=== PATIENT | female | born 1990 | race Caucasian/White ===

== ENCOUNTER 2021-09-06 17:04 | Emergency (ER) | payer OTHER, SELFPAY ==
[2021-09-06 18:20] VITALS: BP 144/78; PULSE 105; RESP 18; TEMP 36.3; O2SAT 98; BMI 48.6
--- NOTE | 2021-09-06 22:50 | PC.NURSE ---
patient not in waiting room at this time, appears to have eloped
== END 2021-09-06 22:52 | disposition left against medical advice (07) ==
PROVIDERS: Emergency Provider Emergency Medicine
DX: R42 Dizziness and giddiness (principal)
CPT/HCPCS: 99281; 99282

== ENCOUNTER 2021-12-18 20:40 | Emergency (ER) | payer OTHER, SELFPAY ==
--- NOTE | ~2021-12-18 | XR_ITS ---
EXAMINATION: XR CHEST CLINICAL INFORMATION: Cough and shortness of breath COMPARISON: None TECHNIQUE: Frontal view of the chest was obtained. FINDINGS: The lungs are clear. No airspace consolidation, pleural effusion, or pneumothorax. The cardiomediastinal silhouette is within normal limits. No acute osseous injury. XR/XR chest 1V IMPRESSION: No acute pulmonary process.
[2021-12-18 20:45] VITALS: BP 141/81; PULSE 95; RESP 18; TEMP 36.4; O2SAT 95; BMI 34.9
[2021-12-18 21:01] LABS: MANUAL DIFF FLAG NO
[2021-12-18 21:11] LABS: Basophils Absolute Auto 0.1 X10*3/uL (0.0-0.2); Basophils Percent Auto 0.6 % (0-2); Eosinophils Absolute Auto 0.6 X10*3/uL (0.0-0.4); Imm Gran Abs Auto 0.02 X10*3/uL (0.00-0.03); Imm Gran Pct Auto 0.2 % (0.0-0.4); Lymphocytes Absolute Auto 2.7 X10*3/uL (1.2-4.9); Lymphocytes Percent Auto 30.8 % (20-40); Mean Corpuscular HGB Conc 35.1 g/dl (31.0-35.0); Mean Corpuscular Hemoglobin 30.8 pg (27.0-33.0); Mean Corpuscular Volume 87.7 fL (80.0-98.0); Mean Platelet Volume 10.4 fL (9.4-12.3); Monocytes Absolute Auto 0.7 X10*3/uL (0.1-1.2); Monocytes Percent Auto 7.3 % (2-11); Neutrophils Absolute Auto 4.8 x10*3/uL (2.0-8.3); Neutrophils Percent Auto 54.1 % (45-73); Platelet Count 184 X10*3/uL (160-400); Red Blood Count 4.22 X10*6/uL (4.20-5.50); Red Cell Distribution Width 16.1 % (11.0-16.0); White Blood Count 8.9 X10*3/uL (4.8-10.8)
[2021-12-18 21:20] LABS: Alanine Aminotransferase 66 U/L (0-31); Albumin Level 3.8 g/dL (3.5-5.0); Alkaline Phosphatase 79 U/L (39-117); Anion Gap 14 (12-20); Aspartate Amino Transferase 102 U/L (5-31); Bilirubin Total 0.5 mg/dL (0.0-1.0); Blood Urea Nitrogen 5 mg/dL (9-16); Calcium 8.3 mg/dL (8.4-10.2); Carbon Dioxide 20 mmol/L (22-29); Chloride 107 mmol/L (96-108); Creatinine Clr Calc Pharmacy 104.8; Estimated Glomerular Filt Rate > 60; Glucose Random 172 mg/dL (60-115); IDNOW Serial# 16C4AD1C; Influenza A Negative (Negative); Influenza B2 Negative (Negative); Potassium 3.1 mmol/L (3.3-5.1); Sodium 138 mmol/L (135-145); Total Protein 7.5 g/dL (6.5-8.0)
[2021-12-18 21:21] LABS: COVID-19 Test Negative (Negative)
--- NOTE | 2021-12-18 23:07 | ED_ITS ---
HPI - URI/Sore Throat General Chief Complaint: Dyspnea Stated Complaint: bad cough, cant breathe. pneumonia? Time Seen by Provider: 12/18/21 23:06 Source: patient Mode of arrival: ambulatory Limitations: no limitations History of Present Illness MD elicited complaint: cough Pertinent past history: pneumonia and asthma Onset (ago): day(s) (3) Consistency: progressively worsening Severity: similar to previous episodes Description of mucous: yellow Able to tolerate fluids by mouth: Yes Exacerbating factors: other (coughing) Relieving factors: other (does have rescue inhaler) Associated symptoms: nasal congestion and cough Treatments prior to arrival: none Related Data Home Medications Medication Instructions Recorded Confirmed buprenorphine 8 mg-naloxone 2 mg 2 film buccal DAILY 05/04/20 sublingual film (Suboxone) buprenorphine HCl 8 mg sublingual 16 mg sublingual DAILY 01/05/21 tablet Previous Rx's Medication Instructions Recorded furosemide 20 mg tablet 10 mg PO QAM #30 tabs 05/01/20 albuterol sulfate 90 mcg/actuation 2 puff inhalation QID shortness of 07/27/20 aerosol inhaler breath or wheezing #8.5 grams furosemide 20 mg tablet 20 mg PO QAM PRN for swelling #30 11/01/20 tabs montelukast 10 mg tablet 10 mg PO DAILY #30 tabs 05/05/21 bupropion HCl 200 mg tablet,12 hr 200 mg PO BID #180 caps 06/11/21 sustained-release aripiprazole 2 mg tablet 2 mg PO DAILY #30 tabs 10/01/21 amoxicillin 875 mg-potassium 1 tab PO BID #14 tabs 12/18/21 clavulanate 125 mg tablet prednisone 20 mg tablet 40 mg PO DAILY 4 days #8 tabs 12/18/21 Allergies Allergy/AdvReac Type Severity Reaction Status Date / Time No Known Allergies Allergy Verified 01/05/21 09:28 Review of Systems Review of Systems: Constitutional : No Fever, No Chills ENT/Mouth : No Hoarseness, No sore throat, No Rhinorrhea Eyes: No Redness, No Discharge, No Vision Changes Cardiovascular : No Chest Pain, positive SOB, positive Dyspnea on Exertion, No Edema Respiratory : positive Cough, poss Sputum, positive Wheezing, Gastrointestinal : No Nausea, No Vomiting, No Diarrhea, No abdominal Pain Genitourinary : No Dysuria, No Hematuria Musculoskeletal : No joint pain, No Myalgias Skin : No rash Neuro : No Weakness, No Numbness, No Headache Psych : No anxiety, depression Heme/Lymph: No Bruising, No Bleeding Endocrine : No Polyuria, No Polydipsia All other systems reviewed and are negative ON LICENSE OF [facility] Past Medical History Attestation statement: The following information was validated with the patient. Medical History Active asthma Bipolar disorder Hepatitis C Social History Social History (Updated 12/18/21 @ 23:26 by Alona Colbert DO) Patient Tobacco Use Status: Tobacco use Unknown Advance Directives: No Advance Directives Information Provided: No Physical Exam Vital Signs: Vital Signs: Last Vital Signs Temp 98.1 F 12/18/21 23:13 Pulse 101 H 12/18/21 23:13 Resp 20 12/18/21 23:13 BP 131/73 12/18/21 23:13 Pulse Ox 95 12/18/21 23:13 O2 Del Method 12/18/21 23:13 BMI result Body Mass Index 34.9 Appearance: Alert. Oriented X3. No acute distress. Eyes: Pupils equal, round and reactive to light. ENT: Pharynx normal. Neck: Normal inspection. Neck supple. CVS: Normal heart rate and rhythm. Pulses normal. Respiratory: No respiratory distress. Breath sounds rhonchi and faint end exp wheezes noted Abdomen: Soft and nontender. Skin: Skin warm and dry. Normal skin color. Normal skin turgor. Extremities: No lower extremity edema. No calf ttp Neuro: Oriented X 3. No motor deficit. No sensory deficit. Course Course Course Narrative: I think the patient walked out prior to DC instructions and I couldn't listen to her lungs prior to DC MDM - URI/Sore Throat MDM Narrative Medical decision making narrative: 31 yo female with hx of asthma, pneumonia, hep C (suspected cause of her elevated LFTs has no abdominal complaints - pending treatment) here with c/o URI symptoms and cough will give neb treatment, start on steroids and augmentin for bronchitis. Anticipate DC home - not toxic, no resp distress or hypoxia. Lab Data Result diagrams: 12/18/21 20:52 12/18/21 20:52 Labs: Lab Results 12/18/21 12/18/21 12/18/21 Range/Units 20:52 20:52 20:52 WBC 8.9 (4.8-10.8) X10*3/uL RBC 4.22 (4.20-5.50) X10*6/uL Hgb 13.0 (12.0-16.0) g/dl Hct 37.0 (37.0-47.0) % MCV 87.7 (80.0-98.0) fL MCH 30.8 (27.0-33.0) pg MCHC 35.1 H (31.0-35.0) g/dl RDW 16.1 H (11.0-16.0) % Plt Count 184 (160-400) X10*3/uL MPV 10.4 (9.4-12.3) fL Immature Gran % (Auto) 0.2 (0.0-0.4) % Neut % (Auto) 54.1 (45-73) % Lymph % (Auto) 30.8 (20-40) % [place] % (Auto) 7.3 (2-11) % Eos % (Auto) 7.0 H (0-4) % Baso % (Auto) 0.6 (0-2) % Lymph # (Auto) 2.7 (1.2-4.9) X10*3/uL [place] # (Auto) 0.7 (0.1-1.2) X10*3/uL Eos # (Auto) 0.6 H (0.0-0.4) X10*3/uL Baso # (Auto) 0.1 (0.0-0.2) X10*3/uL Abs Immat Gran (auto) 0.02 (0.00-0.03) X10*3/uL Absolute Neuts (auto) 4.8 (2.0-8.3) x10*3/uL Absolute Nucleated RBC 0.000 (0.0-0.012) X10*3/uL Nucleated RBC % (auto) 0.0 (0.0-0.2) /100WBC Sodium 138 (135-145) mmol/L Potassium 3.1 L (3.3-5.1) mmol/L Chloride 107 (96-108) mmol/L Carbon Dioxide 20 L (22-29) mmol/L Anion Gap 14 (12-20) BUN 5 L (9-16) mg/dL Creatinine 0.75 (0.5-1.4) mg/dL Estim Creat Clear Calc 104.8 Estimated GFR > 60 Random Glucose 172 H (60-115) mg/dL Calcium 8.3 L (8.4-10.2) mg/dL Total Bilirubin 0.5 (0.0-1.0) mg/dL AST 102 H (5-31) U/L ALT 66 H (0-31) U/L Alkaline Phosphatase 79 (39-117) U/L Total Protein 7.5 (6.5-8.0) g/dL Albumin 3.8 (3.5-5.0) g/dL COVID-19 (JAMES) (Negative) COVID-19 Clin Com Influenza Type A (VALE) Negative (Negative) Influenza Type B (VALE) Negative (Negative) Influenza A & B Note See Note 12/18/21 Range/Units 20:52 WBC (4.8-10.8) X10*3/uL RBC (4.20-5.50) X10*6/uL Hgb (12.0-16.0) g/dl Hct (37.0-47.0) % MCV (80.0-98.0) fL MCH (27.0-33.0) pg MCHC (31.0-35.0) g/dl RDW (11.0-16.0) % Plt Count (160-400) X10*3/uL MPV (9.4-12.3) fL Immature Gran % (Auto) (0.0-0.4) % Neut % (Auto) (45-73) % Lymph % (Auto) (20-40) % [place] % (Auto) (2-11) % Eos % (Auto) (0-4) % Baso % (Auto) (0-2) % Lymph # (Auto) (1.2-4.9) X10*3/uL [place] # (Auto) (0.1-1.2) X10*3/uL Eos # (Auto) (0.0-0.4) X10*3/uL Baso # (Auto) (0.0-0.2) X10*3/uL Abs Immat Gran (auto) (0.00-0.03) X10*3/uL Absolute Neuts (auto) (2.0-8.3) x10*3/uL Absolute Nucleated RBC (0.0-0.012) X10*3/uL Nucleated RBC % (auto) (0.0-0.2) /100WBC Sodium (135-145) mmol/L Potassium (3.3-5.1) mmol/L Chloride (96-108) mmol/L Carbon Dioxide (22-29) mmol/L Anion Gap (12-20) BUN (9-16) mg/dL Creatinine (0.5-1.4) mg/dL Estim Creat Clear Calc Estimated GFR Random Glucose (60-115) mg/dL Calcium (8.4-10.2) mg/dL Total Bilirubin (0.0-1.0) mg/dL AST (5-31) U/L ALT (0-31) U/L Alkaline Phosphatase (39-117) U/L Total Protein (6.5-8.0) g/dL Albumin (3.5-5.0) g/dL COVID-19 (JAMES) Negative (Negative) COVID-19 Clin Com See Note Influenza Type A (VALE) (Negative) Influenza Type B (VALE) (Negative) Influenza A & B Note Discharge Plan Discharge Clinical Impression: Bronchitis, Acute hypokalemia, Elevated LFTs Patient Disposition: Elopement Instructions: Hypokalemia (ED), Acute Bronchitis (ED) Additional Instructions: return to ED for any worsening symptoms or concerns please follow up with your doctor about your liver you can use inhaler 2 to 4 puffs every 2 to 4 hours for wheezing Prescriptions: New prednisone 20 mg tablet 40 mg PO DAILY 4 Days Qty: 8 0RF amoxicillin-pot clavulanate 875-125 mg tablet 1 tab PO BID Qty: 14 0RF No Action furosemide 20 mg tablet 10 mg PO QAM Qty: 30 0RF Hold Instructions: Dose Change Rx Instructions: 1 tablet every a/m PRN for swelling buprenorphine-naloxone [Suboxone] 8-2 mg film 2 film buccal DAILY Rx Instructions: place 1 film on inside of (each) cheek albuterol sulfate 90 mcg/actuation HFA aerosol inhaler 2 puff inhalation QID Qty: 8.5 2RF furosemide 20 mg tablet 20 mg PO QAM PRN (Reason: for swelling) Qty: 30 4RF montelukast 10 mg tablet 10 mg PO DAILY Qty: 30 0RF bupropion HCl 200 mg tablet sustained-release 12 hr 200 mg PO BID Qty: 180 1RF aripiprazole 2 mg tablet 2 mg PO DAILY Qty: 30 1RF buprenorphine HCl 8 mg tablet, sublingual 16 mg sublingual DAILY Referrals: Physician,Unknown J [Primary Care Provider] - (PCP if not better x 2 days) Stand Alone Forms: Work/School Release
[2021-12-18 23:13] VITALS: BP 131/73; PULSE 101; RESP 20; TEMP 36.7; O2SAT 95
[2021-12-18] MEDS: Potassium Chloride ER 20 MEQ TAB.ER.PRT 40 MEQ PO (23:23)
[2021-12-18] MEDS: Amoxicillin/Potassium Clav 875 MG TABLET PO (23:23)
[2021-12-18] MEDS: predniSONE 20 MG TABLET 40 MG PO (23:23)
[2021-12-18] MEDS: Albuterol Sulfate (0.083%) 2.5 MG/3 ML VIAL.NEB INHALE (23:38)
[2021-12-18] MEDS: Albuterol Sulfate 90 MCG 8 GM INHALER 2 PUFF INHALE (23:38)
== END 2021-12-19 00:31 | disposition left against medical advice (07) ==
PROVIDERS: Emergency Provider Emergency Medicine
DX: J40 Bronchitis, not specified as acute or chronic (principal); E87.6 Hypokalemia; R05.9 Cough, unspecified; R06.02 Shortness of breath; R79.89 Other specified abnormal findings of blood chemistry; Z20.822 Contact with and (suspected) exposure to COVID-19; Z79.899 Other long term (current) drug therapy
CPT/HCPCS: 71045; 80053; 85025; 87502; 87635; 99284

== ENCOUNTER 2022-03-02 16:45 | Emergency (ER) | payer OTHER, SELFPAY ==
[2022-03-02 16:48] VITALS: BP 158/78; PULSE 107; RESP 20; TEMP 36.9; O2SAT 97; BMI 44.7
[2022-03-02 17:33] LABS: MANUAL DIFF FLAG NO
[2022-03-02 17:48] LABS: COVID-19 Test Negative (Negative); IDNOW Serial# 16C4AD1C
[2022-03-02 17:55] LABS: Anion Gap 15 (12-20); Blood Urea Nitrogen 4 mg/dL (9-16); Calcium 8.6 mg/dL (8.4-10.2); Carbon Dioxide 21 mmol/L (22-29); Chloride 107 mmol/L (96-108); Creatinine Clr Calc Pharmacy 137.2; Estimated Glomerular Filt Rate > 60; Glucose Random 137 mg/dL (60-115); Potassium 3.2 mmol/L (3.3-5.1); Sodium 140 mmol/L (135-145)
[2022-03-02 18:04] LABS: Basophils Absolute Auto 0.1 X10*3/uL (0.0-0.2); Basophils Percent Auto 0.5 % (0-2); Eosinophils Absolute Auto 0.3 X10*3/uL (0.0-0.4); Eosinophils Percent Auto 2.8 % (0-4); Hematocrit 35.6 % (37.0-47.0); Hemoglobin 12.4 g/dl (12.0-16.0); Imm Gran Abs Auto 0.05 X10*3/uL (0.00-0.03); Imm Gran Pct Auto 0.5 % (0.0-0.4); Lymphocytes Absolute Auto 2.5 X10*3/uL (1.2-4.9); Mean Corpuscular HGB Conc 34.8 g/dl (31.0-35.0); Mean Corpuscular Hemoglobin 31.5 pg (27.0-33.0); Mean Corpuscular Volume 90.4 fL (80.0-98.0); Mean Platelet Volume 10.5 fL (9.4-12.3); Monocytes Absolute Auto 0.7 X10*3/uL (0.1-1.2); Monocytes Percent Auto 6.2 % (2-11); Neutrophils Absolute Auto 6.9 x10*3/uL (2.0-8.3); Platelet Count 142 X10*3/uL (160-400); Red Blood Count 3.94 X10*6/uL (4.20-5.50); Red Cell Distribution Width 13.3 % (11.0-16.0); White Blood Count 10.4 X10*3/uL (4.8-10.8)
== END 2022-03-02 21:38 | disposition left against medical advice (07) ==
LOC: HO.ED 21:24
PROVIDERS: Emergency Provider Emergency Medicine
DX: J45.909 Unspecified asthma, uncomplicated (principal); R06.02 Shortness of breath; Z20.822 Contact with and (suspected) exposure to COVID-19
CPT/HCPCS: 36415; 80048; 85025; 87635; 99281; 99283

== ENCOUNTER 2022-03-03 01:11 | Emergency (ER) | payer OTHER, SELFPAY ==
[2022-03-03 01:16] VITALS: BP 135/72; PULSE 95; RESP 22; TEMP 37; O2SAT 94; BMI 24.5
--- NOTE | 2022-03-03 02:35 | ED.SOB ---
HPI - SOB/Dyspnea General Chief Complaint: Dyspnea Stated Complaint: Difficulty breathing Time Seen by Provider: 03/03/22 02:34 Source: patient Mode of arrival: ambulatory Limitations: no limitations History of Present Illness HPI Narrative: Patient is 4 months with history of asthma questionable sleep apnea comes here for increased shortness of breath for last 2-3 days with cough with mucopurulent phlegm no fever no chills saturating 94% on arrival had similar episode in the past with walking pneumonia Related Data Home Medications Medication Instructions Recorded Confirmed buprenorphine 8 mg-naloxone 2 mg 2 film buccal DAILY 05/04/20 sublingual film (Suboxone) buprenorphine HCl 8 mg sublingual 16 mg sublingual DAILY 01/05/21 tablet Previous Rx's Medication Instructions Recorded furosemide 20 mg tablet 10 mg PO QAM #30 tabs 05/01/20 albuterol sulfate 90 mcg/actuation 2 puff inhalation QID shortness of 07/27/20 aerosol inhaler breath or wheezing #8.5 grams furosemide 20 mg tablet 20 mg PO QAM PRN for swelling #30 11/01/20 tabs montelukast 10 mg tablet 10 mg PO DAILY #30 tabs 05/05/21 bupropion HCl 200 mg tablet,12 hr 200 mg PO BID #180 caps 06/11/21 sustained-release aripiprazole 2 mg tablet 2 mg PO DAILY #30 tabs 10/01/21 amoxicillin 875 mg-potassium 1 tab PO BID #14 tabs 12/18/21 clavulanate 125 mg tablet prednisone 20 mg tablet 40 mg PO DAILY 4 days #8 tabs 12/18/21 cefuroxime axetil 500 mg tablet 500 mg PO BID #20 tabs 03/03/22 prednisone 20 mg tablet 40 mg PO DAILY #10 tabs 03/03/22 Allergies Allergy/AdvReac Type Severity Reaction Status Date / Time No Known Allergies Allergy Verified 03/03/22 01:19 Review of Systems Review of Systems: Yes all other systems are reviewed and are negative PMFSH Past Medical History Medical History Active asthma Bipolar disorder Hepatitis C Social History Social History Patient Tobacco Use Status: Tobacco use Unknown Advance Directives: No Advance Directives Information Provided: Yes Physical Exam Vital Signs: Vital Signs: Last Vital Signs Temp 98.6 F 03/03/22 01:16 Pulse 88 03/03/22 03:09 Resp 16 03/03/22 03:09 BP 135/72 03/03/22 01:16 Pulse Ox 94 03/03/22 01:16 O2 Del Method 03/03/22 01:16 BMI result Body Mass Index 24.5 Appearance: Alert. Oriented X3. No acute distress. Eyes: No pallor ENT: Pharynx normal. Oral Mucosa moist Neck: Normal inspection. Neck supple. CVS: Normal heart rate and rhythm. Pulses normal. Respiratory: Mild distress Equal air entry bilateral, bilateral wheezing and rhonchi Abdomen: Gravid uterus ,Bowel sounds are present, no mass palpable, no CVA tenderness Skin: Skin warm and dry. Normal skin color. Normal skin turgor. Extremities: No lower extremity edema. No calf tenderness Neuro: Oriented X 3. Discharge Plan Discharge Clinical Impression: Acute asthmatic bronchitis Patient Disposition: Home, Self-Care Instructions: Acute Bronchitis (ED) Additional Instructions: Continue to use your inhaler Take prednisone and Ceftin as prescribed and follow with PCP Prescriptions: New prednisone 20 mg tablet 40 mg PO DAILY Qty: 10 0RF cefuroxime axetil 500 mg tablet 500 mg PO BID Qty: 20 0RF No Action furosemide 20 mg tablet 10 mg PO QAM Qty: 30 0RF Hold Instructions: Dose Change Rx Instructions: 1 tablet every a/m PRN for swelling buprenorphine-naloxone [Suboxone] 8-2 mg film 2 film buccal DAILY Rx Instructions: place 1 film on inside of (each) cheek albuterol sulfate 90 mcg/actuation HFA aerosol inhaler 2 puff inhalation QID Qty: 8.5 2RF furosemide 20 mg tablet 20 mg PO QAM PRN (Reason: for swelling) Qty: 30 4RF montelukast 10 mg tablet 10 mg PO DAILY Qty: 30 0RF bupropion HCl 200 mg tablet sustained-release 12 hr 200 mg PO BID Qty: 180 1RF aripiprazole 2 mg tablet 2 mg PO DAILY Qty: 30 1RF prednisone 20 mg tablet 40 mg PO DAILY 4 Days Qty: 8 0RF amoxicillin-pot clavulanate 875-125 mg tablet 1 tab PO BID Qty: 14 0RF buprenorphine HCl 8 mg tablet, sublingual 16 mg sublingual DAILY
[2022-03-03 03:09] VITALS: PULSE 88; RESP 16; O2SAT 97
[2022-03-03] MEDS: Albuterol/Iprat 2.5/0.5MG 3 ML AMPUL.NEB INHALE (03:09)
[2022-03-03] MEDS: Albuterol Sulfate (0.083%) 2.5 MG/3 ML VIAL.NEB INHALE (03:09)
[2022-03-03] MEDS: predniSONE 20 MG TABLET 40 MG PO (03:24)
--- NOTE | 2022-03-03 03:26 | PC.NURSE ---
Pt a&o, no sign of distress. Medicated pt before discharge. Reviewed discharge instruction before discharge. Pt verbalized understanding.
== END 2022-03-03 03:28 | disposition home or self-care (01) ==
PROVIDERS: Emergency Provider Internal Medicine
DX: J45.909 Unspecified asthma, uncomplicated (principal); R06.02 Shortness of breath; Z79.899 Other long term (current) drug therapy
CPT/HCPCS: 94640; 99283; 99284

== ENCOUNTER 2022-05-12 16:46 | Emergency (ER) | payer OTHER, SELFPAY ==
--- NOTE | ~2022-05-12 | US_ITS ---
EXAMINATION: US VENOUS ULTRASOUND WITH DOPPLER LOWER EXTREMITY, BILATERAL CLINICAL INFORMATION: Bilateral lower leg swelling and pain. 25 weeks . COMPARISON: None TECHNIQUE: Ultrasound of the deep veins is performed from the hip to the calf with compression sonography and color and pulse Doppler assessment. Spectral analysis with color-flow imaging is performed. FINDINGS: RIGHT: There is normal venous compression and respiratory variation and augmented flow. The visualized common femoral vein, superficial femoral vein, profunda femoral vein, popliteal vein, and the trifurcation region shows no evidence of deep venous thrombosis. There is no significant popliteal fossa cyst. The peroneal calf veins are not seen. Small benign-appearing lymph node in the right proximal thigh/groin noted measuring 0.7 cm in short axis. LEFT: There is normal venous compression and respiratory variation and augmented flow. The visualized common femoral vein, superficial femoral vein, profunda femoral vein, popliteal vein, and the trifurcation region shows no evidence of deep venous thrombosis. There is no significant popliteal fossa cyst. The peroneal calf veins are not seen. If the patient's symptoms persist, followup ultrasound in 5 days 7 days might be of value to exclude proximal propagation from a non-visualized calf vein. US/US venous duplex LE BI IMPRESSION: 1. No DVT demonstrated in the bilateral lower extremity.
--- NOTE | ~2022-05-12 | XR_ITS ---
EXAMINATION: XR CHEST CLINICAL INFORMATION: Shortness of breath. . COMPARISON: Chest radiograph 12/18/2021. TECHNIQUE: Frontal view of the chest was obtained. FINDINGS: The patient is slightly rotated limiting assessment of the cardiomediastinal silhouette. Apparent widening of the right lower mediastinum is likely artifactual. No focal airspace opacity, pleural effusion or pneumothorax. No acute osseous abnormalities. The visualized upper abdomen is within normal limits. XR/XR chest 1V IMPRESSION: 1. No acute cardiopulmonary findings. 2. Apparent widening of the right lower mediastinum is likely artifactual and related with patient rotation.
[2022-05-12 16:52] VITALS: BP 150/78; PULSE 119; RESP 22; TEMP 36; O2SAT 97; BMI 47.2
--- NOTE | 2022-05-12 16:53 | ED_ITS ---
HPI - Extremity Injury (Lower) General Chief Complaint: General Medical <GILBERTO Wharton - Last Filed: 05/12/22 17:01> Stated Complaint: bilateral leg swelling <GILBERTO Wharton - Last Filed: 05/12/22 17:01> Time Seen by Provider: 05/12/22 17:11 <GILBERTO Wharton - Last Filed: 05/12/22 17:01> Source: patient <Tanvi Vazquez MD - Last Filed: 05/12/22 19:19> Mode of arrival: ambulatory <Tanvi Vazquez MD - Last Filed: 05/12/22 19:19> Limitations: no limitations <Tanvi Vazquez MD - Last Filed: 05/12/22 19:19> History of Present Illness HPI Narrative: Patient comes to the emergency room complaining of cough, shortness of breath and lower extremity edema for a week. Patient is known to have asthma, used her inhaler without any relief. Patient is a female at 25 weeks of gestational age. The patient states that she has not had any abdominal pain, no vaginal leakage/bleeding. Patient states that for her 1st , she had lower extremity edema, she was given Lasix and then she was doing better. To her knowledge, patient has never been d iagnosed with preeclampsia or HELLP syndrome. Patient states that in all her doctor visits or ER visits, her blood pressure is initially high and then it comes back to normal within a few minutes. This time, patient complaining shortness of breath and lower extremity edema. <Tanvi Vazquez MD - Last Filed: 05/12/22 19:19> Related Data Home Medications: Home Medications Medication Instructions Recorded Confirmed buprenorphine 8 mg-naloxone 2 mg 2 film buccal DAILY 05/04/20 sublingual film (Suboxone) buprenorphine HCl 8 mg sublingual 16 mg sublingual DAILY 01/05/21 tablet Previous Rx's Medication Instructions Recorded furosemide 20 mg tablet 10 mg PO QAM #30 tabs 05/01/20 albuterol sulfate 90 mcg/actuation 2 puff inhalation QID shortness of 07/27/20 aerosol inhaler breath or wheezing #8.5 grams furosemide 20 mg tablet 20 mg PO QAM PRN for swelling #30 11/01/20 tabs montelukast 10 mg tablet 10 mg PO DAILY #30 tabs 05/05/21 bupropion HCl 200 mg tablet,12 hr 200 mg PO BID #180 caps 06/11/21 sustained-release aripiprazole 2 mg tablet 2 mg PO DAILY #30 tabs 10/01/21 amoxicillin 875 mg-potassium 1 tab PO BID #14 tabs 12/18/21 clavulanate 125 mg tablet prednisone 20 mg tablet 40 mg PO DAILY 4 days #8 tabs 12/18/21 cefuroxime axetil 500 mg tablet 500 mg PO BID #20 tabs 03/03/22 prednisone 20 mg tablet 40 mg PO DAILY #10 tabs 03/03/22 <GILBERTO Wharton - Last Filed: 05/12/22 17:01> Allergies/Adverse Reactions: Allergies Allergy/AdvReac Type Severity Reaction Status Date / Time No Known Allergies Allergy Verified 03/03/22 01:19 <GILBERTO Wharton - Last Filed: 05/12/22 17:01> Review of Systems Review of Systems: Constitutional : No Weight loss, No Fever, No Chills, No Night Sweats, No Fatigue, No Malaise ENT/Mouth : No Hearing loss, No Ear Pain, No Nasal Congestion, No Sinus Pain, No Hoarseness, No sore throat, No Rhinorrhea, No Swallowing Difficulty Eyes: No Eye Pain, No Swelling, No Redness, No Foreign Body, No Discharge, No Vision Changes Cardiovascular : No Chest Pain, No SOB, No Dyspnea on Exertion, no orthopnea, complaining of lower extremity edema worsening over a week Respiratory : Complaining of cough, wheezing not responding well to albuterol treatment. Gastrointestinal : No Nausea, No Vomiting, No Diarrhea, No Constipation, No ab dominal Pain, No Hematochezia, No Melena Genitourinary : no irregular bleeding, No Dysuria, No Urinary Frequency, No Hematuria, No Urinary Incontinence, No Urgency, No Flank Pain, No Urinary Flow Changes, No Hesitancy Musculoskeletal : No joint pain, No Myalgias, No Joint Swelling Skin : No Skin Lesions, No rash Neuro : No Weakness, No Numbness, No Paresthesias, No Loss of Consciousness, No Dizziness, No Headache Psych : No Anxiety/Panic, No Depression, No SI/HI/AH/VH, No Social Issues, Heme/Lymph: No Bruising, No Bleeding,No Lymphadenopathy Endocrine : No Polyuria, No Polydipsia, No Temperature Intolerance <Tanvi Vazquez MD - Last Filed: 05/12/22 19:19> [facility] Past Medical History Medical History: Medical History Active asthma Bipolar disorder Hepatitis C <GILBERTO Wharton - Last Filed: 05/12/22 17:01> Social History Social History: Social History Alcohol intake: never Patient Tobacco Use Status: Tobacco use Unknown Smoked in Last 30 Days: Yes Use of substances other than those prescribed or required for medical reasons: No Advance Directives: No Advance Directives Information Provided: Yes <GILBERTO Wharton - Last Filed: 05/12/22 17:01> Physical Exam Vital Signs: Vital Signs: Last Vital Signs Temp 96.8 F 05/12/22 16:52 Pulse 92 05/12/22 18:16 Resp 18 05/12/22 18:16 BP 150/78 H 05/12/22 16:52 Pulse Ox 97 05/12/22 16:52 O2 Del Method 05/12/22 16:52 BMI result Body Mass Index 47.2 <GILBERTO Wharton - Last Filed: 05/12/22 17:01> Vital Signs: Last Vital Signs Temp 96.8 F 05/12/22 16:52 Pulse 92 05/12/22 18:16 Resp 18 05/12/22 18:16 BP 150/78 H 05/12/22 16:52 Pulse Ox 97 05/12/22 16:52 O2 Del Method 05/12/22 16:52 BMI result Body Mass Index 47.2 <Tanvi Vazquez MD - Last Filed: 05/12/22 19:19> Const: Other: Appearance: Alert. Oriented X3. No acute distress. Eyes: Pupils equal, round and reactive to light. ENT: Pharynx normal. Neck: Normal inspection. Neck supple. No lymph nodes noted. No crepitus CVS: Normal heart rate and rhythm. Pulses normal. Normal S1 and S2 Respiratory: No respiratory distress. Breath sounds normal. No Wheezing. No rales Abdomen: Soft and nontender. No rigidity. No distention. Patient has edematous skin around the lower abdomen with pitting edema, bedside ultrasound shows a heart rate of approximately 120-130, good movement, no abdominal pain at all. Skin: Skin warm and dry. Normal skin color. Normal skin turgor. Extremities: No lower extremity edema. No Lacerations. No Rash Neuro: Oriented X 3. No motor deficit. No sensory deficit. Moving all extremities. No slurred speech. CN 2 through 12 grossly intact Psych: calm, cooperative, normal affect <Tanvi Vazquez MD - Last Filed: 05/12/22 19:19> Course Course Course Narrative: RME--32-year-old female with a past medical history of asthma, bipolar, at 25 weeks' gestation presenting complaining of bilateral LE swelling, pain, and SOB worsening over the past week. Admits to similar symptoms during prior requiring IV Lasix. Denies any -related complaints at present including vaginal bleeding/discharge or abdominal pain + very tense, swollen and painful bilateral LE pitting edema, patient very dyspneic and SOB when walked into triage. Expiratory wheeze noted EKG, labs, CXR, DuoNeb ordered Charge nurse aware and patient to be brought back <GILBERTO Wharton - Last Filed: 05/12/22 17:01> RME--32-year-old female with a past medical history of asthma, bipolar, at 25 weeks' gestation presenting complaining of bilateral LE swelling, pain, and SOB worsening over the past week. Admits to similar symptoms during prior requiring IV Lasix. Denies any -related complaints at present including vaginal bleeding/discharge or abdominal pain + very tense, swollen and painful bilateral LE pitting edema, patient very dyspneic and SOB when walked into triage. Expiratory wheeze noted EKG, labs, CXR, DuoNeb ordered Charge nurse aware and patient to be brought back I discussed the patient with Dr. Krishnamurthy, who is concerned that patient needs constant heart rate monitoring. Also, patient is to be ruled out for cardiomyopathy and pulmonary embolism. -ultrasound is negative for DVT. Patient is no longer wheezing after albuterol treatment and Solu-Medrol. When trying to get in touch with [facility] to transfer the patient 19:10, I spoke with packing and final assembly supervisor resident Dr. Monica Cabello, pt will be going to for further monitoring I discussed the plan with the patient, agreeable. Patient will be taken by ambulance Of note, patient's blood pressure has been fluctuating between 150/78 to 114 over 53, back to 150 systolic. <Tanvi Vazquez MD - Last Filed: 05/12/22 19:19> Medications Administered Discontinued Medications Generic Name Dose Route Start Last Admin Trade Name Freq PRN Reason Stop Dose Admin Albuterol/Ipratropium 3 ml 05/12/22 16:53 05/12/22 18:16 Albuterol/Iprat 2.5/0.5mg 3 Ml Ampul.Neb INHALE 05/12/22 16:54 3 ml ONCE ONE Administration Methylprednisolone Sodium Succinate 125 mg 05/12/22 17:42 05/12/22 18:32 Methylprednisolone Sod Succ 125 Mg/2 Ml Vial IVPUSH 05/12/22 17:43 125 mg ONCE ONE Administration <GILBERTO Wharton - Last Filed: 05/12/22 17:01> Medications Administered Discontinued Medications Generic Name Dose Route Start Last Admin Trade Name Freq PRN Reason Stop Dose Admin Albuterol/Ipratropium 3 ml 05/12/22 16:53 05/12/22 18:16 Albuterol/Iprat 2.5/0.5mg 3 Ml Ampul.Neb INHALE 05/12/22 16:54 3 ml ONCE ONE Administration Methylprednisolone Sodium Succinate 125 mg 05/12/22 17:42 05/12/22 18:32 Methylprednisolone Sod Succ 125 Mg/2 Ml Vial IVPUSH 05/12/22 17:43 125 mg ONCE ONE Administration <Tanvi Vazquez MD - Last Filed: 05/12/22 19:19> MDM - Extremity Injury (Lower) Lab Data Result diagrams: : 05/12/22 17:43 05/12/22 17:43 <GILBERTO Wharton - Last Filed: 05/12/22 17:01> Labs: Lab Results 05/12/22 05/12/22 05/12/22 Range/Units 17:43 17:43 17:43 WBC 9.3 (4.8-10.8) X10*3/uL RBC 3.37 L (4.20-5.50) X10*6/uL Hgb 10.5 L (12.0-16.0) g/dl Hct 30.8 L (37.0-47.0) % MCV 91.4 (80.0-98.0) fL MCH 31.2 (27.0-33.0) pg MCHC 34.1 (31.0-35.0) g/dl RDW 12.9 (11.0-16.0) % Plt Count 149 L (160-400) X10*3/uL MPV 10.3 (9.4-12.3) fL Immature Gran % (Auto) 0.5 H (0.0-0.4) % Neut % (Auto) 70.4 (45-73) % Lymph % (Auto) 18.2 L (20-40) % [place] % (Auto) 5.7 (2-11) % Eos % (Auto) 4.7 H (0-4) % Baso % (Auto) 0.5 (0-2) % Lymph # (Auto) 1.7 (1.2-4.9) X10*3/uL [place] # (Auto) 0.5 (0.1-1.2) X10*3/uL Eos # (Auto) 0.4 (0.0-0.4) X10*3/uL Baso # (Auto) 0.1 (0.0-0.2) X10*3/uL Abs Immat Gran (auto) 0.05 H (0.00-0.03) X10*3/uL Absolute Neuts (auto) 6.6 (2.0-8.3) x10*3/uL Absolute Nucleated RBC 0.000 (0.0-0.012) X10*3/uL Nucleated RBC % (auto) 0.0 (0.0-0.2) /100WBC PT 13.1 (10.0-13.1) SEC INR 1.1 (0.9-1.1) Sodium 139 (135-145) mmol/L Potassium 3.4 (3.3-5.1) mmol/L Chloride 106 (96-108) mmol/L Carbon Dioxide 23 (22-29) mmol/L Anion Gap 13 (12-20) BUN 4 L (9-16) mg/dL Creatinine 0.63 (0.5-1.4) mg/dL Estim Creat Clear Calc 147.1 Estimated GFR > 60 Random Glucose 142 H (60-115) mg/dL Calcium 8.2 L (8.4-10.2) mg/dL Magnesium 1.6 (1.6-2.6) mg/dL Total Bilirubin 0.8 (0.0-1.0) mg/dL Direct Bilirubin 0.5 (0.0-0.5) mg/dL AST 100 H (5-31) U/L ALT 43 H (0-31) U/L Alkaline Phosphatase 106 (39-117) U/L Troponin I High Sens (<3.5-17.0) ng/L B-Natriuretic Peptide (<100) pg/mL Total Protein 6.6 (6.5-8.0) g/dL Albumin 3.1 L (3.5-5.0) g/dL Beta HCG, Quant 8262 mIU/mL COVID-19 (JAMES) (Negative) COVID-19 Clin Com 05/12/22 05/12/22 05/12/22 Range/Units 17:43 17:43 17:55 WBC (4.8-10.8) X10*3/uL RBC (4.20-5.50) X10*6/uL Hgb (12.0-16.0) g/dl Hct (37.0-47.0) % MCV (80.0-98.0) fL MCH (27.0-33.0) pg MCHC (31.0-35.0) g/dl RDW (11.0-16.0) % Plt Count (160-400) X10*3/uL MPV (9.4-12.3) fL Immature Gran % (Auto) (0.0-0.4) % Neut % (Auto) (45-73) % Lymph % (Auto) (20-40) % [place] % (Auto) (2-11) % Eos % (Auto) (0-4) % Baso % (Auto) (0-2) % Lymph # (Auto) (1.2-4.9) X10*3/uL [place] # (Auto) (0.1-1.2) X10*3/uL Eos # (Auto) (0.0-0.4) X10*3/uL Baso # (Auto) (0.0-0.2) X10*3/uL Abs Immat Gran (auto) (0.00-0.03) X10*3/uL Absolute Neuts (auto) (2.0-8.3) x10*3/uL Absolute Nucleated RBC (0.0-0.012) X10*3/uL Nucleated RBC % (auto) (0.0-0.2) /100WBC PT (10.0-13.1) SEC INR (0.9-1.1) Sodium (135-145) mmol/L Potassium (3.3-5.1) mmol/L Chloride (96-108) mmol/L Carbon Dioxide (22-29) mmol/L Anion Gap (12-20) BUN (9-16) mg/dL Creatinine (0.5-1.4) mg/dL Estim Creat Clear Calc Estimated GFR Random Glucose (60-115) mg/dL Calcium (8.4-10.2) mg/dL Magnesium (1.6-2.6) mg/dL Total Bilirubin (0.0-1.0) mg/dL Direct Bilirubin (0.0-0.5) mg/dL AST (5-31) U/L ALT (0-31) U/L Alkaline Phosphatase (39-117) U/L Troponin I High Sens < 3.5 (<3.5-17.0) ng/L B-Natriuretic Peptide 22 (<100) pg/mL Total Protein (6.5-8.0) g/dL Albumin (3.5-5.0) g/dL Beta HCG, Quant mIU/mL COVID-19 (JAMES) Negative (Negative) COVID-19 Clin Com See Note <GILBERTO Wharton - Last Filed: 05/12/22 17:01> Lab Results 05/12/22 05/12/22 05/12/22 Range/Units 17:43 17:43 17:43 WBC 9.3 (4.8-10.8) X10*3/uL RBC 3.37 L (4.20-5.50) X10*6/uL Hgb 10.5 L (12.0-16.0) g/dl Hct 30.8 L (37.0-47.0) % MCV 91.4 (80.0-98.0) fL MCH 31.2 (27.0-33.0) pg MCHC 34.1 (31.0-35.0) g/dl RDW 12.9 (11.0-16.0) % Plt Count 149 L (160-400) X10*3/uL MPV 10.3 (9.4-12.3) fL Immature Gran % (Auto) 0.5 H (0.0-0.4) % Neut % (Auto) 70.4 (45-73) % Lymph % (Auto) 18.2 L (20-40) % [place] % (Auto) 5.7 (2-11) % Eos % (Auto) 4.7 H (0-4) % Baso % (Auto) 0.5 (0-2) % Lymph # (Auto) 1.7 (1.2-4.9) X10*3/uL [place] # (Auto) 0.5 (0.1-1.2) X10*3/uL Eos # (Auto) 0.4 (0.0-0.4) X10*3/uL Baso # (Auto) 0.1 (0.0-0.2) X10*3/uL Abs Immat Gran (auto) 0.05 H (0.00-0.03) X10*3/uL Absolute Neuts (auto) 6.6 (2.0-8.3) x10*3/uL Absolute Nucleated RBC 0.000 (0.0-0.012) X10*3/uL Nucleated RBC % (auto) 0.0 (0.0-0.2) /100WBC PT 13.1 (10.0-13.1) SEC INR 1.1 (0.9-1.1) Sodium 139 (135-145) mmol/L Potassium 3.4 (3.3-5.1) mmol/L Chloride 106 (96-108) mmol/L Carbon Dioxide 23 (22-29) mmol/L Anion Gap 13 (12-20) BUN 4 L (9-16) mg/dL Creatinine 0.63 (0.5-1.4) mg/dL Estim Creat Clear Calc 147.1 Estimated GFR > 60 Random Glucose 142 H (60-115) mg/dL Calcium 8.2 L (8.4-10.2) mg/dL Magnesium 1.6 (1.6-2.6) mg/dL Total Bilirubin 0.8 (0.0-1.0) mg/dL Direct Bilirubin 0.5 (0.0-0.5) mg/dL AST 100 H (5-31) U/L ALT 43 H (0-31) U/L Alkaline Phosphatase 106 (39-117) U/L Troponin I High Sens (<3.5-17.0) ng/L B-Natriuretic Peptide (<100) pg/mL Total Protein 6.6 (6.5-8.0) g/dL Albumin 3.1 L (3.5-5.0) g/dL Beta HCG, Quant 8262 mIU/mL COVID-19 (JAMES) (Negative) COVID-19 Clin Com 05/12/22 05/12/22 05/12/22 Range/Units 17:43 17:43 17:55 WBC (4.8-10.8) X10*3/uL RBC (4.20-5.50) X10*6/uL Hgb (12.0-16.0) g/dl Hct (37.0-47.0) % MCV (80.0-98.0) fL MCH (27.0-33.0) pg MCHC (31.0-35.0) g/dl RDW (11.0-16.0) % Plt Count (160-400) X10*3/uL MPV (9.4-12.3) fL Immature Gran % (Auto) (0.0-0.4) % Neut % (Auto) (45-73) % Lymph % (Auto) (20-40) % [place] % (Auto) (2-11) % Eos % (Auto) (0-4) % Baso % (Auto) (0-2) % Lymph # (Auto) (1.2-4.9) X10*3/uL [place] # (Auto) (0.1-1.2) X10*3/uL Eos # (Auto) (0.0-0.4) X10*3/uL Baso # (Auto) (0.0-0.2) X10*3/uL Abs Immat Gran (auto) (0.00-0.03) X10*3/uL Absolute Neuts (auto) (2.0-8.3) x10*3/uL Absolute Nucleated RBC (0.0-0.012) X10*3/uL Nucleated RBC % (auto) (0.0-0.2) /100WBC PT (10.0-13.1) SEC INR (0.9-1.1) Sodium (135-145) mmol/L Potassium (3.3-5.1) mmol/L Chloride (96-108) mmol/L Carbon Dioxide (22-29) mmol/L Anion Gap (12-20) BUN (9-16) mg/dL Creatinine (0.5-1.4) mg/dL Estim Creat Clear Calc Estimated GFR Random Glucose (60-115) mg/dL Calcium (8.4-10.2) mg/dL Magnesium (1.6-2.6) mg/dL Total Bilirubin (0.0-1.0) mg/dL Direct Bilirubin (0.0-0.5) mg/dL AST (5-31) U/L ALT (0-31) U/L Alkaline Phosphatase (39-117) U/L Troponin I High Sens < 3.5 (<3.5-17.0) ng/L B-Natriuretic Peptide 22 (<100) pg/mL Total Protein (6.5-8.0) g/dL Albumin (3.5-5.0) g/dL Beta HCG, Quant mIU/mL COVID-19 (JAMES) Negative (Negative) COVID-19 Clin Com See Note <Tanvi Vazquez MD - Last Filed: 05/12/22 19:19> Imaging Data Chest x-ray: Radiologist's impression: INDINGS: The patient is slightly rotated limiting assessment of the cardiomediastinal silhouette. Apparent widening of the right lower mediastinum is likely artifactual. No focal airspace opacity, pleural effusion or pneumothorax. No acute osseous abnormalities. The visualized upper abdomen is within normal limits. XR/XR chest 1V IMPRESSION: 1.? No acute cardiopulmonary findings. 2.? Apparent widening of the right lower mediastinum is likely artifactual and related with patient rotation. <Tanvi Vazquez MD - Last Filed: 05/12/22 19:19> Bilateral lower extremity ultrasound: Radiologist's impression: IGHT: There is normal venous compression and respiratory variation and augmented flow. The visualized common femoral vein, superficial femoral vein, profunda femoral vein, popliteal vein, and the trifurcation region shows no evidence of deep venous thrombosis. ? There is no significant popliteal fossa cyst. The peroneal calf veins are not seen. Small benign-appearing lymph node in the right proximal thigh/groin noted measuring 0.7 cm in short axis. LEFT: There is normal venous compression and respiratory variation and augmented flow. The visualized common femoral vein, superficial femoral vein, profunda femoral vein, popliteal vein, and the trifurcation region shows no evidence of deep venous thrombosis. ? There is no significant popliteal fossa cyst. The peroneal calf veins are not seen. If the patient's symptoms persist, followup ultrasound in 5 days 7 days might be of value to exclude proximal propagation from a non-visualized calf vein. US/US venous duplex LE BI IMPRESSION: 1.? No DVT demonstrated in the bilateral lower extremity. <Tanvi Vazquez MD - Last Filed: 05/12/22 19:19> Critical Care Time Critical Care Time Critical Care Time: Yes <Tanvi Vazquez MD - Last Filed: 05/12/22 19:19> Total Critical Care Time: 30 <Tanvi Vazquez MD - Last Filed: 05/12/22 19:19> Attestation: I have personally provided critical care time. Time includes review of lab data, radiology results, discussion with consultants, and monitoring for potential decompensation. Intervention performed as documented. <Tanvi Vazquez MD - Last Filed: 05/12/22 19:19> Discharge Plan Discharge Clinical Impression: Bilateral lower extremity edema, Asthma exacerbation, Hypertension <GILBERTO Wharton - Last Filed: 05/12/22 17:01> Patient Disposition: [facility] <GILBERTO Wharton - Last Filed: 05/12/22 17:01> Transfer Details: [facility] W2 <GILBERTO Wharton - Last Filed: 05/12/22 17:01> [facility] <Tanvi Vazquez MD - Last Filed: 05/12/22 19:19> Prescriptions: No Action furosemide 20 mg tablet 10 mg PO QAM Qty: 30 0RF Hold Instructions: Dose Change Rx Instructions: 1 tablet every a/m PRN for swelling buprenorphine-naloxone [Suboxone] 8-2 mg film 2 film buccal DAILY Rx Instructions: place 1 film on inside of (each) cheek albuterol sulfate 90 mcg/actuation HFA aerosol inhaler 2 puff inhalation QID Qty: 8.5 2RF furosemide 20 mg tablet 20 mg PO QAM PRN (Reason: for swelling) Qty: 30 4RF montelukast 10 mg tablet 10 mg PO DAILY Qty: 30 0RF bupropion HCl 200 mg tablet sustained-release 12 hr 200 mg PO BID Qty: 180 1RF aripiprazole 2 mg tablet 2 mg PO DAILY Qty: 30 1RF prednisone 20 mg tablet 40 mg PO DAILY 4 Days Qty: 8 0RF amoxicillin-pot clavulanate 875-125 mg tablet 1 tab PO BID Qty: 14 0RF prednisone 20 mg tablet 40 mg PO DAILY Qty: 10 0RF cefuroxime axetil 500 mg tablet 500 mg PO BID Qty: 20 0RF buprenorphine HCl 8 mg tablet, sublingual 16 mg sublingual DAILY <GILBERTO Wharton - Last Filed: 05/12/22 17:01>
--- NOTE | 2022-05-12 16:56 | ECG_ITS ---
Test Reason : asthma Blood Pressure : / mmHG Vent. Rate : 100 BPM Atrial Rate : 100 BPM P-R Int : 144 ms QRS Dur : 088 ms QT Int : 380 ms P-R-T Axes : 052 020 060 degrees QTc Int : 490 ms Normal sinus rhythm Nonspecific ST and T wave abnormality Prolonged QT Abnormal ECG No previous ECGs available Referred By: Edith Cotton Electronically Signed By:KEITH PARRY MD
--- OUTSIDE RECORDS SUMMARY | 2022-05-12 17:29 | XMS_ITS | Continuity of Care Document ---
:1990 Author Organization [facility] ic Address [address] [place] [phone]- Care Team Providers Name Role Phone Aj Cavazos MD Primary Care Physician Encounter [facility] [place] Date(s): 02/28/20 - 05/01/[address] [id number] Attending Physician: Not on Staff, Attending Referring Physician: Aj Cavazos MD Allergies, Adverse Reactions, Alerts Substance Reaction Severity Status NKA Active Immunizations Given and Recorded Vaccine Date Status Refusal Reason pneumococcal 23-valent vaccine1 12/19/17 Given Not Given Vaccine Date Status Refusal Reason influenza virus vaccine, inactivated2 09/04/19 Not Given Patient Refuses 1Early/Late Reason: Med Not [id number] Comment: i was just sick, I dont want it Medications AirDuo RespiClick 232 mcg-14 mcg/inh inhalation powder 1, inhalation, Inhalation, 2 times a day, rinse mouth and throat after use, # 1 each, Refills 0, Tot. Refills 0, Maintenance, 03/18/20 17:23:00 EDT, Powder, Route to Pharmacy Electronically, [id number], [facility]/pharmacy #[id number], 15... Start Date: 03/18/20 Stop Date: 04/17/20 Status: Orderedalbuterol CFC free 90 mcg/inh inhalation aerosol 2, puffs, Inhalation, 4 times a day, PRN, # 25 Gm, Refills 0, Tot. Refills 0, Maintenance, 03/18/20 17:24:00 EDT, Aerosol, Route to Pharmacy Electronically, [id number], [facility]/pharmacy #[id number], 155, cm, 03/18/20 16:03:00 EDT, Heig... Start Date: 03/18/20 Status: Orderedalbuterol CFC free 90 mcg/inh inhalation aerosol 1, puffs, Inhalation, Every 4 hours, PRN, # 8 Gm, Refills 0, Maintenance, 03/17/20 16:22:00 EDT, Aerosol Start Date: 03/17/20 Status: OrderedbuPROPion 300 mg/24 hours (XL) oral tablet, extended release 1 tablet = 300 mg, By Mouth, Daily, # 30 tablet, 0 Refills, Maintenance, 03/18/20 17:24:00 EDT, XL Tablet, [facility]/pharmacy #[id number], 155, cm, 03/18/20 16:03:00 EDT, Height, 93.3, kg, 03/17/20 6:29:00 EDT, Dry Weight Start Date: 03/18/20 Stop Date: 04/17/20 Status: OrderedbusPIRone 10 mg oral tablet 10 mg, 1, tablet, By Mouth, 2 times a day, # 60 tablet, Refills 0, Tot. Refills 0, Maintenance, 03/18/20 17:24:00 EDT, [id number], cm, 03/18/20 16:03:00 EDT, Height, 93.3, kg, 03/17/20 6:29:00 EDT, Dry We... Start Date: 03/18/20 Status: Orderedcetirizine 10 mg oral tablet 1 tablet = 10 mg, By Mouth, Daily, # 30 tablet, 0 Refills, Maintenance, 03/18/20 17:24:00 EDT, Tablet, [facility]/pharmacy #[id number], 155, cm, 03/18/20 16:03:00 EDT, Height, 93.3, kg, 03/17/20 6:29:00 EDT, Dry Weight Start Date: 03/18/20 Status: OrderedcloNIDine 0.1 mg oral tablet 0.1 mg, By Mouth, 3 times a day, PRN, # 30 tablet, Refills 0, Tot. Refills 0, Maintenance, Anxiety, 03/18/20 17:21:00 EDT, [id number], cm, 03/18/20 16:03:00 EDT, Height, 93.3, kg, 03/17/20 6:29:00 EDT, . Start Date: 03/18/20 Stop Date: 04/17/20 Status: Orderedfolic acid 1 mg oral tablet 1 mg, 1, tablet, By Mouth, Daily, # 30 tablet, Refills 0, Tot. Refills 0, Maintenance, 03/18/20 17:21:00 EDT, [id number], cm, 03/18/20 16:03:00 EDT, Height, 93.3, kg, 03/17/20 6:29:00 EDT, Dry Weight Start Date: 03/18/20 Status: Orderedmultivitamin Multiple Vitamins oral tablet 1 tablet, By Mouth, Daily, # 30 tablet, 0 Refills, Maintenance, 03/18/20 17:20:00 EDT, Tablet, [id number], 1 tablet By Mouth Daily,x30 days, 155, cm, 03/18/20 16:03:00 EDT, Height, 93.3, kg, 03/17/20 6:29:00 EDT, Dry Weight Start Date: 03/18/20 Stop Date: 04/17/20 Status: OrderedrOPINIRole 1 mg oral tablet = 1 mg, By Mouth, 2 times a day, # 60 tablet, 0 Refills, Maintenance, 03/18/20 17:22:00 EDT, Tablet,[facility]/pharmacy #[id number], 155, cm, 03/18/20 16:03:00 EDT, Height, 93.3, kg, 03/17/20 6:29:00 EDT, Dry Weight Start Date: 03/18/20 Stop Date: 04/17/20 Status: OrderedSingulair 10 mg oral tablet 10 mg, 1, tablet, By Mouth, Daily, # 30 tablet, Refills 0, Tot. Refills 0, Maintenance, 03/18/20 17:23:00 EDT, Route to Pharmacy Electronically, [facility]/pharmacy #[id number], 155, cm, 03/18/20 16:03:00 EDT, Height, 93.3, kg, 03/17/20 6:29:00 EDT, Dry Weight Start Date: 03/18/20 Status: OrderedtraZODone 50 mg oral tablet 50 mg, 1, tablet, By Mouth, Daily at bedtime, PRN, # 30 tablet, Refills 0, Tot. Refills 0, Maintenance, Sleep, 03/18/20 17:22:00 EDT, Route to Pharmacy Electronically, [facility]/pharmacy #[id number], 155, cm, 03/18/20 16:03:00 EDT, Height, 93.3, kg, 03/17/20 6:29... Start Date: 03/18/20 Stop Date: 04/17/20 Status: Ordered Problem List Condition Effective Dates Status Health Status Informant Asthma(Confirmed) Active Social History Social History Type Response Smoking Status Never (less than 100 in life time) entered on: 02/27/20 Sex Female
--- OUTSIDE RECORDS SUMMARY | 2022-05-12 17:29 | XMS_ITS | Continuity of Care Document ---
:1990 Author Organization [facility] Address [address] [place] [id number]- Care Team Providers Name Role Phone Dirk GAYLE, Aj Hall Primary Care Physician [place] [facility] [place] 12/[place] - 02/20/21 [facility] [address] [place] [id number] Attending Physician: Alvarez Curran MD Admitting Physician: Alvarez Curran MD Referring Physician: Trinidad Tafoya DO Allergies, Adverse Reactions, Alerts Substance Reaction Severity Status NKA Active Immunizations Given and Recorded Vaccine Date Status Refusal Reason pneumococcal 23-valent vaccine1 12/19/17 Given Not Given Vaccine Date Status Refusal Reason influenza virus vaccine, inactivated2 09/04/19 Not Given Patient Refuses 1Early/Late Reason: Med Not [id number] Comment: i was just sick, I dont want it Medications AirDuo RespiClick 232 mcg-14 mcg/inh inhalation powder 1, inhalation, Inhalation, 2 times a day, rinse mouth and throat after use, # 1 each, Refills 0, Tot. Refills 0, Maintenance, 03/18/20 17:23:00 EDT, Powder, Route to Pharmacy Electronically, [id number], [facility]/pharmacy #[id number], 15... Start Date: 03/18/20 Stop Date: 04/17/20 Status: Orderedalbuterol CFC free 90 mcg/inh inhalation aerosol 2, puffs, Inhalation, 4 times a day, PRN, # 25 Gm, Refills 0, Tot. Refills 0, Maintenance, 03/18/20 17:24:00 EDT, Aerosol, Route to Pharmacy Electronically, [id number], [facility]/pharmacy #[id number], 155, cm, 03/18/20 16:03:00 EDT, Heig... Start Date: 03/18/20 Status: OrderedbuPROPion 300 mg/24 hours (XL) oral tablet, extended release 1 tablet = 300 mg, By Mouth, Daily, # 30 tablet, 0 Refills, Maintenance, 03/18/20 17:24:00 EDT, XL Tablet, [facility]/pharmacy #[id number], 155, cm, 03/18/20 16:03:00 EDT, Height, 93.3, kg, 03/17/20 6:29:00 EDT, Dry Weight Start Date: 03/18/20 Stop Date: 04/17/20 Status: Orderedcetirizine 10 mg oral tablet 1 tablet = 10 mg, By Mouth, Daily, # 30 tablet, 0 Refills, Maintenance, 03/18/20 17:24:00 EDT, Tablet, [facility]/pharmacy #[id number], 155, cm, 03/18/20 16:03:00 EDT, Height, 93.3, kg, 03/17/20 6:29:00 EDT, Dry Weight Start Date: 03/18/20 Status: OrderedColace sodium 100 mg oral capsule 100 mg, 1, capsule, By Mouth, 2 times a day, PRN, # 60 capsule, Refills 0, Tot. Refills 0, Maintenance, for constipation, 01/11/21 8:47:00 EDT, Route to Pharmacy Electronically, [facility]/pharmacy #[id number], Partial fill upon patient request if the prescription... Start Date: 01/11/21 Stop Date: 02/12/21 Status: Orderedfolic acid 1 mg oral tablet 1 mg, 1, tablet, By Mouth, Daily, # 30 tablet, Refills 0, Tot. Refills 0, Maintenance, 03/18/20 17:21:00 EDT, Route to Pharmacy Electronically, [facility]/pharmacy #[id number], 155, cm, 03/18/20 16:03:00 EDT, Height, 93.3, kg, 03/17/20 6:29:00 EDT, Dry Weight Start Date: 03/18/20 Status: Orderedmultivitamin Multiple Vitamins oral tablet 1 tablet, By Mouth, Daily, # 30 tablet, 0 Refills, Maintenance, 03/18/20 17:20:00 EDT, Tablet, [facility]/pharmacy #[id number], 1 tablet By Mouth Daily,x30 days, 155, cm, 03/18/20 16:03:00 EDT, Height, 93.3, kg, 03/17/20 6:29:00 EDT, Dry Weight Start Date: 03/18/20 Stop Date: 04/17/20 Status: OrderedSingulair 10 mg oral tablet 10 mg, 1, tablet, By Mouth, Daily, # 30 tablet, Refills 0, Tot. Refills 0, Maintenance, 03/18/20 17:23:00 EDT, Route to Pharmacy Electronically, [facility]/pharmacy #[id number], 155, cm, 03/18/20 16:03:00 EDT, Height, 93.3, kg, 03/17/20 6:29:00 EDT, Dry Weight Start Date: 03/18/20 Status: OrderedSubutex = 8 mg, Sublingual, 2 times a day, 0 Refills, Maintenance, 12/14/20 16:23:00 EDT, Partial fill upon patient request if the prescription is for a schedule II opioid drug. Start Date: 12/14/20 Status: Ordered Problem List Condition Effective Dates Status Health Status Informant Asthma(Confirmed) Active Anxiety and depression(Confirmed) Active Obesity during (Confirmed) Active Opioid use disorder(Confirmed)1, 2 Active Rh alloimmunization, maternal, Active antepartum (anti-c)(Confirmed) Seizure disorder(Confirmed) Active Hepatitis C(Confirmed) Active 1now on [id number] methadone Social History Social History Type Response Smoking Status Former smoker, quit more bridgette n 30 days ago; Number of years: 0.7; Started at age: 29; Stopped at age: 30; entered on: 09/01/20 Sex
--- OUTSIDE RECORDS SUMMARY | 2022-05-12 17:29 | XMS_ITS | Continuity of Care Document ---
:1990 Author Organization [facility] Address [address] [place] [phone]- Care Team Providers Name Role Phone Dirk GAYLE, Aj Hall Primary Care Physician Encounter [facility] Date(s): 11/18/20 - 12/18/[facility] [address] [place] [id number] Allergies, Adverse Reactions, Alerts Substance Reaction Severity Status NKA Active Immunizations Given and Recorded Vaccine Date Status Refusal Reason pneumococcal 23-valent vaccine1 12/19/17 Given Not Given Vaccine Date Status Refusal Reason influenza virus vaccine, inactivated2 09/04/19 Not Given Patient Refuses 1Early/Late Reason: Med Not [id number] Comment: i was just sick, I dont want it Medications AirDuo RespiClick 232 mcg-14 mcg/inh inhalation powder 1, inhalation, Inhalation, 2 times a day, rinse mouth and throat after use, # 1 each, Refills 0, Tot. Refills 0, Maintenance, 03/18/20 17:23:00 EDT, Powder, Route to Pharmacy Electronically, [id number], [facility]/pharmacy #[id number], 15... Start Date: 03/18/20 Stop Date: 04/17/20 Status: Orderedalbuterol CFC free 90 mcg/inh inhalation aerosol 2, puffs, Inhalation, 4 times a day, PRN, # 25 Gm, Refills 0, Tot. Refills 0, Maintenance, 03/18/20 17:24:00 EDT, Aerosol, Route to Pharmacy Electronically, [id number], [facility]/pharmacy #[id number], 155, cm, 03/18/20 16:03:00 EDT, Heig... Start Date: 03/18/20 Status: OrderedbuPROPion 300 mg/24 hours (XL) oral tablet, extended release 1 tablet = 300 mg, By Mouth, Daily, # 30 tablet, 0 Refills, Maintenance, 03/18/20 17:24:00 EDT, XL Tablet, [facility]/pharmacy #[id number], 155, cm, 03/18/20 16:03:00 EDT, Height, 93.3, kg, 03/17/20 6:29:00 EDT, Dry Weight Start Date: 03/18/20 Stop Date: 04/17/20 Status: Orderedcetirizine 10 mg oral tablet 1 tablet = 10 mg, By Mouth, Daily, # 30 tablet, 0 Refills, Maintenance, 03/18/20 17:24:00 EDT, Tablet, [facility]/pharmacy #[id number], 155, cm, 03/18/20 16:03:00 EDT, Height, 93.3, kg, 03/17/20 6:29:00 EDT, Dry Weight Start Date: 03/18/20 Status: Orderedfolic acid 1 mg oral tablet 1 mg, 1, tablet, By Mouth, Daily, # 30 tablet, Refills 0, Tot. Refills 0, Maintenance, 03/18/20 17:21:00 EDT, Route to Pharmacy Electronically, [facility]/pharmacy #[id number], 155, cm, 03/18/20 16:03:00 EDT, Height, 93.3, kg, 03/17/20 6:29:00 EDT, Dry Weight Start Date: 03/18/20 Status: Orderedmultivitamin Multiple Vitamins oral tablet 1 tablet, By Mouth, Daily, # 30 tablet, 0 Refills, Maintenance, 03/18/20 17:20:00 EDT, Tablet, [facility]/pharmacy #[id number], 1 tablet By Mouth Daily,x30 days, 155, cm, 03/18/20 16:03:00 EDT, Height, 93.3, kg, 03/17/20 6:29:00 EDT, Dry Weight Start Date: 03/18/20 Stop Date: 04/17/20 Status: OrderedSingulair 10 mg oral tablet 10 mg, 1, tablet, By Mouth, Daily, # 30 tablet, Refills 0, Tot. Refills 0, Maintenance, 03/18/20 17:23:00 EDT, Route to Pharmacy Electronically, [facility]/pharmacy #[id number], 155, cm, 03/18/20 16:03:00 EDT, [...] disorder(Confirmed) Active Hepatitis C(Confirmed) Active 1now on [id number] methadone Social History Social History Type Response Smoking Status Former smoker, quit more bridgette n 30 days ago; Number of years: 0.7; Started at age: 29; Stopped at age: 30; entered on: 09/01/20 Sex
--- OUTSIDE RECORDS SUMMARY | 2022-05-12 17:29 | XMS_ITS | Continuity of Care Document ---
:1990 Author Organization [facility] Address [address] [place] [id number]- Care Team Providers Name Role Phone Dirk GAYLE, Aj Hall Primary Care Physician Encounter [facility] [place] Date(s): 03/17/20 - 03/18/[address] [address]- [facility] [phone] Discharge Disposition: A-D/C Home Attending Physician: Ramonita Segura MD Admitting Physician: Tito Ruiz MD Referring Physician: Not on Staff, Referring MD Allergies, Adverse Reactions, Alerts Substance Reaction Severity Status NKA Active Immunizations Given and Recorded Vaccine Date Status Refusal Reason pneumococcal 23-valent vaccine1 12/19/17 Given Not Given Vaccine Date Status Refusal Reason influenza virus vaccine, inactivated2 09/04/19 Not Given Patient Refuses 1Early/Late Reason: Med Not [id number] Comment: i was just sick, I dont want it Medications AirDuo RespiClick 232 mcg-14 mcg/inh inhalation powder 1, inhalation, Inhalation, 2 times a day, rinse mouth and throat after use, # 1 each, Refills 0, Tot. Refills 0, Maintenance, 03/18/20 17:23:00 EDT, Powder, Route to Pharmacy Electronically, [id number], [facility]/pharmacy #[id number], 15... Start Date: 03/18/20 Stop Date: 04/17/20 Status: Orderedalbuterol CFC free 90 mcg/inh inhalation aerosol 2, puffs, Inhalation, 4 times a day, PRN, # 25 Gm, Refills 0, Tot. Refills 0, Maintenance, 03/18/20 17:24:00 EDT, Aerosol, Route to Pharmacy Electronically, [id number], [facility]/pharmacy #[id number], 155, cm, 03/18/20 16:03:00 EDT, [...] Refills, Maintenance, 03/18/20 17:24:00 EDT, XL Tablet, [facility]/pharmacy #[id number], 155, cm, 03/18/20 16:03:00 EDT, Height, 93.3, kg, 03/17/20 6:29:00 EDT, Dry Weight Start Date: 03/18/20 Stop Date: 04/17/20 Status: OrderedbusPIRone 10 mg oral tablet 10 mg, 1, tablet, By Mouth, 2 times a day, # 60 tablet, Refills 0, Tot. Refills 0, Maintenance, 03/18/20 17:24:00 EDT, Route to Pharmacy Electronically, [facility]/pharmacy #[id number], 155, cm, 03/18/20 16:03:00 EDT, Height, 93.3, kg, 03/17/20 6:29:00 EDT, Dry We... Start Date: 03/18/20 Status: Orderedcetirizine 10 mg oral tablet 1 tablet = 10 mg, By Mouth, Daily, # 30 tablet, 0 Refills, Maintenance, 03/18/20 17:24:00 EDT, Tablet, [facility]/pharmacy #[id number], 155, cm, 03/18/20 16:03:00 EDT, Height, 93.3, kg, 03/17/20 6:29:00 EDT, Dry Weight Start Date: 03/18/20 Status: OrderedcloNIDine 0.1 mg oral tablet 0.1 mg, By Mouth, 3 times a day, PRN, # 30 tablet, Refills 0, Tot. Refills 0, Maintenance, Anxiety, 03/18/20 17:21:00 EDT, [id number], cm, 03/18/20 16:03:00 EDT, Height, 93.3, kg, 03/17/20 6:29:00 EDT, . Start Date: 03/18/20 Stop Date: 04/17/20 Status: Orderedfolic acid 1 mg oral tablet 1 mg, 1, tablet, By Mouth, Daily, # 30 tablet, Refills 0, Tot. Refills 0, Maintenance, 03/18/20 17:21:00 EDT, [id number], cm, 03/18/20 16:03:00 EDT, Height, 93.3, kg, 03/17/20 6:29:00 EDT, Dry Weight Start Date: 03/18/20 Status: Orderedmultivitamin Multiple Vitamins oral tablet 1 tablet, By Mouth, Daily, # 30 tablet, 0 Refills, Maintenance, 03/18/20 17:20:00 EDT, Tablet, [id number], 1 tablet By Mouth Daily,x30 days, 155, cm, 03/18/20 16:03:00 EDT, Height, 93.3, kg, 03/17/20 6:29:00 EDT, Dry Weight Start Date: 03/18/20 Stop Date: 04/17/20 Status: OrderedrOPINIRole 1 mg oral tablet = 1 mg, By Mouth, 2 times a day, # 60 tablet, 0 Refills, Maintenance, 03/18/20 17:22:00 EDT, Tablet,[id number], 155, cm, 03/18/20 16:03:00 EDT, Height, 93.3, kg, 03/17/20 6:29:00 EDT, Dry Weight Start Date: 03/18/20 Stop Date: 04/17/20 Status: OrderedSingulair 10 mg oral tablet 10 mg, 1, tablet, By Mouth, Daily, # 30 tablet, Refills 0, Tot. Refills 0, Maintenance, 03/18/20 17:23:00 EDT, Route to Pharmacy Electronically, [facility]/pharmacy #[id number], 155, cm, 03/18/20 16:03:00 EDT, Height, 93.3, kg, 03/17/20 6:29:00 EDT, Dry Weight Start Date: 03/18/20 Status: OrderedtraZODone 50 mg oral tablet 50 mg, 1, tablet, By Mouth, Daily at bedtime, PRN, # 30 tablet, Refills 0, Tot. Refills 0, Maintenance, Sleep, 03/18/20 17:22:00 EDT, Route to Pharmacy Electronically, [facility]/pharmacy #[id number], 155, cm, 03/18/20 16:03:00 EDT, Height, 93.3, kg, 03/17/20 6:29... Start Date: 03/18/20 Stop Date: 04/17/20 Status: Ordered Problem List Condition Effective Dates Status Health Status Informant Asthma(Confirmed) Active Results Orders for Microbiology Reports Name Date Blood Culture 03/17/20 Blood Culture #2 03/17/20 Microbiology Reports TEST:Blood Culture STATUS:Unauthenticated BODY SITE: SOURCE:Blood COLLECTED DATE/TIME:03/17/20 7:55 AMBlood Culture SPECIMEN DESCRIPTION : BLOOD LAC SPECIAL REQUESTS : NONE CULTURE : NO GROWTH AFTER 24 HOURS REPORT STATUS : PRELIMINARY REPORT TEST:Blood Culture, Second Order STATUS:Unauthenticated BODY SITE: SOURCE:Blood COLLECTED DATE/TIME:03/17/20 7:55 AMBlood Culture, Second Order SPECIMEN DESCRIPTION : BLOOD LAC SPECIAL REQUESTS : NONE CULTURE : NO GROWTH AFTER 24 HOURS REPORT STATUS : PRELIMINARY REPORT Radiology Reports Exam Date Time Procedure Performing Provider Status 03/17/20 10:20 AM Chest Portable Rosa Casillas ([facility]) Notes:(Chest Portable) Reason For Exam: FeverRESULT: Chest Portable Chest Portable Reason: Fever; Clinical Question(s): Pneumonia COMPARISON: 02/13/2019. FINDINGS: LINES AND TUBES: None. LUNGS AND PLEURA: The patient is rotated to the right. There is minimal atelectasis at the lung bases. No consolidative opacity or volume loss. No pleural effusion. No pneumothorax. HEART, MEDIASTINUM AND MYRA: Heart is normal in size. Normal mediastinal and hilar contour. BONES AND SOFT TISSUES: No acute abnormality. IMPRESSION: Study limited slightly by positioning. No acute abnormality. WSN: [id number] Ordering Physician: Tito Ruiz Dictated By: Mynor Cesar MD Dictated Date/Time: 03/17/20 10:33 a Reviewed By: Mynor Cesar MD Signed By: Mynor Cesar MD Signed Date/Time: 03/17/20 10:33 am Transcribed By: BOO Transcribed Date/Time: 03/17/20 10:30 am Vital Signs Most recent to oldest 1 2 3 [Reference Range]: Height 155 cm 155 cm 155 cm (03/18/20 3:26 PM) (03/18/20 11:09 AM) (03/18/20 7: 24 AM) Weight 91.1 kg 90.1 kg 93.3 kg (03/18/20 4:52 AM) (03/17/20 3:22 PM) (03/17/20 6:4 5 AM) Oxygen Saturation [94-100 100 % 97 % 96 % %] (03/18/20 3:26 PM) (03/18/20 11:09 AM) (03/18/20 7: 24 AM) Pulse Rate [55-90 bpm] 83 bpm 73 bpm 73 bpm (03/18/20 5:58 PM) (03/18/20 4:21 PM) (03/18/20 3:2 6 PM) Body Mass Index 37.5 38.83 34.13 [18.5-24.99] *>HHI* *>HHI* *>HHI* (03/17/20 3:22 PM) (03/17/20 6:29 AM) (03/17/20 2:3 2 AM) Blood Pressure 157/95 mm Hg 157/95 mm Hg 157/95 mm Hg [90-138/55-84 mm Hg] *H* *H* *H* (03/18/20 5:58 PM) (03/18/20 4:21 PM) (03/18/20 3:2 6 PM) Respiratory Rate [16-30 20 br/min 20 br/min 18 br/mi n br/min] (03/18/20 5:58 PM) (03/18/20 4:21 PM) (03/18/20 3:2 6 PM) Temperature [96.8-100.4 98.5 DegF 97.3 DegF 97.4 Deg F DegF] (03/18/20 3:26 PM) (03/18/20 11:09 AM) (03/18/20 7: 24 AM) Mode of Delivery (Oxygen) Room air Room air Room a ir (03/18/20 3:26 PM) (03/18/20 11:09 AM) (03/18/20 7: 24 AM) Blood pressure sites Arm, left Arm, right Arm, left (03/18/20 3:26 PM) (03/18/20 11:09 AM) (03/18/20 7: 24 AM) Temperature Route Oral Oral Oral (03/18/20 3:26 PM) (03/18/20 11:09 AM) (03/18/20 7: 24 AM) Dry Weight 93.3 kg 82 kg 82 kg (03/17/20 6:29 AM) (03/17/20 2:32 AM) (03/16/20 7:2 1 PM) Weight Obtained Via Bed scale Bed scale Patient/fami ly stated (03/18/20 4:52 AM) (03/17/20 3:22 PM) (03/16/20 6:2 7 PM) Social History Social History Type Response Smoking Status Never (less than 100 in life time) entered on: 02/27/20 Sex Female
--- OUTSIDE RECORDS SUMMARY | 2022-05-12 17:29 | XMS_ITS | Continuity of Care Document ---
:1990 Author Organization [facility] Address [address] [place] [id number]- Care Team Providers Name Role Phone Dirk GAYLE, Aj Hall Primary Care Physician [facility]): [facility] - 12/[facility] [address] [place] [id number] Allergies, Adverse Reactions, Alerts Substance Reaction Severity Status NKA Active Immunizations Given and Recorded Vaccine Date Status Refusal Reason pneumococcal 23-valent vaccine1 12/19/17 Given Not Given Vaccine Date Status Refusal Reason influenza virus vaccine, inactivated2 09/04/19 Not Given Patient Refuses 1Early/Late Reason: Med Not [id number] Comment: i was just sick, I dont want it Medications AirDuo RespiClick 232 mcg-14 mcg/inh inhalation powder 1, inhalation, Inhalation, 2 times a day, rinse mouth and throat after use, # 1 each, Refills 0, Tot. Refills 0, Maintenance, 03/18/20 17:23:00 EDT, Powder, Route to Pharmacy Electronically, [id number], [facility]/pharmacy #[id number], 15... Start Date: 03/18/20 Stop Date: 04/17/20 Status: Orderedalbuterol CFC free 90 mcg/inh inhalation aerosol 2, puffs, Inhalation, 4 times a day, PRN, # 25 Gm, Refills 0, Tot. Refills 0, Maintenance, 03/18/20 17:24:00 EDT, Aerosol, Route to Pharmacy Electronically, [id number], [facility]/pharmacy #[id number], 155, cm, 03/18/20 16:03:00 EDT, Heig... Start Date: 03/18/20 Status: OrderedbuPROPion 300 mg/24 hours (XL) oral tablet, extended release 1 tablet = 300 mg, By Mouth, Daily, # 30 tablet, 0 Refills, Maintenance, 03/18/20 17:24:00 EDT, XL Tablet, [facility]/pharmacy #[id number], 155, cm, 03/18/20 16:03:00 EDT, Height, 93.3, kg, 03/17/20 6:29:00 EDT, Dry Weight Start Date: 03/18/20 Stop Date: 04/17/20 Status: Orderedcetirizine 10 mg oral tablet 1 tablet = 10 mg, By Mouth, Daily, # 30 tablet, 0 Refills, Maintenance, 03/18/20 17:24:00 EDT, Tablet, [facility]/pharmacy #[id number], 155, cm, 03/18/20 16:03:00 EDT, Height, 93.3, kg, 03/17/20 6:29:00 EDT, Dry Weight Start Date: 03/18/20 Status: Orderedfolic acid 1 mg oral tablet 1 mg, 1, tablet, By Mouth, Daily, # 30 tablet, Refills 0, Tot. Refills 0, Maintenance, 03/18/20 17:21:00 EDT, Route to Pharmacy Electronically, [facility]/pharmacy #[id number], 155, cm, 03/18/20 16:03:00 EDT, Height, 93.3, kg, 03/17/20 6:29:00 EDT, Dry Weight Start Date: 03/18/20 Status: Orderedmultivitamin Multiple Vitamins oral tablet 1 tablet, By Mouth, Daily, # 30 tablet, 0 Refills, Maintenance, 03/18/20 17:20:00 EDT, Tablet, [facility]/pharmacy #[id number], 1 tablet By Mouth Daily,x30 days, 155, cm, 03/18/20 16:03:00 EDT, Height, 93.3, kg, 03/17/20 6:29:00 EDT, Dry Weight Start Date: 03/18/20 Stop Date: 04/17/20 Status: OrderedSingulair 10 mg oral tablet 10 mg, 1, tablet, By Mouth, Daily, # 30 tablet, Refills 0, Tot. Refills 0, Maintenance, 03/18/20 17:23:00 EDT, Route to Pharmacy Electronically, [facility]/pharmacy #[id number], 155, cm, 03/18/20 16:03:00 [...] disorder(Confirmed) Active Hepatitis C(Confirmed) Active 1now on [id number] methadone Social History Social History Type Response Smoking Status Former smoker, quit more bridgette n 30 days ago; Number of years: 0.7; Started at age: 29; Stopped at age: 30; entered on: 09/01/20 Sex
--- OUTSIDE RECORDS SUMMARY | 2022-05-12 17:29 | XMS_ITS | Continuity of Care Document ---
:1990 Author Organization [facility] Address [address] [place] [id number]- Care Team Providers Name Role Phone Not on Staff, PCP Primary Care Physician Unavailable [facility] Date[facility]s): 11/22/19 - 11/23/[address] [address]- [facility] Encounter Diagnosis Facial hematoma (Final) - 11/23/19 Periorbital hematoma of right eye (Final) - 11/23/19 Discharge Disposition: A-D/C Home Attending Physician: Fernandez Castillo MD Admitting Physician: Fernandez Castillo MD Referring Physician: Not on Staff, Referring MD Allergies, Adverse Reactions, Alerts Substance Reaction Severity Status NKA Active Immunizations Given and Recorded Vaccine Date Status Refusal Reason pneumococcal 23-valent vaccine1 12/19/17 Given Not Given Vaccine Date Status Refusal Reason influenza virus vaccine, inactivated2 09/04/19 Not Given Patient Refuses 1Early/Late Reason: Med Not [id number] Comment: i was just sick, I dont want it Medications albuterol CFC free 90 mcg/inh inhalation aerosol 2, puffs, Inhalation, 4 times a day, PRN, # 25 Gm, Refills 0, Tot. Refills 0, Maintenance, 02/13/19 16:01:47 EDT, Aerosol, Print Requisition Start Date: 02/13/19 Status: OrderedbuPROPion 200 mg/12 hours (SR) oral tablet, extended release 1 tablet = 200 mg, By Mouth, 2 times a day, Maintenance, 09/03/19 19:09:00 EDT, ER Tablet Start Date: 09/03/19 Status: OrderedbusPIRone 10 mg oral tablet 10 mg, 1, tablet, By Mouth, 2 times a day, Maintenance, 09/03/19 19:10:00 EDT Start Date: 09/03/19 Status: Orderedgabapentin 300 mg oral capsule 300 mg, 1, capsule, By Mouth, 3 times a day, Maintenance, 09/03/19 19:01:00 EDT Start Date: 09/03/19 Status: OrderedMethadone = 50 mg, By Mouth, Daily, 0 Refills, Maintenance, 09/03/19 19:11:00 EDT, Partial fill upon patient request Start Date: 09/03/19 Status: Ordered Problem List Condition Effective Dates Status Health Status Informant Asthma(Confirmed) Active Vital Signs Most recent to oldest 1 2 3 [Reference Range]: Oxygen Saturation [94-100 %] 99 % 98 % 99 % (11/23/19 6:09 AM) (11/23/19 2:58 AM) (11/22/19 11: 19 PM) Pulse Rate [55-90 bpm] 82 bpm 93 bpm 109 bpm (11/23/19 6:09 AM) *H* *H* (11/23/19 2:58 AM) (11/22/19 11: PM) Blood Pressure [90-138/55-84 153/81 mm Hg 152/79 mm Hg 134 /92 mm Hg mm Hg] *H* *H* (11/22/19 11:19 P M) (11/23/19 6:09 AM) (11/23/19 2:58 AM) Respiratory Rate [16-30 17 br/min 14 br/min 20 br/mi n br/min] (11/23/19 6:09 AM) *L* (11/22/19 11:19 PM) (11/23/19 2:58 AM) Temperature [96.8-100.4 DegF] 97.7 DegF 98.4 DegF (11/23/19 6:09 AM) (11/22/19 11:19 PM) Mode of Delivery (Oxygen) Room air Room air Room a ir (11/23/19 6:09 AM) (11/23/19 2:58 AM) (11/22/19 11: 19 PM) Blood pressure sites Arm, right Arm, left Arm, right (11/23/19 6:09 AM) (11/23/19 2:58 AM) (11/22/19 11: 19 PM) Temperature Route Oral Oral (11/23/19 6:09 AM) (11/22/19 11:19 PM) Social History Social History Type Response Smoking Status Never (less than 100 in life time) entered on: 02/13/19 Sex Female
--- OUTSIDE RECORDS SUMMARY | 2022-05-12 17:29 | XMS_ITS | Continuity of Care Document ---
:1990 Author Organization [facility] Address [address] [place] [phone]- Care Team Providers Name Role Phone Dirk GAYLE, Aj Hall Primary Care Physician [facility] 09[facility] - 10/01/[facility] [address] [place] [id number] Attending Physician: Viola Crabtree Admitting Physician: Viola Crabtree Referring Physician: AdmtrViola Allergies, Adverse Reactions, Alerts Substance Reaction Severity Status NKA Active Immunizations Given and Recorded Vaccine Date Status Refusal Reason pneumococcal 23-valent vaccine1 12/19/17 Given Not Given Vaccine Date Status Refusal Reason influenza virus vaccine, inactivated2 09/04/19 Not Given Patient Refuses 1Early/Late Reason: Med Not [id number] Comment: i was just sick, I dont want it Medications AirDuo RespiClick 232 mcg-14 mcg/inh inhalation powder 1, inhalation, Inhalation, 2 times a day, rinse mouth and throat after use, # 1 each, Refills 0, Tot. Refills 0, Maintenance, 03/18/20 17:23:00 EDT, Powder, Route to Pharmacy Electronically, [id number], [facility]/pharmacy #[id number], 15... Start Date: 03/18/20 Stop Date: 04/17/20 Status: Orderedalbuterol CFC free 90 mcg/inh inhalation aerosol 2, puffs, Inhalation, 4 times a day, PRN, # 25 Gm, Refills 0, Tot. Refills 0, Maintenance, 03/18/20 17:24:00 EDT, Aerosol, Route to Pharmacy Electronically, [id number], [facility]/pharmacy #[id number], 155, cm, 03/18/20 16:03:00 EDT, Amadou Start Date: 03/18/20 Status: Orderedalbuterol CFC free 90 mcg/inh inhalation aerosol 1, puffs, Inhalation, Every 4 hours, PRN, # 8 Gm, Refills 0, Maintenance, 03/17/20 16:22:00 EDT, Aerosol Start Date: 03/17/20 Status: OrderedbuPROPion 300 mg/24 hours (XL) oral tablet, extended release 1 tablet = 300 mg, By Mouth, Daily, # 30 tablet, 0 Refills, Maintenance, 03/18/20 17:24:00 EDT, XL Tablet, [facility]/pharmacy #[id number], 155, cm, 03/18/20 16:03:00 EDT, Height, 93.3, kg, 03/17/20 6:29:00 EDT, Dry Weight Start Date: 03/18/20 Stop Date: 04/17/20 Status: Orderedcetirizine 10 mg oral tablet 1 tablet = 10 mg, By Mouth, Daily, # 30 tablet, 0 Refills, Maintenance, 03/18/20 17:24:00 EDT, Tablet, [facility]/pharmacy #[id number], 155, cm, 03/18/20 16:03:00 EDT, Height, 93.3, kg, 03/17/20 6:29:00 EDT, Dry Weight Start Date: 03/18/20 Status: OrderedcloNIDine 0.1 mg oral tablet 0.1 mg, By Mouth, 3 times a day, PRN, # 30 tablet, Refills 0, Tot. Refills 0, Maintenance, Anxiety, 03/18/20 17:21:00 EDT, Route to Pharmacy Electronically, [facility]/pharmacy #[id number], 155, cm, 03/18/20 16:03:00 EDT, Height, 93.3, kg, 03/17/20 6:29:00 EDT, Start Date: 03/18/20 Stop Date: 04/17/20 Status: Orderedfolic acid 1 mg oral tablet 1 mg, 1, tablet, By Mouth, Daily, # 30 tablet, Refills 0, Tot. Refills 0, Maintenance, 03/18/20 17:21:00 EDT, Route to Pharmacy Electronically, [facility]/pharmacy #[id number], 155, cm, 03/18/20 16:03:00 EDT, Height, 93.3, kg, 03/17/20 6:29:00 EDT, Dry Weight Start Date: 03/18/20 Status: Orderedmultivitamin Multiple Vitamins oral tablet 1 tablet, By Mouth, Daily, # 30 tablet, 0 Refills, Maintenance, 03/18/20 17:20:00 EDT, Tablet, [facility]/pharmacy #[id number], 1 tablet By Mouth Daily,x30 days, 155, cm, 03/18/20 16:03:00 EDT, Height, 93.3, kg, 03/17/20 6:29:00 EDT, Dry Weight Start Date: 03/18/20 Stop Date: 04/17/20 Status: OrderedSingulair 10 mg oral tablet 10 mg, 1, tablet, By Mouth, Daily, # 30 tablet, Refills 0, Tot. Refills 0, Maintenance, 03/18/20 17:23:00 EDT, Route to Pharmacy Electronically, [facility]/pharmacy #[id number], 155, cm, 03/18/20 16:03:00 EDT, Height, 93.3, kg, 03/17/20 6:29:00 EDT, Dry Weight Start Date: 03/18/20 Status: Ordered Problem List Condition Effective Dates Status Health Status Informant Asthma(Confirmed) Active Anxiety and depression(Confirmed) Active Obesity during (Confirmed) Active Opioid use disorder(Confirmed) Active Rh alloimmunization, maternal, Active antepartum (anti-c)(Confirmed) Seizure disorder(Confirmed) Active Hepatitis C(Confirmed) Active Social History Social History Type Response Smoking Status Former smoker, quit more bridgette n 30 days ago; Number of years: 0.7; Started at age: 29; Stopped at age: 30; entered on: 09/01/20 Sex
--- OUTSIDE RECORDS SUMMARY | 2022-05-12 17:29 | XMS_ITS | Continuity of Care Document ---
:1990 Author Organization [facility] Address [address] [place] [phone]- Care Team Providers Name Role Phone Dirk GAYLE, Aj Hall Primary Care Physician [facility] 10[facility]20 - 11/20/20 [facility] [address] [place] [id number] Attending Physician: Viola Crabtree Admitting Physician: AdmViola sow Referring Physician: Admtr, Viola Allergies, Adverse Reactions, Alerts Substance Reaction Severity Status NKA Active Immunizations Given and Recorded Vaccine Date Status Refusal Reason pneumococcal 23-valent vaccine1 12/19/17 Given Not Given Vaccine Date Status Refusal Reason influenza virus vaccine, inactivated2 09/04/19 Not Given Patient Refuses 1Early/Late Reason: Med Not [id number] Comment: i was just sick, I dont want it Medications AirDuo RespiClick 232 mcg-14 mcg/inh inhalation powder 1, inhalation, Inhalation, 2 times a day, rinse mouth and throat after use, # 1 each, Refills 0, Tot. Refills 0, Maintenance, 03/18/20 17:23:00 EDT, Powder, Route to Pharmacy Electronically, [id number], [facility]/pharmacy #[id number], 15... Start Date: 03/18/20 Stop Date: 04/17/20 Status: Orderedalbuterol CFC free 90 mcg/inh inhalation aerosol 2, puffs, Inhalation, 4 times a day, PRN, # 25 Gm, Refills 0, Tot. Refills 0, Maintenance, 03/18/20 17:24:00 EDT, Aerosol, Route to Pharmacy Electronically, [id number], [facility]/pharmacy #[id number], 155, cm, 03/18/20 16:03:00 EDT, Amadou [...] Refills, Maintenance, 03/18/20 17:24:00 EDT, XL Tablet, [facility]/pharmacy #[id number], 155, cm, 03/18/20 16:03:00 EDT, Height, 93.3, kg, 03/17/20 6:29:00 EDT, Dry Weight Start Date: 03/18/20 Stop Date: 04/17/20 Status: Orderedcetirizine 10 mg oral tablet 1 tablet = 10 mg, By Mouth, Daily, # 30 tablet, 0 Refills, Maintenance, 03/18/20 17:24:00 EDT, Tablet, [facility]/pharmacy #[id number], 155, cm, 03/18/20 16:03:00 EDT, Height, 93.3, kg, 03/17/20 6:29:00 EDT, Dry Weight Start Date: 03/18/20 Status: OrderedcloNIDine 0.1 mg oral tablet 0.1 mg, By Mouth, 3 times a day, PRN, # 30 tablet, Refills 0, Tot. Refills 0, Maintenance, Anxiety, 03/18/20 17:21:00 EDT, Route to Pharmacy Electronically, [facility]/pharmacy #[id number], 155, cm, 03/18/20 16:03:00 EDT, Height, 93.3, kg, 03/17/20 6:29:00 EDT, Start Date: 03/18/20 Stop Date: 04/17/20 Status: Orderedfolic acid 1 mg oral tablet 1 mg, 1, tablet, By Mouth, Daily, # 30 tablet, Refills 0, Tot. Refills 0, Maintenance, 03/18/20 17:21:00 EDT, Route to Pharmacy Electronically, [facility]/pharmacy #[id number], 155, cm, 03/18/20 16:03:00 EDT, Height, 93.3, kg, 03/17/20 6:29:00 EDT, Dry Weight Start Date: 03/18/20 Status: Orderedmultivitamin Multiple Vitamins oral tablet 1 tablet, By Mouth, Daily, # 30 tablet, 0 Refills, Maintenance, 03/18/20 17:20:00 EDT, Tablet, [facility]/pharmacy #[id number], 1 tablet By Mouth Daily,x30 days, 155, cm, 03/18/20 16:03:00 EDT, Height, 93.3, kg, 03/17/20 6:29:00 EDT, Dry Weight Start Date: 03/18/20 Stop Date: 04/17/20 Status: OrderedSingulair 10 mg oral tablet 10 mg, 1, tablet, By Mouth, Daily, # 30 tablet, Refills 0, Tot. Refills 0, Maintenance, 03/18/20 17:23:00 EDT, Route to Pharmacy Electronically, [facility]/pharmacy #[id number], 155, cm, 03/18/20 16:03:00 EDT, Height, 93.3, kg, 03/17/20 6:29:00 EDT, Dry Weight Start Date: 03/18/20 Status: Ordered Problem List Condition Effective Dates Status Health Status Informant Asthma(Confirmed) Active Anxiety and depression(Confirmed) Active Obesity during (Confirmed) Active Opioid use disorder(Confirmed)1, 2 Active Rh alloimmunization, maternal, Active antepartum (anti-c)(Confirmed) Seizure disorder(Confirmed) Active Hepatitis C(Confirmed) Active 1now on [id number] methadone Social History Social History Type Response Smoking Status Former smoker, quit more bridgette n 30 days ago; Number of years: 0.7; Started at age: 29; Stopped at age: 30; entered on: 09/01/20 Sex
--- OUTSIDE RECORDS SUMMARY | 2022-05-12 17:29 | XMS_ITS | Continuity of Care Document ---
:1990 Author Organization [facility] Address [address] [place] [id number]- Care Team Providers Name Role Phone Dirk GAYLE, Aj Hall Primary Care Physician [facility]): 01[facility]21 - 02/03/21 [facility] [address] [place] [id number]- Attending Physician: Viola Crabtree Admitting Physician: AdmtrViola Referring Physician: AdmtrViola Allergies, Adverse Reactions, Alerts Substance Reaction Severity Status NKA Active Immunizations Given and Recorded Vaccine Date Status Refusal Reason pneumococcal 23-valent vaccine1 12/19/17 Given Not Given Vaccine Date Status Refusal Reason influenza virus vaccine, inactivated2 09/04/19 Not Given Patient Refuses 1Early/Late Reason: Med Not [id number] Comment: i was just sick, I dont want it Medications AirDuo RespiClick 232 mcg-14 mcg/inh inhalation powder 1, inhalation, Inhalation, 2 times a day, rinse mouth and throat after use, # 1 each, Refills 0, Tot. Refills 0, Maintenance, 03/18/20 17:23:00 EDT, Powder, Route to Pharmacy Electronically, [id number], [facility]/pharmacy #[id number], 15... Start Date: 03/18/20 Stop Date: 04/17/20 Status: Orderedalbuterol CFC free 90 mcg/inh inhalation aerosol 2, puffs, Inhalation, 4 times a day, PRN, # 25 Gm, Refills 0, Tot. Refills 0, Maintenance, 03/18/20 17:24:00 EDT, Aerosol, Route to Pharmacy Electronically, [id number], [facility]/pharmacy #[id number], 155, cm, 03/18/20 16:03:00 EDT, Heig... Start Date: 03/18/20 Status: OrderedbuPROPion 300 mg/24 hours (XL) oral tablet, extended release 1 tablet = 300 mg, By Mouth, Daily, # 30 tablet, 0 Refills, Maintenance, 03/18/20 17:24:00 EDT, XL Tablet, [facility]/pharmacy #[id number], 155, cm, 03/18/20 16:03:00 EDT, Height, 93.3, kg, 03/17/20 6:29:00 EDT, Dry Weight Start Date: 03/18/20 Stop Date: 04/17/20 Status: Orderedcetirizine 10 mg oral tablet 1 tablet = 10 mg, By Mouth, Daily, # 30 tablet, 0 Refills, Maintenance, 03/18/20 17:24:00 EDT, Tablet, [facility]/pharmacy #[id number], 155, cm, 03/18/20 16:03:00 EDT, Height, 93.3, kg, 03/17/20 6:29:00 EDT, Dry Weight Start Date: 03/18/20 Status: OrderedColace sodium 100 mg oral capsule 100 mg, 1, capsule, By Mouth, 2 times a day, PRN, # 60 capsule, Refills 0, Tot. Refills 0, Maintenance, for constipation, 01/11/21 8:47:00 EDT, Route to Pharmacy Electronically, [facility]/pharmacy #[id number], Partial fill upon patient request if the prescription... Start Date: 01/11/21 Stop Date: 02/12/21 Status: OrderedDilaudid 2 mg oral tablet 1 tablet = 2 mg, By Mouth, Every 4 hours, PRN as needed for pain, # 18 tablet, 0 Refills, Acute 02/12/21 8:49:00 EDT, 01/11/21 8:48:00 EDT, Tablet, [facility]/pharmacy #[id number], Partial fill upon patient requestif the prescription is for a schedule II opioid d... Start Date: 01/11/21 Stop Date: 02/12/21 Status: Orderedfolic acid 1 mg oral tablet 1 mg, 1, tablet, By Mouth, Daily, # 30 tablet, Refills 0, Tot. Refills 0, Maintenance, 03/18/20 17:21:00 EDT, Route to Pharmacy Electronically, [facility]/pharmacy #[id number], 155, cm, 03/18/20 16:03:00 EDT, Height, 93.3, kg, 03/17/20 6:29:00 EDT, Dry Weight Start Date: 03/18/20 Status: Orderedibuprofen 600 mg oral tablet 600 mg, 1, tablet, By Mouth, 4 times a day, PRN, # 40 tablet, Refills 0, Tot. Refills 0, Acute 02/12/21 8:48:00 EDT, for pain, 01/11/21 8:47:00 EDT, Route to Pharmacy Electronically, [facility]/pharmacy #[id number], Partial fill upon patient request if the prescri... Start Date: 01/11/21 Stop Date: 02/12/21 Status: Orderedmultivitamin Multiple Vitamins oral tablet 1 tablet, By Mouth, Daily, # 30 tablet, 0 Refills, Maintenance, 03/18/20 17:20:00 EDT, Tablet, [facility]/pharmacy #[id number], 1 tablet By Mouth Daily,x30 days, 155, cm, 03/18/20 16:03:00 EDT, Height, 93.3, kg, 03/17/20 6:29:00 EDT, Dry Weight Start Date: 03/18/20 Stop Date: 04/17/20 Status: Orderedsimethicone 80 mg oral tablet 1 tablet = 80 mg, Chew, 3 times a day after meals and bedtime, PRN for gas, # 60 tablet, 0 Refills, Acute 02/12/21 8:49:00 EDT, 01/11/21 8:47:00 EDT, Tablet, [facility]/pharmacy #[id number], Partial fill upon patient request if the prescription is for a schedule I... Start Date: 01/11/21 Stop Date: 02/12/21 Status: OrderedSingulair 10 mg oral tablet 10 mg, 1, tablet, By Mouth, Daily, # 30 tablet, Refills 0, Tot. Refills 0, Maintenance, 03/18/20 17:23:00 EDT, Route to Pharmacy Electronically, [facility]/pharmacy #[id number], 155, cm, 03/18/20 16:03:00 EDT, Height, 93.3, kg, 03/17/20 6:29:00 EDT, Dry Weight Start Date: 03/18/20 Status: OrderedSubutex = 8 mg, Sublingual, 2 times a day, 0 Refills, Maintenance, 12/14/20 16:23:00 EDT, Partial fill upon patient request if the prescription is for a schedule II opioid drug. Start Date: 12/14/20 Status: OrderedTylenol 325 mg oral capsule 2 capsule = 650 mg, By Mouth, Every 4 hours, PRN as needed for pain, not to exceed 4000 mg/day, # 90capsule, 0 Refills, Acute 02/12/21 8:49:00 EDT, 01/11/21 8:47:00 EDT, Capsule, [facility]/pharmacy #[id number], Partial fill upon patient request if the prescripti... Start Date: 01/11/21 Stop Date: 02/12/21 Status: Ordered Problem List Condition Effective Dates Status Health Status Informant Asthma(Confirmed) Active Anxiety and depression(Confirmed) Active Obesity during (Confirmed) Active Opioid use disorder(Confirmed)1, 2 Active Rh alloimmunization, maternal, Active antepartum (anti-c)(Confirmed) Seizure disorder(Confirmed) Active Hepatitis C(Confirmed) Active 1now on [id number] methadone Social History Social History Type Response Smoking Status Former smoker, quit more bridgette n 30 days ago; Number of years: 0.7; Started at age: 29; Stopped at age: 30; entered on: 09/01/20 Sex
--- OUTSIDE RECORDS SUMMARY | 2022-05-12 17:29 | XMS_ITS | Continuity of Care Document ---
:1990 Author Organization [facility] Address [address] [place] [id number]- Care Team Providers Name Role Phone Dirk GAYLE, Aj Hall Primary Care Physician Encounter [facility] Date(s): 12/30/20 - 01/29/21 [facility] [address] [place] [id number] Allergies, Adverse Reactions, Alerts Substance Reaction Severity Status NKA Active Immunizations Given and Recorded Vaccine Date Status Refusal Reason pneumococcal 23-valent vaccine1 12/19/17 Given Not Given Vaccine Date Status Refusal Reason influenza virus vaccine, inactivated2 09/04/19 Not Given Patient Refuses 1Early/Late Reason: Med Not [id number] Comment: i was just sick, I dont want it Medications AirDuo RespiClick 232 mcg-14 mcg/inh inhalation powder 1, inhalation, Inhalation, 2 times a day, rinse mouth and throat after use, # 1 each, Refills 0, Tot. Refills 0, Maintenance, 03/18/20 17:23:00 EDT, Powder, Route to Pharmacy Electronically, [id number], [facility]/pharmacy #[id number], 15... Start Date: 03/18/20 Stop Date: 04/17/20 Status: Orderedalbuterol CFC free 90 mcg/inh inhalation aerosol 2, puffs, Inhalation, 4 times a day, PRN, # 25 Gm, Refills 0, Tot. Refills 0, Maintenance, 03/18/20 17:24:00 EDT, Aerosol, Route to Pharmacy Electronically, [id number], [facility]/pharmacy #[id number], 155, cm, 03/18/20 16:03:00 EDT, Heig... Start Date: 03/18/20 Status: OrderedbuPROPion 300 mg/24 hours (XL) oral tablet, extended release 1 tablet = 300 mg, By Mouth, Daily, # 30 tablet, 0 Refills, Maintenance, 03/18/20 17:24:00 EDT, XL Tablet, [facility]/pharmacy #[id number], 155, cm, 03/18/20 16:03:00 EDT, Height, 93.3, kg, 03/17/20 6:29:00 EDT, Dry Weight Start Date: 03/18/20 Stop Date: 04/17/20 Status: Orderedcetirizine 10 mg oral tablet 1 tablet = 10 mg, By Mouth, Daily, # 30 tablet, 0 Refills, Maintenance, 03/18/20 17:24:00 EDT, Tablet, [facility]/pharmacy #[id number], 155, cm, 03/18/20 16:03:00 EDT, Height, 93.3, kg, 03/17/20 6:29:00 EDT, Dry Weight Start Date: 03/18/20 Status: OrderedColace sodium 100 mg oral capsule 100 mg, 1, capsule, By Mouth, 2 times a day, PRN, # 60 capsule, Refills 0, Tot. Refills 0, Maintenance, for constipation, 01/11/21 8:47:00 EDT, Route to Pharmacy Electronically, [facility]/pharmacy #[id number], Partial fill upon patient request if the prescription... Start Date: 01/11/21 Stop Date: 02/12/21 Status: OrderedDilaudid 2 mg oral tablet 1 tablet = 2 mg, By Mouth, Every 4 hours, PRN as needed for pain, # 18 tablet, 0 Refills, Acute 02/12/21 8:49:00 EDT, 01/11/21 8:48:00 EDT, Tablet, [facility]/pharmacy #[id number], Partial fill upon patient requestif the prescription is for a schedule II opioid d... Start Date: 01/11/21 Stop Date: 02/12/21 Status: Orderedfolic acid 1 mg oral tablet 1 mg, 1, tablet, By Mouth, Daily, # 30 tablet, Refills 0, Tot. Refills 0, Maintenance, 03/18/20 17:21:00 EDT, Route to Pharmacy Electronically, [facility]/pharmacy #[id number], 155, cm, 03/18/20 16:03:00 EDT, Height, 93.3, kg, 03/17/20 6:29:00 EDT, Dry Weight Start Date: 03/18/20 Status: Orderedibuprofen 600 mg oral tablet 600 mg, 1, tablet, By Mouth, 4 times a day, PRN, # 40 tablet, Refills 0, Tot. Refills 0, Acute 02/12/21 8:48:00 EDT, for pain, 01/11/21 8:47:00 EDT, Route to Pharmacy Electronically, [facility]/pharmacy #[id number], Partial fill upon patient request if the prescri... Start Date: 01/11/21 Stop Date: 02/12/21 Status: Orderedmultivitamin Multiple Vitamins oral tablet 1 tablet, By Mouth, Daily, # 30 tablet, 0 Refills, Maintenance, 03/18/20 17:20:00 EDT, Tablet, [facility]/pharmacy #[id number], 1 tablet By Mouth Daily,x30 days, 155, cm, 03/18/20 16:03:00 EDT, Height, 93.3, kg, 03/17/20 6:29:00 EDT, Dry Weight Start Date: 03/18/20 Stop Date: 04/17/20 Status: Orderedsimethicone 80 mg oral tablet 1 tablet = 80 mg, Chew, 3 times a day after meals and bedtime, PRN for gas, # 60 tablet, 0 Refills, Acute 02/12/21 8:49:00 EDT, 01/11/21 8:47:00 EDT, Tablet, [facility]/pharmacy #[id number], Partial fill upon patient request if the prescription is for a schedule I... Start Date: 01/11/21 Stop Date: 02/12/21 Status: OrderedSingulair 10 mg oral tablet 10 mg, 1, tablet, By Mouth, Daily, # 30 tablet, Refills 0, Tot. Refills 0, Maintenance, 03/18/20 17:23:00 EDT, Route to Pharmacy Electronically, [facility]/pharmacy #[id number], 155, cm, 03/18/20 16:03:00 EDT, Height, [...] disorder(Confirmed) Active Hepatitis C(Confirmed) Active 1now on ilyuzuxt7uz methadone Social History Social History Type Response Smoking Status Former smoker, quit more bridgette n 30 days ago; Number of years: 0.7; Started at age: 29; Stopped at age: 30; entered on: 09/01/20 Sex
--- OUTSIDE RECORDS SUMMARY | 2022-05-12 17:29 | XMS_ITS | Continuity of Care Document ---
:1990 Author Organization [facility] Address [address] [place] [id number]- Care Team Providers Name Role Phone Dirk GAYLE, Aj Hall Primary Care Physician Encounter [facility] Date(s): 12/10/20 - 01/15/[address] [id number] Attending Physician: Fiorella Henderson DO Admitting Physician: Fiorella Henderson DO Referring Physician: Fiorella Henderson DO Allergies, Adverse Reactions, Alerts Substance Reaction Severity Status NKA Active Immunizations Given and Recorded Vaccine Date Status Refusal Reason pneumococcal 23-valent vaccine1 12/19/17 Given Not Given Vaccine Date Status Refusal Reason influenza virus vaccine, inactivated2 09/04/19 Not Given Patient Refuses 1Early/Late Reason: Med Not [id number] Comment: i was just sick, I dont want it Medications AirDuo RespiClick 232 mcg-14 mcg/inh inhalation powder 1, inhalation, Inhalation, 2 times a day, rinse mouth and throat after use, # 1 each, Refills 0, Tot. Refills 0, Maintenance, 03/18/20 17:23:00 EDT, Powder, Route to Pharmacy Electronically, [id number], [facility]/pharmacy #[id number], 15... Start Date: 03/18/20 Stop Date: 04/17/20 Status: Orderedalbuterol CFC free 90 mcg/inh inhalation aerosol 2, puffs, Inhalation, 4 times a day, PRN, # 25 Gm, Refills 0, Tot. Refills 0, Maintenance, 03/18/20 17:24:00 EDT, Aerosol, Route to Pharmacy Electronically, [id number], [facility]/pharmacy #[id number], 155, cm, 03/18/20 [...] 01/11/21 8:47:00 EDT, [id number] Partial fill upon patient request if [...] 02/12/21 8:49:00 EDT, 01/11/21 8:47:00 EDT, Capsule, [facility]/pharmacy #[id number], Partial fill upon patient request if the prescripti... Start Date: 01/11/21 Stop Date: 02/12/21 Status: Ordered Problem List Condition Effective Dates Status Health Status Informant Asthma(Confirmed) Active Anxiety and depression(Confirmed) Active Obesity during (Confirmed) Active Opioid use disorder(Confirmed)1, 2 Active Rh alloimmunization, maternal, Active antepartum (anti-c)(Confirmed) Seizure disorder(Confirmed) Active Hepatitis C(Confirmed) Active 1now on [id number] methadone Social History Social History Type Response Smoking Status Former smoker, quit more bridgette n 30 days ago; Number of years: 0.7; Started at age: 29; Stopped at age: 30; entered on: 09/01/20 Sex
--- OUTSIDE RECORDS SUMMARY | 2022-05-12 17:29 | XMS_ITS | Continuity of Care Document ---
:1990 Author Organization [facility] Address [address] [place] [phone]- Care Team Providers Name Role Phone Dirk GAYLE, Aj Hall Primary Care Physician Encounter [facility] Date(s): 12/30/20 - 02/03/[facility] [address] [place] [id number] Attending Physician: Jorje Macdonald MD Admitting Physician: Jorje Macdonald MD Referring Physician: Trinidad Tafoya DO Allergies, Adverse Reactions, Alerts Substance Reaction Severity Status NKA Active Immunizations Given and Recorded Vaccine Date Status Refusal Reason pneumococcal 23-valent vaccine1 12/19/17 Given Not Given Vaccine Date Status Refusal Reason influenza virus vaccine, inactivated2 09/04/19 Not Given Patient Refuses 1Early/Late Reason: Med Not [id number] Comment: i was just sick, I dont want it Medications AirDuo RespiClick 232 mcg-14 mcg/inh inhalation powder 1, inhalation, Inhalation, 2 times a day, rinse mouth and throat after use, # 1 each, Refills 0, Tot. Refills 0, Maintenance, 03/18/20 17:23:00 EDT, Powder, Route to Pharmacy Electronically, [id number], [facility]/pharmacy #[id number], 15... Start Date: 03/18/20 Stop Date: 04/17/20 Status: Orderedalbuterol CFC free 90 mcg/inh inhalation aerosol 2, puffs, Inhalation, 4 times a day, PRN, # 25 Gm, Refills 0, Tot. Refills 0, Maintenance, 03/18/20 17:24:00 EDT, Aerosol, Route to Pharmacy Electronically, [id number], [facility]/pharmacy #[id number], 155, cm, 03/18/20 [...] 01/11/21 8:47:00 EDT, Route to Pharmacy Electronically, [facility]/pharmacy #[id number], Partial fill upon patient request if the prescription... Start Date: 01/11/21 Stop Date: 02/12/21 Status: OrderedDilaudid 2 mg oral tablet 1 tablet = 2 mg, By Mouth, Every 4 hours, PRN as needed for pain, # 18 tablet, 0 Refills, Acute 02/12/21 8:49:00 EDT, 01/11/21 8:48:00 EDT, Tablet, [facility]/pharmacy #[id number], Partial fill upon patient requestif the prescription is for a schedule II opioid d... Start Date: 01/11/21 Stop Date: 02/12/21 Status: Orderedfolic acid 1 mg oral tablet 1 mg, 1, tablet, By Mouth, Daily, # 30 tablet, Refills 0, Tot. Refills 0, Maintenance, 03/18/20 17:21:00 EDT, Route to Pharmacy Electronically, [facility]/pharmacy #[id number], 155, cm, 03/18/20 16:03:00 EDT, Height, 93.3, kg, 03/17/20 6:29:00 EDT, Dry Weight Start Date: 03/18/20 Status: Orderedibuprofen 600 mg oral tablet 600 mg, 1, tablet, By Mouth, 4 times a day, PRN, # 40 tablet, Refills 0, Tot. Refills 0, Acute 02/12/21 8:48:00 EDT, for pain, 01/11/21 8:47:00 EDT, Route to Pharmacy Electronically, [facility]/pharmacy #[id number], Partial fill upon patient request if the prescri... Start Date: 01/11/21 Stop Date: 02/12/21 Status: Orderedmultivitamin Multiple Vitamins oral tablet 1 tablet, By Mouth, Daily, # 30 tablet, 0 Refills, Maintenance, 03/18/20 17:20:00 EDT, Tablet, [facility]/pharmacy #[id number], 1 tablet By Mouth [...] 02/12/21 8:49:00 EDT, 01/11/21 8:47:00 EDT, Tablet, [facility]/pharmacy #[id number], Partial fill upon patient request if [...] disorder(Confirmed) Active Hepatitis C(Confirmed) Active 1now on [id number] methadone Social History Social History Type Response Smoking Status Former smoker, quit more bridgette n 30 days ago; Number of years: 0.7; Started at age: 29; Stopped at age: 30; entered on: 09/01/20 Sex
--- OUTSIDE RECORDS SUMMARY | 2022-05-12 17:29 | XMS_ITS | Continuity of Care Document ---
:1990 Author Organization [facility] Address [address] [place] [id number]- Care Team Providers Name Role Phone Dirk GAYLE, Aj Hall Primary Care Physician Encounter [facility] Date(s): 10/21/20 - 11/20/20 [facility] [address] [place] [id number] Attending Physician: AdmViola sow Admitting Physician: Admtr, Viola Referring Physician: Admtr, Ar8 Allergies, Adverse Reactions, Alerts Substance Reaction Severity Status NKA Active Immunizations Given and Recorded Vaccine Date Status Refusal Reason pneumococcal 23-valent vaccine1 12/19/17 Given Not Given Vaccine Date Status Refusal Reason influenza virus vaccine, inactivated2 09/04/19 Not Given Patient Refuses 1Early/Late Reason: Med Not [id number] Comment: i was just sick, I dont want it Medications AirDuo RespiClick 232 mcg-14 mcg/inh inhalation powder 1, inhalation, Inhalation, 2 times a day, rinse mouth and throat after use, # 1 each, Refills 0, Tot. Refills 0, Maintenance, 03/18/20 17:23:00 EDT, Powder, Route to Pharmacy Electronically, [id number], [facility]/pharmacy #[id number], 15... Start Date: 03/18/20 Stop Date: 04/17/20 Status: Orderedalbuterol CFC free 90 mcg/inh inhalation aerosol 2, puffs, Inhalation, 4 times a day, PRN, # 25 Gm, Refills 0, Tot. Refills 0, Maintenance, 03/18/20 17:24:00 EDT, Aerosol, Route to Pharmacy Electronically, [id number], [facility]/pharmacy #[id number], 155, cm, 03/18/20 16:03:00 [...] Refills, Maintenance, 03/18/20 17:24:00 EDT, XL Tablet, [facility]/pharmacy #[id number], 155, cm, 03/18/20 16:03:00 EDT, Height, 93.3, kg, 03/17/20 6:29:00 EDT, Dry Weight Start Date: 03/18/20 Stop Date: 04/17/20 Status: Orderedcetirizine 10 mg oral tablet 1 tablet = 10 mg, By Mouth, Daily, # 30 tablet, 0 Refills, Maintenance, 03/18/20 17:24:00 EDT, Tablet, [facility]/pharmacy #[id number], 155, cm, 03/18/20 16:03:00 EDT, Height, 93.3, kg, 03/17/20 6:29:00 EDT, Dry Weight Start Date: 03/18/20 Status: OrderedcloNIDine 0.1 mg oral tablet 0.1 mg, By Mouth, 3 times a day, PRN, # 30 tablet, Refills 0, Tot. Refills 0, Maintenance, Anxiety, 03/18/20 17:21:00 EDT, Route to Pharmacy Electronically, [facility]/pharmacy #[id number], 155, cm, 03/18/20 16:03:00 EDT, Height, 93.3, kg, 03/17/20 6:29:00 EDT, Start Date: 03/18/20 Stop Date: 04/17/20 Status: Orderedfolic acid 1 mg oral tablet 1 mg, 1, tablet, By Mouth, Daily, # 30 tablet, Refills 0, Tot. Refills 0, Maintenance, 03/18/20 17:21:00 EDT, Route to Pharmacy Electronically, [facility]/pharmacy #[id number], 155, cm, 03/18/20 16:03:00 EDT, Height, 93.3, kg, 03/17/20 6:29:00 EDT, Dry Weight Start Date: 03/18/20 Status: Orderedmultivitamin Multiple Vitamins oral tablet 1 tablet, By Mouth, Daily, # 30 tablet, 0 Refills, Maintenance, 03/18/20 17:20:00 EDT, Tablet, [facility]/pharmacy #[id number], 1 tablet By Mouth Daily,x30 days, 155, cm, 03/18/20 16:03:00 EDT, Height, 93.3, kg, 03/17/20 6:29:00 EDT, Dry Weight Start Date: 03/18/20 Stop Date: 04/17/20 Status: OrderedSingulair 10 mg oral tablet 10 mg, 1, tablet, By Mouth, Daily, # 30 tablet, Refills 0, Tot. Refills 0, Maintenance, 03/18/20 17:23:00 EDT, Route to Pharmacy Electronically, [facility]/pharmacy #[id number], 155, cm, 03/18/20 16:03:00 EDT, Height, 93.3, kg, 03/17/20 6:29:00 EDT, Dry Weight Start Date: 03/18/20 Status: Ordered Problem List Condition Effective Dates Status Health Status Informant Asthma(Confirmed) Active Anxiety and depression(Confirmed) Active Obesity during (Confirmed) Active Opioid use disorder(Confirmed)1, 2 Active Rh alloimmunization, maternal, Active antepartum (anti-c)(Confirmed) Seizure disorder(Confirmed) Active Hepatitis C(Confirmed) Active 1now on [id number] methadone Social History Social History Type Response Smoking Status Former smoker, quit more bridgette n 30 days ago; Number of years: 0.7; Started at age: 29; Stopped at age: 30; entered on: 09/01/20 Sex
--- OUTSIDE RECORDS SUMMARY | 2022-05-12 17:29 | XMS_ITS | Continuity of Care Document ---
:1990 Author Organization [facility] Address [address] [place] [id number]- Care Team Providers Name Role Phone Aj Cavazos MD Primary Care Physician Encounter [facility] Date(s): 04/08/22 - 05/11/22 [facility] [address] [place] [id number] Attending Physician: Laly Raymond MD Admitting Physician: Laly Raymond MD Referring Physician: Aj Cavazos MD Allergies, Adverse Reactions, Alerts No Known Allergies Immunizations Given and Recorded Vaccine Date Status Refusal Reason pneumococcal 23-valent vaccine1 12/19/17 Given Not Given Vaccine Date Status Refusal Reason influenza virus vaccine, inactivated2 09/04/19 Not Given Patient Refuses 1Early/Late Reason: Med Not [id number] Comment: i was just sick, I dont want it Medications AirDuo RespiClick 232 mcg-14 mcg/inh inhalation powder 1, inhalation, Inhalation, 2 times a day, rinse mouth and throat after use, # 1 each, Refills 0, Tot. Refills 0, Maintenance, 03/18/20 17:23:00 EDT, Powder, Route to Pharmacy Electronically, [id number], [facility]/pharmacy #[id number], 15... Start Date: 03/18/20 Stop Date: 04/17/20 Status: Orderedalbuterol CFC free 90 mcg/inh inhalation aerosol 2, puffs, Inhalation, 4 times a day, PRN, # 25 Gm, Refills 0, Tot. Refills 0, Maintenance, 03/18/20 17:24:00 EDT, Aerosol, Route to Pharmacy Electronically, [id number], [facility]/pharmacy #[id number], 155, cm, 03/18/20 16:03:00 EDT, Heig... Start Date: 03/18/20 Status: OrderedbuPROPion 300 mg/24 hours (XL) oral tablet, extended release 1 tablet = 300 mg, By Mouth, Daily, # 30 tablet, 0 Refills, Maintenance, 03/18/20 17:24:00 EDT, XL Tablet, [facility]/pharmacy #[id number], 155, cm, 03/18/20 16:03:00 EDT, Height, 93.3, kg, 03/17/20 6:29:00 EDT, Dry Weight Start Date: 03/18/20 Stop Date: 04/17/20 Status: Orderedcetirizine 10 mg oral tablet 1 tablet = 10 mg, By Mouth, Daily, # 30 tablet, 0 Refills, Maintenance, 03/18/20 17:24:00 EDT, Tablet, [facility]/pharmacy #[id number], 155, cm, 03/18/20 16:03:00 EDT, Height, 93.3, kg, 03/17/20 6:29:00 EDT, Dry Weight Start Date: 03/18/20 Status: OrderedColace sodium 100 mg oral capsule 100 mg, 1, capsule, By Mouth, 2 times a day, PRN, # 60 capsule, Refills 0, Tot. Refills 0, Maintenance, for constipation, 01/11/21 8:47:00 EDT, Route to Pharmacy Electronically, [facility]/pharmacy #[id number], Partial fill upon patient request if the prescription... Start Date: 01/11/21 Stop Date: 02/12/21 Status: Orderedfolic acid 1 mg oral tablet 1 mg, 1, tablet, By Mouth, Daily, # 30 tablet, Refills 0, Tot. Refills 0, Maintenance, 03/18/20 17:21:00 EDT, Route to Pharmacy Electronically, [facility]/pharmacy #[id number], 155, cm, 03/18/20 16:03:00 EDT, Height, 93.3, kg, 03/17/20 6:29:00 EDT, Dry Weight Start Date: 03/18/20 Status: Orderedmultivitamin Multiple Vitamins oral tablet 1 tablet, By Mouth, Daily, # 30 tablet, 0 Refills, Maintenance, 03/18/20 17:20:00 EDT, Tablet, [facility]/pharmacy #[id number], 1 tablet By Mouth Daily,x30 days, 155, cm, 03/18/20 16:03:00 EDT, Height, 93.3, kg, 03/17/20 6:29:00 EDT, Dry Weight Start Date: 03/18/20 Stop Date: 04/17/20 Status: OrderedSingulair 10 mg oral tablet 10 mg, 1, tablet, By Mouth, Daily, # 30 tablet, Refills 0, Tot. Refills 0, Maintenance, 03/18/20 17:23:00 EDT, Route to Pharmacy Electronically, [facility]/pharmacy #[id number], 155, cm, 03/18/20 16:03:00 EDT, Height, 93.3, kg, 03/17/20 6:29:00 EDT, Dry Weight Start Date: 03/18/20 Status: OrderedSubutex = 8 mg, Sublingual, 2 times a day, 0 Refills, Maintenance, 12/14/20 16:23:00 EDT, Partial fill upon patient request if the prescription is for a schedule II opioid drug. Start Date: 12/14/20 Status: OrderedZofran 4 mg oral tablet 1 tablet = 4 mg, By Mouth, Every 8 hours, PRN as needed for nausea/vomiting, # 15 tablet, 0 Refills,Maintenance, 05/28/21 20:32:00 EST, Tablet, [facility]/pharmacy #[id number], Partial fill upon patient request ifthe prescription is for a schedule II opioid drug... Start Date: 05/28/21 Stop Date: 06/02/21 Status: Ordered Problem List Condition Confirmation Course Effective Dates Status Health Stat us Informant Asthma Confirmed Active Anxiety and Confirmed Active depression Obese class II Confirmed Active Obesity during Confirmed Active Opioid use Confirmed Active disorder1, 2 Rh Confirmed Active alloimmunization, maternal, antepartum (anti-c) Seizure disorder Confirmed Active Hepatitis C Confirmed Active 1now on [id number] methadone Social History Social History Type Response Tobacco Use: 4 or less cigarettes(le ss than 1/4 pack)/day in last 30 days. Sex Patient Care team information Care Team PersonnelName: Sarahi Oneal RN Position: [facility] RN Member Role: Primary Care Nurse Name: Aj Cavazos MD Position: [facility] Outreach Member Role: PCP Address: Address: [address] [place] [address]- Name: Belinda Mercado RN Position: [facility] RN Member Role: Primary Care Nurse Name: Loretta Fall RN Position: [facility] RN Member Role: Primary Care Nurse Name: Denzle Enriquez RN Position: [facility] RN Supv Member Role: Primary Care Nurse Care Team Related PersonsName: JUANA SALAS Address: [employer] Address: home [address] [place] [address] [place] Name: GENE DANG Address: home [address] [place] [address] Name: ALMA DANG Address: home [address] [place] [address]
--- OUTSIDE RECORDS SUMMARY | 2022-05-12 17:29 | XMS_ITS | Continuity of Care Document ---
:1990 Author Organization [facility] Address [address] [place] [phone]- Care Team Providers Name Role Phone Dirk GAYLE, Aj Hall Primary Care Physician Encounter [facility] Date(s): 06/25/20 - 09/25/[facility] [address] [place] [id number] Attending Physician: Jorje Macdonald MD Admitting Physician: Renae GAYLE, Jorje Referring Physician: Bushra ZUNIGA, July Richter Allergies, Adverse Reactions, Alerts Substance Reaction Severity Status NKA Active Immunizations Given and Recorded Vaccine Date Status Refusal Reason pneumococcal 23-valent vaccine1 12/19/17 Given Not Given Vaccine Date Status Refusal Reason influenza virus vaccine, inactivated2 09/04/19 Not Given Patient Refuses 1Early/Late Reason: Med Not [id number] Comment: i was just sick, I dont want it Medications AirDuo RespiClick 232 mcg-14 mcg/inh inhalation powder 1, inhalation, Inhalation, 2 times a day, rinse mouth and throat after use, # 1 each, Refills 0, Tot. Refills 0, Maintenance, 03/18/20 17:23:00 EDT, Powder, Route to Pharmacy Electronically, [id number], [facility]/pharmacy #[id number], 15... Start Date: 03/18/20 Stop Date: 04/17/20 Status: Orderedalbuterol CFC free 90 mcg/inh inhalation aerosol 2, puffs, Inhalation, 4 times a day, PRN, # 25 Gm, Refills 0, Tot. Refills 0, Maintenance, 03/18/20 17:24:00 EDT, Aerosol, Route to Pharmacy Electronically, [id number], [facility]/pharmacy #[id number], 155, cm, 03/18/20 16:03:00 [...] Refills, Maintenance, 03/18/20 17:24:00 EDT, XL Tablet, [facility]/pharmacy #[id number], 155, cm, 03/18/20 16:03:00 EDT, Height, 93.3, kg, 03/17/20 6:29:00 EDT, Dry Weight Start Date: 03/18/20 Stop Date: 04/17/20 Status: Orderedcetirizine 10 mg oral tablet 1 tablet = 10 mg, By Mouth, Daily, # 30 tablet, 0 Refills, Maintenance, 03/18/20 17:24:00 EDT, Tablet, [facility]/pharmacy #[id number], 155, cm, 03/18/20 16:03:00 EDT, Height, 93.3, kg, 03/17/20 6:29:00 EDT, Dry Weight Start Date: 03/18/20 Status: OrderedcloNIDine 0.1 mg oral tablet 0.1 mg, By Mouth, 3 times a day, PRN, # 30 tablet, Refills 0, Tot. Refills 0, Maintenance, Anxiety, 03/18/20 17:21:00 EDT, Route to Pharmacy Electronically, [facility]/pharmacy #[id number], 155, cm, 03/18/20 16:03:00 EDT, Height, 93.3, kg, 03/17/20 6:29:00 EDT, Start Date: 03/18/20 Stop Date: 04/17/20 Status: Orderedfolic acid 1 mg oral tablet 1 mg, 1, tablet, By Mouth, Daily, # 30 tablet, Refills 0, Tot. Refills 0, Maintenance, 03/18/20 17:21:00 EDT, Route to Pharmacy Electronically, [facility]/pharmacy #[id number], 155, cm, 03/18/20 16:03:00 EDT, Height, 93.3, kg, 03/17/20 6:29:00 EDT, Dry Weight Start Date: 03/18/20 Status: Orderedmultivitamin Multiple Vitamins oral tablet 1 tablet, By Mouth, Daily, # 30 tablet, 0 Refills, Maintenance, 03/18/20 17:20:00 EDT, Tablet, [facility]/pharmacy #[id number], 1 tablet By Mouth Daily,x30 days, 155, cm, 03/18/20 16:03:00 EDT, Height, 93.3, kg, 03/17/20 6:29:00 EDT, Dry Weight Start Date: 03/18/20 Stop Date: 04/17/20 Status: OrderedSingulair 10 mg oral tablet 10 mg, 1, tablet, By Mouth, Daily, # 30 tablet, Refills 0, Tot. Refills 0, Maintenance, 03/18/20 17:23:00 EDT, Route to Pharmacy Electronically, [facility]/pharmacy #[id number], 155, cm, 03/18/20 16:03:00 [...]
--- OUTSIDE RECORDS SUMMARY | 2022-05-12 17:29 | XMS_ITS | Continuity of Care Document ---
:1990 Author Organization [facility] Address [address] [place] [phone]- Care Team Providers Name Role Phone Dirk GAYLE, Aj Hall Primary Care Physician Encounter [facility] Date(s): 04/05/22 - 05/05/[facility] [address] [place] [id number] Allergies, Adverse Reactions, Alerts No Known Allergies Immunizations Given and Recorded Vaccine Date Status Refusal Reason pneumococcal 23-valent vaccine1 12/19/17 Given Not Given Vaccine Date Status Refusal Reason influenza virus vaccine, inactivated2 09/04/19 Not Given Patient Refuses 1Early/Late Reason: Med Not [id number] Comment: i was just sick, I dont want it Medications AirDuo RespiClick 232 mcg-14 mcg/inh inhalation powder 1, inhalation, Inhalation, 2 times a day, rinse mouth and throat after use, # 1 each, Refills 0, Tot. Refills 0, Maintenance, 03/18/20 17:23:00 EDT, Powder, Route to Pharmacy Electronically, [id number], [facility]/pharmacy #[id number], 15... Start Date: 03/18/20 Stop Date: 04/17/20 Status: Orderedalbuterol CFC free 90 mcg/inh inhalation aerosol 2, puffs, Inhalation, 4 times a day, PRN, # 25 Gm, Refills 0, Tot. Refills 0, Maintenance, 03/18/20 17:24:00 EDT, Aerosol, Route to Pharmacy Electronically, [id number], [facility]/pharmacy #[id number], 155, cm, 03/18/20 16:03:00 EDT, Heig... Start Date: 03/18/20 Status: OrderedbuPROPion 300 mg/24 hours (XL) oral tablet, extended release 1 tablet = 300 mg, By Mouth, Daily, # 30 tablet, 0 Refills, Maintenance, 03/18/20 17:24:00 EDT, XL Tablet, [facility]/pharmacy #[id number], 155, cm, 03/18/20 16:03:00 EDT, Height, 93.3, kg, 03/17/20 6:29:00 EDT, Dry Weight Start Date: 03/18/20 Stop Date: 04/17/20 Status: Orderedcetirizine 10 mg oral tablet 1 tablet = 10 mg, By Mouth, Daily, # 30 tablet, 0 Refills, Maintenance, 03/18/20 17:24:00 EDT, Tablet, [facility]/pharmacy #[id number], 155, cm, 03/18/20 16:03:00 EDT, Height, 93.3, kg, 03/17/20 6:29:00 EDT, Dry Weight Start Date: 03/18/20 Status: OrderedColace sodium 100 mg oral capsule 100 mg, 1, capsule, By Mouth, 2 times a day, PRN, # 60 capsule, Refills 0, Tot. Refills 0, Maintenance, for constipation, 01/11/21 8:47:00 EDT, Route to Pharmacy Electronically, [facility]/pharmacy #[id number], Partial fill upon patient request if the prescription... Start Date: 01/11/21 Stop Date: 02/12/21 Status: Orderedfolic acid 1 mg oral tablet 1 mg, 1, tablet, By Mouth, Daily, # 30 tablet, Refills 0, Tot. Refills 0, Maintenance, 03/18/20 17:21:00 EDT, Route to Pharmacy Electronically, [facility]/pharmacy #[id number], 155, cm, 03/18/20 16:03:00 EDT, Height, 93.3, kg, 03/17/20 6:29:00 EDT, Dry Weight Start Date: 03/18/20 Status: Orderedmultivitamin Multiple Vitamins oral tablet 1 tablet, By Mouth, Daily, # 30 tablet, 0 Refills, Maintenance, 03/18/20 17:20:00 EDT, Tablet, [facility]/pharmacy #[id number], 1 tablet By Mouth Daily,x30 days, 155, cm, 03/18/20 16:03:00 EDT, Height, 93.3, kg, 03/17/20 6:29:00 EDT, Dry Weight Start Date: 03/18/20 Stop Date: 04/17/20 Status: OrderedSingulair 10 mg oral tablet 10 mg, 1, tablet, By Mouth, Daily, # 30 tablet, Refills 0, Tot. Refills 0, Maintenance, 03/18/20 17:23:00 EDT, Route to Pharmacy Electronically, [facility]/pharmacy #[id number], 155, cm, 03/18/20 16:03:00 [...] tablet, 0 Refills,Maintenance, 05/28/21 20:32:00 EST, Tablet, [facility]/pharmacy #[id number], Partial fill upon patient request ifthe [...] Active Hepatitis C Confirmed Active 1now on [id number] methadone Social History Social History Type Response Tobacco Use: 4 or less cigarettes(le ss than 1/4 pack)/day in last 30 days. Sex Patient Care team information Care Team PersonnelName: Sarahi Oneal RN Position: S RN Member Role: Primary Care Nurse Name: Dirk GAYLE , Aj Hall Position: [facility] Outreach Member Role: PCP Address: Address: [address] [place] [address]- [place] Name: Belinda Mercado RN Position: S RN Member Role: Primary Care Nurse Name: Loretta Fall RN Position: S RN Member Role: Primary Care Nurse Name: Denzel Enriquez RN Position: S RN Supv Member Role: Primary Care Nurse Care Team Related PersonsName: JUANA SALAS Address: [employer] Address: home [address] [place] [address] [place] Name: GENE DANG Address: home [address] [place] [address] Name: ALMA DANG Address: home [address] [place] [address]
--- OUTSIDE RECORDS SUMMARY | 2022-05-12 17:29 | XMS_ITS | Continuity of Care Document ---
:1990 Author Organization [facility] Address [address] [place] [phone]- Care Team Providers Name Role Phone Dirk GAYLE, Aj Hall Primary Care Physician Encounter [facility] Date(s): 12/23/20 - 01/22/21 [facility] [address] [place] [id number] Allergies, Adverse Reactions, Alerts Substance Reaction Severity Status NKA Active Immunizations Given and Recorded Vaccine Date Status Refusal Reason pneumococcal 23-valent vaccine1 12/19/17 Given Not Given Vaccine Date Status Refusal Reason influenza virus vaccine, inactivated2 09/04/19 Not Given Patient Refuses 1Early/Late Reason: Med Not [id number] Comment: i was just sick, I dont want it Medications AirDuo RespiClick 232 mcg-14 mcg/inh inhalation powder 1, inhalation, Inhalation, 2 times a day, rinse mouth and throat after use, # 1 each, Refills 0, Tot. Refills 0, Maintenance, 03/18/20 17:23:00 EDT, Powder, Route to Pharmacy Electronically, [id number], [facility]/pharmacy #[id number], 15... Start Date: 03/18/20 Stop Date: 04/17/20 Status: Orderedalbuterol CFC free 90 mcg/inh inhalation aerosol 2, puffs, Inhalation, 4 times a day, PRN, # 25 Gm, Refills 0, Tot. Refills 0, Maintenance, 03/18/20 17:24:00 EDT, Aerosol, Route to Pharmacy Electronically, [id number], [facility]/pharmacy #[id number], 155, cm, 03/18/20 16:03:00 EDT, Heig... Start Date: 03/18/20 Status: OrderedbuPROPion 300 mg/24 hours (XL) oral tablet, extended release 1 tablet = 300 mg, By Mouth, Daily, # 30 tablet, 0 Refills, Maintenance, 03/18/20 17:24:00 EDT, XL Tablet, [facility]/pharmacy #[id number], 155, cm, 03/18/20 16:03:00 EDT, Height, 93.3, kg, 03/17/20 6:29:00 EDT, Dry Weight Start Date: 03/18/20 Stop Date: 04/17/20 Status: Orderedcetirizine 10 mg oral tablet 1 tablet = 10 mg, By Mouth, Daily, # 30 tablet, 0 Refills, Maintenance, 03/18/20 17:24:00 EDT, Tablet, [facility]/pharmacy #[id number], 155, cm, 03/18/20 16:03:00 EDT, Height, 93.3, kg, 03/17/20 6:29:00 EDT, Dry Weight Start Date: 03/18/20 Status: OrderedColace sodium 100 mg oral capsule 100 mg, 1, capsule, By Mouth, 2 times a day, PRN, # 60 capsule, Refills 0, Tot. Refills 0, Maintenance, for constipation, 01/11/21 8:47:00 EDT, [id number] fill upon patient request if the prescription... Start Date: 01/11/21 Stop Date: 02/12/21 Status: OrderedDilaudid 2 mg oral tablet 1 tablet = 2 mg, By Mouth, Every 4 hours, PRN as needed for pain, # 18 tablet, 0 Refills, Acute 02/12/21 8:49:00 EDT, 01/11/21 8:48:00 EDT, Tablet, [facility]/pharmacy #[id number], Partial fill upon patient requestif the prescription is for a schedule II opioid d... Start Date: 01/11/21 Stop Date: 02/12/21 Status: Orderedfolic acid 1 mg oral tablet 1 mg, 1, tablet, By Mouth, Daily, # 30 tablet, Refills 0, Tot. Refills 0, Maintenance, 03/18/20 17:21:00 EDT, Route to Pharmacy Electronically, [facility]/pharmacy #[id number], 155, cm, 03/18/20 16:03:00 EDT, Height, 93.3, kg, 03/17/20 6:29:00 EDT, Dry Weight Start Date: 03/18/20 Status: Orderedibuprofen 600 mg oral tablet 600 mg, 1, tablet, By Mouth, 4 times a day, PRN, # 40 tablet, Refills 0, Tot. Refills 0, Acute 02/12/21 8:48:00 EDT, for pain, 01/11/21 8:47:00 EDT, Route to Pharmacy Electronically, [facility]/pharmacy #[id number], Partial fill upon patient request if the prescri... Start Date: 01/11/21 Stop Date: 02/12/21 Status: Orderedmultivitamin Multiple Vitamins oral tablet 1 tablet, By Mouth, Daily, # 30 tablet, 0 Refills, Maintenance, 03/18/20 17:20:00 EDT, Tablet, [facility]/pharmacy #[id number], 1 tablet By Mouth Daily,x30 days, 155, cm, 03/18/20 16:03:00 EDT, Height, 93.3, kg, 03/17/20 6:29:00 EDT, Dry Weight Start Date: 03/18/20 Stop Date: 04/17/20 Status: Orderedsimethicone 80 mg oral tablet 1 tablet = 80 mg, Chew, 3 times a day after meals and bedtime, PRN for gas, # 60 tablet, 0 Refills, Acute 02/12/21 8:49:00 EDT, 01/11/21 8:47:00 EDT, Tablet, [facility]/pharmacy #[id number], Partial fill upon patient request if the prescription is for a schedule I... Start Date: 01/11/21 Stop Date: 02/12/21 Status: OrderedSingulair 10 mg oral tablet 10 mg, 1, tablet, By Mouth, Daily, # 30 tablet, Refills 0, Tot. Refills 0, Maintenance, 03/18/20 17:23:00 EDT, Route to Pharmacy Electronically, [facility]/pharmacy #[id number], 155, cm, 03/18/20 16:03:00 EDT, [...] disorder(Confirmed) Active Hepatitis C(Confirmed) Active 1now on [id number] methadone Social History Social History Type Response Smoking Status Former smoker, quit more bridgette n 30 days ago; Number of years: 0.7; Started at age: 29; Stopped at age: 30; entered on: 09/01/20 Sex
--- OUTSIDE RECORDS SUMMARY | 2022-05-12 17:30 | XMS_ITS | Continuity of Care Document ---
:1990 Author Organization [facility] Address [address] [place] [id number]- Care Team Providers Name Role Phone Dirk GAYLE, Aj Hall Primary Care Physician Encounter [facility] Date(s): 11/11/20 - 12/11/20 [facility] [address] [place] [id number] Allergies, Adverse Reactions, Alerts Substance Reaction Severity Status NKA Active Immunizations Given and Recorded Vaccine Date Status Refusal Reason pneumococcal 23-valent vaccine1 12/19/17 Given Not Given Vaccine Date Status Refusal Reason influenza virus vaccine, inactivated2 09/04/19 Not Given Patient Refuses 1Early/Late Reason: Med Not [id number] Comment: i was just sick, I dont want it Medications AirDuo RespiClick 232 mcg-14 mcg/inh inhalation powder 1, inhalation, Inhalation, 2 times a day, rinse mouth and throat after use, # 1 each, Refills 0, Tot. Refills 0, Maintenance, 03/18/20 17:23:00 EDT, Powder, Route to Pharmacy Electronically, [id number], [facility]/pharmacy #[id number], 15... Start Date: 03/18/20 Stop Date: 04/17/20 Status: Orderedalbuterol CFC free 90 mcg/inh inhalation aerosol 2, puffs, Inhalation, 4 times a day, PRN, # 25 Gm, Refills 0, Tot. Refills 0, Maintenance, 03/18/20 17:24:00 EDT, Aerosol, Route to Pharmacy Electronically, [id number], [facility]/pharmacy #[id number], 155, cm, 03/18/20 16:03:00 EDT, [...] Refills, Maintenance, 03/18/20 17:24:00 EDT, XL Tablet, [facility]/pharmacy #[id number], 155, cm, 03/18/20 16:03:00 EDT, Height, 93.3, kg, 03/17/20 6:29:00 EDT, Dry Weight Start Date: 03/18/20 Stop Date: 04/17/20 Status: Orderedcetirizine 10 mg oral tablet 1 tablet = 10 mg, By Mouth, Daily, # 30 tablet, 0 Refills, Maintenance, 03/18/20 17:24:00 EDT, Tablet, [facility]/pharmacy #[id number], 155, cm, 03/18/20 16:03:00 EDT, Height, 93.3, kg, 03/17/20 6:29:00 EDT, Dry Weight Start Date: 03/18/20 Status: OrderedcloNIDine 0.1 mg oral tablet 0.1 mg, By Mouth, 3 times a day, PRN, # 30 tablet, Refills 0, Tot. Refills 0, Maintenance, Anxiety, 03/18/20 17:21:00 EDT, Route to Pharmacy Electronically, [facility]/pharmacy #[id number], 155, cm, 03/18/20 16:03:00 EDT, Height, 93.3, kg, 03/17/20 6:29:00 EDT, Start Date: 03/18/20 Stop Date: 04/17/20 Status: Orderedfolic acid 1 mg oral tablet 1 mg, 1, tablet, By Mouth, Daily, # 30 tablet, Refills 0, Tot. Refills 0, Maintenance, 03/18/20 17:21:00 EDT, Route to Pharmacy Electronically, [facility]/pharmacy #[id number], 155, cm, 03/18/20 16:03:00 EDT, Height, 93.3, kg, 03/17/20 6:29:00 EDT, Dry Weight Start Date: 03/18/20 Status: Orderedmultivitamin Multiple Vitamins oral tablet 1 tablet, By Mouth, Daily, # 30 tablet, 0 Refills, Maintenance, 03/18/20 17:20:00 EDT, Tablet, [facility]/pharmacy #[id number], 1 tablet By Mouth Daily,x30 days, 155, cm, 03/18/20 16:03:00 EDT, Height, 93.3, kg, 03/17/20 6:29:00 EDT, Dry Weight Start Date: 03/18/20 Stop Date: 04/17/20 Status: OrderedSingulair 10 mg oral tablet 10 mg, 1, tablet, By Mouth, Daily, # 30 tablet, Refills 0, Tot. Refills 0, Maintenance, 03/18/20 17:23:00 EDT, Route to Pharmacy Electronically, [facility]/pharmacy #[id number], 155, cm, 03/18/20 16:03:00 EDT, Height, 93.3, kg, 03/17/20 6:29:00 EDT, Dry Weight Start Date: 03/18/20 Status: Ordered Problem List Condition Effective Dates Status Health Status Informant Asthma(Confirmed) Active Anxiety and depression(Confirmed) Active Obesity during (Confirmed) Active Opioid use disorder(Confirmed)1, 2 Active Rh alloimmunization, maternal, Active antepartum (anti-c)(Confirmed) Seizure disorder(Confirmed) Active Hepatitis C(Confirmed) Active 1now on [id number] methadone Social History Social History Type Response Smoking Status Former smoker, quit more bridgette n 30 days ago; Number of years: 0.7; Started at age: 29; Stopped at age: 30; entered on: 09/01/20 Sex
--- OUTSIDE RECORDS SUMMARY | 2022-05-12 17:30 | XMS_ITS | Continuity of Care Document ---
:1990 Author Organization [facility] Address [address] [place] [address]- Care Team Providers Name Role Phone Dirk GAYLE, Aj Hall Primary Care Physician Encounter [facility] Date(s): 02/27/20 - 02/27/[address] [id number]- [facility] Encounter Diagnosis Depression with anxiety (Discharge Diagnosis) - 02/27/20 Asthma (Discharge Diagnosis) - 02/27/20 Hepatitis C, acute (Discharge Diagnosis) - 02/27/20 Urinary tract infection (Final) - 02/27/20 Discharge Disposition: A-D/C Home Attending Physician: Sharon Lora MD Admitting Physician: Sharon Lora MD Referring Physician: Not on Staff, Referring MD Allergies, Adverse Reactions, Alerts Substance Reaction Severity Status NKA Active Immunizations Given and Recorded Vaccine Date Status Refusal Reason pneumococcal 23-valent vaccine1 12/19/17 Given Not Given Vaccine Date Status Refusal Reason influenza virus vaccine, inactivated2 09/04/19 Not Given Patient Refuses 1Early/Late Reason: Med Not [id number] Comment: i was just sick, I dont [...] 09/03/19 19:10:00 EDT Start Date: 09/03/19 Status: OrderedClonidine 0 Refills, Maintenance, 02/27/20 17:39:00 EDT Start Date: 02/27/20 Status: Orderedgabapentin 300 mg oral capsule 300 mg, 1, capsule, By Mouth, 3 times a day, Maintenance, 09/03/19 19:01:00 EDT Start Date: 09/03/19 Status: OrderedKeflex monohydrate 500 mg oral capsule 1 capsule = 500 mg, By Mouth, 4 times a day, for 7 days, # 28 capsule, 0 Refills, Acute 03/05/20 20:02:00 EDT, 02/27/20 20:02:00 EDT, Capsule, [id number], 156, cm, 09/04/19 11:45:00 EDT, Height, 80, kg, 09/03/19 22:57:00 EDT, Dry Weight Start Date: 02/27/20 Stop Date: 03/05/20 Status: OrderedMethadone = 50 mg, By Mouth, Daily, 0 Refills, Maintenance, 09/03/19 19:11:00 EDT, Partial fill upon patient request Start Date: 09/03/19 Status: OrderedTrazodone By Mouth, 2 times a day, 0 Refills, Maintenance, 02/27/20 17:39:00 EDT Start Date: 02/27/20 Status: OrderedVistaril Capsule Intramuscular, Every 4 hours, 0 Refills, Maintenance, 02/27/20 17:39:00 EDT Start Date: 02/27/20 Status: Ordered Problem List Condition Effective Dates Status Health Status Informant Asthma(Confirmed) Active Diagnosis Diagnosis Type Effective Dates Health Clinical Infor mant Status Service Depression with Discharge 02/27/20 anxiety Diagnosis Asthma Discharge 02/27/20 Diagnosis Hepatitis C, Discharge 02/27/20 acute Diagnosis Vital Signs Most recent to oldest [Reference 1 2 3 Range]: Oxygen Saturation [94-100 %] 100 % 100 % 98 % (02/27/20 8:15 PM) (02/27/20 6:39 PM) (02/27/20 6:11 P M) Pulse Rate [55-90 bpm] 60 bpm 65 bpm 66 bpm (02/27/20 8:15 PM) (02/27/20 6:39 PM) (02/27/20 6:11 P M) Blood Pressure [90-138/55-84 mm 181/89 mm Hg 1 169/59 mm Hg 126/94 mm Hg Hg] *H* *H* (02/27/20 2:34 PM) (02/27/20 8:15 PM) (02/27/20 6:39 PM) Respiratory Rate [16-30 br/min] 18 br/min 21 br/min 20 br/min (02/27/20 8:15 PM) (02/27/20 6:39 PM) (02/27/20 6:11 P M) Temperature [96.8-100.4 DegF] 98.7 DegF 98.5 DegF 98 .5 DegF (02/27/20 8:15 PM) (02/27/20 6:11 PM) (02/27/20 2:34 P M) Liters per Minute 0 L/min (02/27/20 12:19 PM) Mode of Delivery (Oxygen) Room air Room air Room a ir (02/27/20 8:15 PM) (02/27/20 6:39 PM) (02/27/20 6:11 P M) Blood pressure sites Arm, left Arm, left Arm, left (02/27/20 8:15 PM) (02/27/20 6:39 PM) (02/27/20 6:11 P M) Temperature Route Oral Oral Oral (02/27/20 8:15 PM) (02/27/20 6:11 PM) (02/27/20 2:34 P M) 1Result Comment: blood pressure taken twice. made aware of blood pressure Social History Social History Type Response Smoking Status Never (less than 100 in life time) entered on: 02/27/20 Sex Female
--- OUTSIDE RECORDS SUMMARY | 2022-05-12 17:30 | XMS_ITS | Continuity of Care Document ---
:1990 Author Organization [facility] Address [address] [place] [phone]- Care Team Providers Name Role Phone Aj Cavazos MD Primary Care Physician Encounter [facility] [place] Date(s): 03/26/22 - 05/01/[address] [address]- Attending Physician: Mickie Ng MD Admitting Physician: Mickie Ng MD Referring Physician: Mickie Ng MD Allergies, Adverse Reactions, Alerts No Known Allergies Immunizations Given and Recorded Vaccine Date Status Refusal Reason pneumococcal 23-valent vaccine1 12/19/17 Given Not Given Vaccine Date Status Refusal Reason influenza virus vaccine, inactivated2 09/04/19 Not Given Patient Refuses 1Early/Late Reason: Med Not [id number] Comment: i was just sick, I dont want it Medications AirDuo RespiClick 232 mcg-14 mcg/inh inhalation powder 1, inhalation, Inhalation, 2 times a day, rinse mouth and throat after use, # 1 each, Refills 0, Tot. Refills 0, Maintenance, 03/18/20 17:23:00 EDT, Powder, Route to Pharmacy Electronically, [id number], [facility]/pharmacy #[id number], 15... Start Date: 03/18/20 Stop Date: 04/17/20 Status: Orderedalbuterol CFC free 90 mcg/inh inhalation aerosol 2, puffs, Inhalation, 4 times a day, PRN, # 25 Gm, Refills 0, Tot. Refills 0, Maintenance, 03/18/20 17:24:00 EDT, Aerosol, Route to Pharmacy Electronically, [id number], [facility]/pharmacy #[id number], 155, cm, 03/18/20 16:03:00 EDT, Heig... Start Date: 03/18/20 Status: OrderedbuPROPion 300 mg/24 hours (XL) oral tablet, extended release 1 tablet = 300 mg, By Mouth, Daily, # 30 tablet, 0 Refills, Maintenance, 03/18/20 17:24:00 EDT, XL Tablet, [facility]/pharmacy #[id number], 155, cm, 03/18/20 16:03:00 EDT, Height, 93.3, kg, 03/17/20 6:29:00 EDT, Dry Weight Start Date: 03/18/20 Stop Date: 04/17/20 Status: Orderedcetirizine 10 mg oral tablet 1 tablet = 10 mg, By Mouth, Daily, # 30 tablet, 0 Refills, Maintenance, 03/18/20 17:24:00 EDT, Tablet, [facility]/pharmacy #[id number], 155, cm, 03/18/20 16:03:00 EDT, Height, 93.3, kg, 03/17/20 6:29:00 EDT, Dry Weight Start Date: 03/18/20 Status: OrderedColace sodium 100 mg oral capsule 100 mg, 1, capsule, By Mouth, 2 times a day, PRN, # 60 capsule, Refills 0, Tot. Refills 0, Maintenance, for constipation, 01/11/21 8:47:00 EDT, Route to Pharmacy Electronically, [facility]/pharmacy #[id number], Partial fill upon patient request if the prescription... Start Date: 01/11/21 Stop Date: 02/12/21 Status: Orderedfolic acid 1 mg oral tablet 1 mg, 1, tablet, By Mouth, Daily, # 30 tablet, Refills 0, Tot. Refills 0, Maintenance, 03/18/20 17:21:00 EDT, Route to Pharmacy Electronically, [facility]/pharmacy #[id number], 155, cm, 03/18/20 16:03:00 EDT, Height, 93.3, kg, 03/17/20 6:29:00 EDT, Dry Weight Start Date: 03/18/20 Status: Orderedmultivitamin Multiple Vitamins oral tablet 1 tablet, By Mouth, Daily, # 30 tablet, 0 Refills, Maintenance, 03/18/20 17:20:00 EDT, Tablet, [facility]/pharmacy #[id number], 1 tablet By Mouth Daily,x30 days, 155, cm, 03/18/20 16:03:00 EDT, Height, 93.3, kg, 03/17/20 6:29:00 EDT, Dry Weight Start Date: 03/18/20 Stop Date: 04/17/20 Status: OrderedSingulair 10 mg oral tablet 10 mg, 1, tablet, By Mouth, Daily, # 30 tablet, Refills 0, Tot. Refills 0, Maintenance, 03/18/20 17:23:00 EDT, Route to Pharmacy Electronically, [facility]/pharmacy #[id number], 155, cm, 03/18/20 16:03:00 EDT, Height, [...] tablet, 0 Refills,Maintenance, 05/28/21 20:32:00 EST, Tablet, [facility]/pharmacy #[id number], Partial fill upon patient request ifthe [...] Active Hepatitis C Confirmed Active 1now on uzmiytot1km methadone Social History Social History Type Response Tobacco Use: 4 or less cigarettes(le ss than 1/4 pack)/day in last 30 days. Sex Patient Care team information PersonnelName: Dirk GAYLE , Aj Hall Address: Address: [address] [place] [id number]
--- OUTSIDE RECORDS SUMMARY | 2022-05-12 17:30 | XMS_ITS | Continuity of Care Document ---
:1990 Author Organization [facility] Address [address] [place] [address]- Care Team Providers Name Role Phone Dirk GAYLE, Aj Hall Primary Care Physician Encounter [facility] Date(s): 12/14/20 - 12/16/[address] [address] Discharge Disposition: A-D/C Home Attending Physician: Michelet GAYLE, August Admitting Physician: Michelet GAYLE, August Referring Physician: Ladonna Nichols MD Allergies, Adverse Reactions, Alerts Substance Reaction Severity Status NKA Active Immunizations Given and Recorded Vaccine Date Status Refusal Reason pneumococcal 23-valent vaccine1 12/19/17 Given Not Given Vaccine Date Status Refusal Reason influenza virus vaccine, inactivated2 09/04/19 Not Given Patient Refuses 1Early/Late Reason: Med Not [id number] Comment: i was just sick, I dont want it Medications AirDuo RespiClick 232 mcg-14 mcg/inh inhalation powder 1, inhalation, Inhalation, 2 times a day, rinse mouth and throat after use, # 1 each, Refills 0, Tot. Refills 0, Maintenance, 03/18/20 17:23:00 EDT, Powder, Route to Pharmacy Electronically, [id number], [facility]/pharmacy #[id number], 15... Start Date: 03/18/20 Stop Date: 04/17/20 Status: Orderedalbuterol CFC free 90 mcg/inh inhalation aerosol 2, puffs, Inhalation, 4 times a day, PRN, # 25 Gm, Refills 0, Tot. Refills 0, Maintenance, 03/18/20 17:24:00 EDT, Aerosol, Route to Pharmacy Electronically, [id number], [facility]/pharmacy #[id number], 155, cm, 03/18/20 16:03:00 EDT, [place]... Start Date: 03/18/20 Status: OrderedbuPROPion 300 mg/24 hours (XL) oral tablet, extended release 1 tablet = 300 mg, By Mouth, Daily, # 30 tablet, 0 Refills, Maintenance, 03/18/20 17:24:00 EDT, XL Tablet, [facility]/pharmacy #[id number], 155, cm, 03/18/20 16:03:00 EDT, Height, 93.3, kg, 03/17/20 6:29:00 EDT, Dry Weight Start Date: 03/18/20 Stop Date: 04/17/20 Status: Orderedcetirizine 10 mg oral tablet 1 tablet = 10 mg, By Mouth, Daily, # 30 tablet, 0 Refills, Maintenance, 03/18/20 17:24:00 EDT, Tablet, [facility]/pharmacy #[id number], 155, cm, 03/18/20 16:03:00 EDT, Height, 93.3, kg, 03/17/20 6:29:00 EDT, Dry Weight Start Date: 03/18/20 Status: Orderedfolic acid 1 mg oral tablet 1 mg, 1, tablet, By Mouth, Daily, # 30 tablet, Refills 0, Tot. Refills 0, Maintenance, 03/18/20 17:21:00 EDT, Route to Pharmacy Electronically, [facility]/pharmacy #[id number], 155, cm, 03/18/20 16:03:00 EDT, Height, 93.3, kg, 03/17/20 6:29:00 EDT, Dry Weight Start Date: 03/18/20 Status: Orderedmultivitamin Multiple Vitamins oral tablet 1 tablet, By Mouth, Daily, # 30 tablet, 0 Refills, Maintenance, 03/18/20 17:20:00 EDT, Tablet, [facility]/pharmacy #[id number], 1 tablet By Mouth Daily,x30 days, 155, cm, 03/18/20 16:03:00 EDT, Height, 93.3, kg, 03/17/20 6:29:00 EDT, Dry Weight Start Date: 03/18/20 Stop Date: 04/17/20 Status: OrderedSingulair 10 mg oral tablet 10 mg, 1, tablet, By Mouth, Daily, # 30 tablet, Refills 0, Tot. Refills 0, Maintenance, 03/18/20 17:23:00 EDT, Route to Pharmacy Electronically, [facility]/pharmacy #[id number], 155, cm, 03/18/20 16:03:00 EDT, Height, [...] disorder(Confirmed) Active Hepatitis C(Confirmed) Active 1now on auiqkhdq7hl methadone Vital Signs Most recent to oldest 1 2 3 [Reference Range]: Height 154.94 cm 154.94 cm (12/16/20 10:00 AM) (12/14/20 4:07 PM) Weight 104.09 kg (12/14/20 4:07 PM) Oxygen Saturation [94-100 %] 97 % 100 % 95 % (12/15/20 9:10 PM) (12/15/20 4:12 PM) (12/15/20 12: 08 PM) Pulse Rate [55-90 bpm] 78 bpm 79 bpm (12/16/20 10:00 AM) (12/14/20 4:07 PM) Body Mass Index [18.5-24.99] 43.36 *>HHI* (12/14/20 4:07 PM) Blood Pressure [90-138/55-84 126/63 mm Hg 129/71 mm Hg 121 /68 mm Hg mm Hg] (12/16/20 10:00 AM) (12/16/20 6:00 AM) (12/15/20 9: 10 PM) Respiratory Rate [16-30 20 br/min 17 br/min 18 br/mi n br/min] (12/16/20 10:00 AM) (12/15/20 4:12 PM) (12/15/20 8: 17 AM) Temperature [96.8-100.4 97.9 DegF 98.5 DegF 97.6 Deg F DegF] (12/16/20 10:00 AM) (12/16/20 6:00 AM) (12/15/20 4: 12 PM) Mode of Delivery (Oxygen) Room air Room air Room a ir (12/15/20 4:12 PM) (12/15/20 12:08 PM) (12/15/20 8: 17 AM) Blood pressure sites Arm, right Arm, right Arm, right (12/16/20 10:00 AM) (12/15/20 4:12 PM) (12/15/20 12 :08 PM) Temperature Route Oral Oral Oral (12/16/20 10:00 AM) (12/15/20 4:12 PM) (12/15/20 12 :08 PM) Dry Weight 104.09 kg (12/14/20 4:07 PM) Social History Social History Type Response Smoking Status Former smoker, quit more bridgette n 30 days ago; Number of years: 0.7; Started at age: 29; Stopped at age: 30; entered on: 09/01/20 Sex
--- OUTSIDE RECORDS SUMMARY | 2022-05-12 17:30 | XMS_ITS | Continuity of Care Document ---
:1990 Author Organization [facility] Address [address] [place] [address]- Care Team Providers Name Role Phone Dirk GAYLE, Aj Hall Primary Care Physician [place] [facility] [place] - 05/11/22 [facility] [address] [place] [address]- Attending Physician: Viola Crabtree Admitting Physician: Viola Crabtree Referring Physician: AdmtrViola Allergies, Adverse Reactions, Alerts No Known Allergies Immunizations Given and Recorded Vaccine Date Status Refusal Reason pneumococcal 23-valent vaccine1 12/19/17 Given Not Given Vaccine Date Status Refusal Reason influenza virus vaccine, inactivated2 09/04/19 Not Given Patient Refuses 1Early/Late Reason: Med Not [id number] Comment: i was just sick, I dont want it Medications AirDuo RespiClick 232 mcg-14 mcg/inh inhalation powder 1, inhalation, Inhalation, 2 times a day, rinse mouth and throat after use, # 1 each, Refills 0, Tot. Refills 0, Maintenance, 03/18/20 17:23:00 EDT, Powder, Route to Pharmacy Electronically, [id number], [facility]/pharmacy #[id number], 15... Start Date: 03/18/20 Stop Date: 04/17/20 Status: Orderedalbuterol CFC free 90 mcg/inh inhalation aerosol 2, puffs, Inhalation, 4 times a day, PRN, # 25 Gm, Refills 0, Tot. Refills 0, Maintenance, 03/18/20 17:24:00 EDT, Aerosol, Route to Pharmacy Electronically, [id number], [facility]/pharmacy #[id number], 155, cm, 03/18/20 16:03:00 EDT, Heig... Start Date: 03/18/20 Status: OrderedbuPROPion 300 mg/24 hours (XL) oral tablet, extended release 1 tablet = 300 mg, By Mouth, Daily, # 30 tablet, 0 Refills, Maintenance, 03/18/20 17:24:00 EDT, XL Tablet, [facility]/pharmacy #[id number], 155, cm, 03/18/20 16:03:00 EDT, Height, 93.3, kg, 03/17/20 6:29:00 EDT, Dry Weight Start Date: 03/18/20 Stop Date: 04/17/20 Status: Orderedcetirizine 10 mg oral tablet 1 tablet = 10 mg, By Mouth, Daily, # 30 tablet, 0 Refills, Maintenance, 03/18/20 17:24:00 EDT, Tablet, [facility]/pharmacy #[id number], 155, cm, 03/18/20 16:03:00 EDT, Height, 93.3, kg, 03/17/20 6:29:00 EDT, Dry Weight Start Date: 03/18/20 Status: OrderedColace sodium 100 mg oral capsule 100 mg, 1, capsule, By Mouth, 2 times a day, PRN, # 60 capsule, Refills 0, Tot. Refills 0, Maintenance, for constipation, 01/11/21 8:47:00 EDT, [id number] Partial fill upon patient request if the prescription... Start Date: 01/11/21 Stop Date: 02/12/21 Status: Orderedfolic acid 1 mg oral tablet 1 mg, 1, tablet, By Mouth, Daily, # 30 tablet, Refills 0, Tot. Refills 0, Maintenance, 03/18/20 17:21:00 EDT, Route to Pharmacy Electronically, [facility]/pharmacy #[id number], 155, cm, 03/18/20 16:03:00 EDT, Height, 93.3, kg, 03/17/20 6:29:00 EDT, Dry Weight Start Date: 03/18/20 Status: Orderedmultivitamin Multiple Vitamins oral tablet 1 tablet, By Mouth, Daily, # 30 tablet, 0 Refills, Maintenance, 03/18/20 17:20:00 EDT, Tablet, [facility]/pharmacy #[id number], 1 tablet By Mouth Daily,x30 days, 155, cm, 03/18/20 16:03:00 EDT, Height, 93.3, kg, 03/17/20 6:29:00 EDT, Dry Weight Start Date: 03/18/20 Stop Date: 04/17/20 Status: OrderedSingulair 10 mg oral tablet 10 mg, 1, tablet, By Mouth, Daily, # 30 tablet, Refills 0, Tot. Refills 0, Maintenance, 03/18/20 17:23:00 EDT, Route to Pharmacy Electronically, [facility]/pharmacy #[id number], 155, cm, 03/18/20 16:03:00 [...] tablet, 0 Refills,Maintenance, 05/28/21 20:32:00 EST, Tablet, [facility]/pharmacy #[id number], Partial fill upon patient request ifthe [...] Active Hepatitis C Confirmed Active 1now on [id number] methadone Social History Social History Type Response Tobacco Use: 4 or less cigarettes(le ss than 1/4 pack)/day in last 30 days. Sex Note Event Display: Non Lab Results Authored Date: [id number] Patient Care team information Care Team PersonnelName: Sarahi Oneal RN Position: [facility] RN Member Role: Primary Care Nurse Name: Aj Cavazos MD Position: S Outreach Member Role: PCP Address: Address: [address] [place] [address]- Name: Belinda Mercado RN Position: S RN Member Role: Primary Care Nurse Name: Loretta Fall RN Position: [facility] RN Member Role: Primary Care Nurse Name: Denzel Enriquez RN Position: [facility] RN Supv Member Role: Primary Care Nurse Care Team Related PersonsName: JUANA SALAS Address: [employer] Address: home [address] [place] [address] [place] Name: GENE DANG Address: home [address] [place] [address] Name: ALMA DANG Address: home [address] [place] [address]
--- OUTSIDE RECORDS SUMMARY | 2022-05-12 17:30 | XMS_ITS | Continuity of Care Document ---
:1990 Author Organization [facility] Address [address] [place] [address]- Care Team Providers Name Role Phone Dirk GAYLE, Aj Hall Primary Care Physician Encounter [facility] Date(s): 01/11/21 - 02/10/[address] [address]- Allergies, Adverse Reactions, Alerts Substance Reaction Severity Status NKA Active Immunizations Given and Recorded Vaccine Date Status Refusal Reason pneumococcal 23-valent vaccine1 12/19/17 Given Not Given Vaccine Date Status Refusal Reason influenza virus vaccine, inactivated2 09/04/19 Not Given Patient Refuses 1Early/Late Reason: Med Not [id number] Comment: i was just sick, I dont want it Medications AirDuo RespiClick 232 mcg-14 mcg/inh inhalation powder 1, inhalation, Inhalation, 2 times a day, rinse mouth and throat after use, # 1 each, Refills 0, Tot. Refills 0, Maintenance, 03/18/20 17:23:00 EDT, Powder, Route to Pharmacy Electronically, [id number], [facility]/pharmacy #[id number], 15... Start Date: 03/18/20 Stop Date: 04/17/20 Status: Orderedalbuterol CFC free 90 mcg/inh inhalation aerosol 2, puffs, Inhalation, 4 times a day, PRN, # 25 Gm, Refills 0, Tot. Refills 0, Maintenance, 03/18/20 17:24:00 EDT, Aerosol, Route to Pharmacy Electronically, [id number], [facility]/pharmacy #[id number], 155, cm, 03/18/20 16:03:00 EDT, Heig... Start Date: 03/18/20 Status: OrderedbuPROPion 300 mg/24 hours (XL) oral tablet, extended release 1 tablet = 300 mg, By Mouth, Daily, # 30 tablet, 0 Refills, Maintenance, 03/18/20 17:24:00 EDT, XL Tablet, [facility]/pharmacy #[id number], 155, cm, 03/18/20 16:03:00 EDT, Height, 93.3, kg, 03/17/20 6:29:00 EDT, Dry Weight Start Date: 03/18/20 Stop Date: 04/17/20 Status: Orderedcetirizine 10 mg oral tablet 1 tablet = 10 mg, By Mouth, Daily, # 30 tablet, 0 Refills, Maintenance, 03/18/20 17:24:00 EDT, Tablet, [facility]/pharmacy #[id number], 155, cm, 03/18/20 16:03:00 EDT, Height, 93.3, kg, 03/17/20 6:29:00 EDT, Dry Weight Start Date: 03/18/20 Status: OrderedColace sodium 100 mg oral capsule 100 mg, 1, capsule, By Mouth, 2 times a day, PRN, # 60 capsule, Refills 0, Tot. Refills 0, Maintenance, for constipation, 01/11/21 8:47:00 EDT, Route to Pharmacy Electronically, [facility]/pharmacy #[id number], Partial fill upon patient request if the prescription... Start Date: 01/11/21 Stop Date: 02/12/21 Status: OrderedDilaudid 2 mg oral tablet 1 tablet = 2 mg, By Mouth, Every 4 hours, PRN as needed for pain, # 18 tablet, 0 Refills, Acute 02/12/21 8:49:00 EDT, 01/11/21 8:48:00 EDT, Tablet, [facility]/pharmacy #[id number], Partial fill upon patient requestif the prescription is for a schedule II opioid d... Start Date: 01/11/21 Stop Date: 02/12/21 Status: Orderedfolic acid 1 mg oral tablet 1 mg, 1, tablet, By Mouth, Daily, # 30 tablet, Refills 0, Tot. Refills 0, Maintenance, 03/18/20 17:21:00 EDT, Route to Pharmacy Electronically, [facility]/pharmacy #[id number], 155, cm, 03/18/20 16:03:00 EDT, Height, 93.3, kg, 03/17/20 6:29:00 EDT, Dry Weight Start Date: 03/18/20 Status: Orderedibuprofen 600 mg oral tablet 600 mg, 1, tablet, By Mouth, 4 times a day, PRN, # 40 tablet, Refills 0, Tot. Refills 0, Acute 02/12/21 8:48:00 EDT, for pain, 01/11/21 8:47:00 EDT, Route to Pharmacy Electronically, [facility]/pharmacy #[id number], Partial fill upon patient request if the prescri... Start Date: 01/11/21 Stop Date: 02/12/21 Status: Orderedmultivitamin Multiple Vitamins oral tablet 1 tablet, By Mouth, Daily, # 30 tablet, 0 Refills, Maintenance, 03/18/20 17:20:00 EDT, Tablet, [facility]/pharmacy #[id number], 1 tablet By Mouth Daily,x30 days, 155, cm, 03/18/20 16:03:00 EDT, Height, 93.3, kg, 03/17/20 6:29:00 EDT, Dry Weight Start Date: 03/18/20 Stop Date: 04/17/20 Status: Orderedsimethicone 80 mg oral tablet 1 tablet = 80 mg, Chew, 3 times a day after meals and bedtime, PRN for gas, # 60 tablet, 0 Refills, Acute 02/12/21 8:49:00 EDT, 01/11/21 8:47:00 EDT, Tablet, [facility]/pharmacy #[id number], Partial fill upon patient request if the prescription is for a schedule I... Start Date: 01/11/21 Stop Date: 02/12/21 Status: OrderedSingulair 10 mg oral tablet 10 mg, 1, tablet, By Mouth, Daily, # 30 tablet, Refills 0, Tot. Refills 0, Maintenance, 03/18/20 17:23:00 EDT, Route to Pharmacy Electronically, [facility]/pharmacy #[id number], 155, cm, 03/18/20 16:03:00 EDT, [...] disorder(Confirmed) Active Hepatitis C(Confirmed) Active 1now on kezjxuxz6ml methadone Social History Social History Type Response Smoking Status Former smoker, quit more bridgette n 30 days ago; Number of years: 0.7; Started at age: 29; Stopped at age: 30; entered on: 09/01/20 Sex
--- OUTSIDE RECORDS SUMMARY | 2022-05-12 17:30 | XMS_ITS | Continuity of Care Document ---
:1990 Author Organization [facility] Address [address] [place] [address]- Care Team Providers Name Role Phone Dirk GAYLE, Aj Hall Primary Care Physician [place] [facility] [place]/20 [facility] [address] [place] [address] Allergies, Adverse Reactions, Alerts Substance Reaction Severity Status NKA Active Immunizations Given and Recorded Vaccine Date Status Refusal Reason pneumococcal 23-valent vaccine1 12/19/17 Given Not Given Vaccine Date Status Refusal Reason influenza virus vaccine, inactivated2 09/04/19 Not Given Patient Refuses 1Early/Late Reason: Med Not [id number] Comment: i was just sick, I dont want it Medications AirDuo RespiClick 232 mcg-14 mcg/inh inhalation powder 1, inhalation, Inhalation, 2 times a day, rinse mouth and throat after use, # 1 each, Refills 0, Tot. Refills 0, Maintenance, 03/18/20 17:23:00 EDT, Powder, Route to Pharmacy Electronically, [id number], [facility]/pharmacy #[id number], 15... Start Date: 03/18/20 Stop Date: 04/17/20 Status: Orderedalbuterol CFC free 90 mcg/inh inhalation aerosol 2, puffs, Inhalation, 4 times a day, PRN, # 25 Gm, Refills 0, Tot. Refills 0, Maintenance, 03/18/20 17:24:00 EDT, Aerosol, Route to Pharmacy Electronically, [id number], [facility]/pharmacy #[id number], 155, cm, 03/18/20 16:03:00 [...] Refills, Maintenance, 03/18/20 17:24:00 EDT, XL Tablet, [facility]/pharmacy #[id number], 155, cm, 03/18/20 16:03:00 EDT, Height, 93.3, kg, 03/17/20 6:29:00 EDT, Dry Weight Start Date: 03/18/20 Stop Date: 04/17/20 Status: Orderedcetirizine 10 mg oral tablet 1 tablet = 10 mg, By Mouth, Daily, # 30 tablet, 0 Refills, Maintenance, 03/18/20 17:24:00 EDT, Tablet, [facility]/pharmacy #[id number], 155, cm, 03/18/20 16:03:00 EDT, Height, 93.3, kg, 03/17/20 6:29:00 EDT, Dry Weight Start Date: 03/18/20 Status: OrderedcloNIDine 0.1 mg oral tablet 0.1 mg, By Mouth, 3 times a day, PRN, # 30 tablet, Refills 0, Tot. Refills 0, Maintenance, Anxiety, 03/18/20 17:21:00 EDT, Route to Pharmacy Electronically, [facility]/pharmacy #[id number], 155, cm, 03/18/20 16:03:00 EDT, Height, 93.3, kg, 03/17/20 6:29:00 EDT, Start Date: 03/18/20 Stop Date: 04/17/20 Status: Orderedfolic acid 1 mg oral tablet 1 mg, 1, tablet, By Mouth, Daily, # 30 tablet, Refills 0, Tot. Refills 0, Maintenance, 03/18/20 17:21:00 EDT, Route to Pharmacy Electronically, [facility]/pharmacy #[id number], 155, cm, 03/18/20 16:03:00 EDT, Height, 93.3, kg, 03/17/20 6:29:00 EDT, Dry Weight Start Date: 03/18/20 Status: Orderedmultivitamin Multiple Vitamins oral tablet 1 tablet, By Mouth, Daily, # 30 tablet, 0 Refills, Maintenance, 03/18/20 17:20:00 EDT, Tablet, [facility]/pharmacy #[id number], 1 tablet By Mouth Daily,x30 days, 155, cm, 03/18/20 16:03:00 EDT, Height, 93.3, kg, 03/17/20 6:29:00 EDT, Dry Weight Start Date: 03/18/20 Stop Date: 04/17/20 Status: OrderedSingulair 10 mg oral tablet 10 mg, 1, tablet, By Mouth, Daily, # 30 tablet, Refills 0, Tot. Refills 0, Maintenance, 03/18/20 17:23:00 EDT, Route to Pharmacy Electronically, [facility]/pharmacy #[id number], 155, cm, 03/18/20 16:03:00 EDT, Height, 93.3, kg, 03/17/20 6:29:00 EDT, Dry Weight Start Date: 03/18/20 Status: Ordered Problem List Condition Effective Dates Status Health Status Informant Asthma(Confirmed) Active Anxiety and depression(Confirmed) Active Obesity during (Confirmed) Active Opioid use disorder(Confirmed)1, 2 Active Rh alloimmunization, maternal, Active antepartum (anti-c)(Confirmed) Seizure disorder(Confirmed) Active Hepatitis C(Confirmed) Active 1now on twxqhwrb2gb methadone Social History Social History Type Response Smoking Status Former smoker, quit more bridgette n 30 days ago; Number of years: 0.7; Started at age: 29; Stopped at age: 30; entered on: 09/01/20 Sex
--- OUTSIDE RECORDS SUMMARY | 2022-05-12 17:30 | XMS_ITS | Continuity of Care Document ---
:1990 Author Organization [facility] Address [address] [place] [id number]- Care Team Providers Name Role Phone Dirk GAYLE, Aj Hall Primary Care Physician [place] [facility] [place]): 10/01/20 - 11/20/20 [facility] [address] [place] [id number] Attending Physician: Alvarez Curran MD Admitting Physician: Alvarez Curran MD Referring Physician: Carmen Verma MD Allergies, Adverse Reactions, Alerts Substance Reaction Severity Status NKA Active Immunizations Given and Recorded Vaccine Date Status Refusal Reason pneumococcal 23-valent vaccine1 12/19/17 Given Not Given Vaccine Date Status Refusal Reason influenza virus vaccine, inactivated2 09/04/19 Not Given Patient Refuses 1Early/Late Reason: Med Not [id number] Comment: i was just sick, I dont want it Medications AirDuo RespiClick 232 mcg-14 mcg/inh inhalation powder 1, inhalation, Inhalation, 2 times a day, rinse mouth and throat after use, # 1 each, Refills 0, Tot. Refills 0, Maintenance, 03/18/20 17:23:00 EDT, Powder, Route to Pharmacy Electronically, [id number], [facility]/pharmacy #[id number], 15... Start Date: 03/18/20 Stop Date: 04/17/20 Status: Orderedalbuterol CFC free 90 mcg/inh inhalation aerosol 2, puffs, Inhalation, 4 times a day, PRN, # 25 Gm, Refills 0, Tot. Refills 0, Maintenance, 03/18/20 17:24:00 EDT, Aerosol, Route to Pharmacy Electronically, [id number], [facility]/pharmacy #[id number], 155, cm, 03/18/20 16:03:00 EDT, Amadou [...] 03/18/20 17:24:00 EDT, XL Tablet, [facility]/pharmacy #[id number], 155, cm, 03/18/20 16:03:00 EDT, Height, 93.3, kg, 03/17/20 6:29:00 EDT, Dry Weight Start Date: 03/18/20 Stop Date: 04/17/20 Status: Orderedcetirizine 10 mg oral tablet 1 tablet = 10 mg, By Mouth, Daily, # 30 tablet, 0 Refills, Maintenance, 03/18/20 17:24:00 EDT, Tablet, [facility]/pharmacy #[id number], 155, cm, 03/18/20 16:03:00 EDT, Height, 93.3, kg, 03/17/20 6:29:00 EDT, Dry Weight Start Date: 03/18/20 Status: OrderedcloNIDine 0.1 mg oral tablet 0.1 mg, By Mouth, 3 times a day, PRN, # 30 tablet, Refills 0, Tot. Refills 0, Maintenance, Anxiety, 03/18/20 17:21:00 EDT, Route to Pharmacy Electronically, [facility]/pharmacy #[id number], 155, cm, 03/18/20 16:03:00 EDT, Height, 93.3, kg, 03/17/20 6:29:00 EDT, Start Date: 03/18/20 Stop Date: 04/17/20 Status: Orderedfolic acid 1 mg oral tablet 1 mg, 1, tablet, By Mouth, Daily, # 30 tablet, Refills 0, Tot. Refills 0, Maintenance, 03/18/20 17:21:00 EDT, Route to Pharmacy Electronically, [facility]/pharmacy #[id number], 155, cm, 03/18/20 16:03:00 EDT, Height, 93.3, kg, 03/17/20 6:29:00 EDT, Dry Weight Start Date: 03/18/20 Status: Orderedmultivitamin Multiple Vitamins oral tablet 1 tablet, By Mouth, Daily, # 30 tablet, 0 Refills, Maintenance, 03/18/20 17:20:00 EDT, Tablet, [facility]/pharmacy #[id number], 1 tablet By Mouth Daily,x30 days, 155, cm, 03/18/20 16:03:00 EDT, Height, 93.3, kg, 03/17/20 6:29:00 EDT, Dry Weight Start Date: 03/18/20 Stop Date: 04/17/20 Status: OrderedSingulair 10 mg oral tablet 10 mg, 1, tablet, By Mouth, Daily, # 30 tablet, Refills 0, Tot. Refills 0, Maintenance, 03/18/20 17:23:00 EDT, Route to Pharmacy Electronically, [facility]/pharmacy #[id number], 155, cm, 03/18/20 16:03:00 EDT, Height, 93.3, kg, 03/17/20 6:29:00 EDT, Dry Weight Start Date: 03/18/20 Status: Ordered Problem List Condition Effective Dates Status Health Status Informant Asthma(Confirmed) Active Anxiety and depression(Confirmed) Active Obesity during (Confirmed) Active Opioid use disorder(Confirmed)1, 2 Active Rh alloimmunization, maternal, Active antepartum (anti-c)(Confirmed) Seizure disorder(Confirmed) Active Hepatitis C(Confirmed) Active 1now on [id number] methadone Social History Social History Type Response Smoking Status Former smoker, quit more bridgette n 30 days ago; Number of years: 0.7; Started at age: 29; Stopped at age: 30; entered on: 09/01/20 Sex
--- OUTSIDE RECORDS SUMMARY | 2022-05-12 17:30 | XMS_ITS | Continuity of Care Document ---
:1990 Author Organization [facility] Address [address] [place] [id number]- Care Team Providers Name Role Phone Dirk GAYLE, Aj Hall Primary Care Physician Encounter [facility] Date(s): 03/16/22 - 04/15/22 [facility] [address] [place] [id number] Allergies, Adverse Reactions, Alerts No Known Allergies Immunizations Given and Recorded Vaccine Date Status Refusal Reason pneumococcal 23-valent vaccine1 12/19/17 Given Not Given Vaccine Date Status Refusal Reason influenza virus vaccine, inactivated2 09/04/19 Not Given Patient Refuses 1Early/Late Reason: Med Not [id number] Comment: i was just sick, I dont want it Medications AirDuo RespiClick 232 mcg-14 mcg/inh inhalation powder 1, inhalation, Inhalation, 2 times a day, rinse mouth and throat after use, # 1 each, Refills 0, Tot. Refills 0, Maintenance, 03/18/20 17:23:00 EDT, Powder, Route to Pharmacy Electronically, [id number], [facility]/pharmacy #[id number], 15... Start Date: 03/18/20 Stop Date: 04/17/20 Status: Orderedalbuterol CFC free 90 mcg/inh inhalation aerosol 2, puffs, Inhalation, 4 times a day, PRN, # 25 Gm, Refills 0, Tot. Refills 0, Maintenance, 03/18/20 17:24:00 EDT, Aerosol, Route to Pharmacy Electronically, [id number], [facility]/pharmacy #[id number], 155, cm, 03/18/20 16:03:00 EDT, Heig... Start Date: 03/18/20 Status: OrderedbuPROPion 300 mg/24 hours (XL) oral tablet, extended release 1 tablet = 300 mg, By Mouth, Daily, # 30 tablet, 0 Refills, Maintenance, 03/18/20 17:24:00 EDT, XL Tablet, [facility]/pharmacy #[id number], 155, cm, 03/18/20 16:03:00 EDT, Height, 93.3, kg, 03/17/20 6:29:00 EDT, Dry Weight Start Date: 03/18/20 Stop Date: 04/17/20 Status: Orderedcetirizine 10 mg oral tablet 1 tablet = 10 mg, By Mouth, Daily, # 30 tablet, 0 Refills, Maintenance, 03/18/20 17:24:00 EDT, Tablet, [facility]/pharmacy #[id number], 155, cm, 03/18/20 16:03:00 EDT, Height, 93.3, kg, 03/17/20 6:29:00 EDT, Dry Weight Start Date: 03/18/20 Status: OrderedColace sodium 100 mg oral capsule 100 mg, 1, capsule, By Mouth, 2 times a day, PRN, # 60 capsule, Refills 0, Tot. Refills 0, Maintenance, for constipation, 01/11/21 8:47:00 EDT, Route to Pharmacy Electronically, [facility]/pharmacy #[id number], Partial fill upon patient request if the prescription... Start Date: 01/11/21 Stop Date: 02/12/21 Status: Orderedfolic acid 1 mg oral tablet 1 mg, 1, tablet, By Mouth, Daily, # 30 tablet, Refills 0, Tot. Refills 0, Maintenance, 03/18/20 17:21:00 EDT, Route to Pharmacy Electronically, [facility]/pharmacy #[id number], 155, cm, 03/18/20 16:03:00 EDT, Height, 93.3, kg, 03/17/20 6:29:00 EDT, Dry Weight Start Date: 03/18/20 Status: Orderedmultivitamin Multiple Vitamins oral tablet 1 tablet, By Mouth, Daily, # 30 tablet, 0 Refills, Maintenance, 03/18/20 17:20:00 EDT, Tablet, [facility]/pharmacy #[id number], 1 tablet By Mouth Daily,x30 days, 155, cm, 03/18/20 16:03:00 EDT, Height, 93.3, kg, 03/17/20 6:29:00 EDT, Dry Weight Start Date: 03/18/20 Stop Date: 04/17/20 Status: OrderedSingulair 10 mg oral tablet 10 mg, 1, tablet, By Mouth, Daily, # 30 tablet, Refills 0, Tot. Refills 0, Maintenance, 03/18/20 17:23:00 EDT, Route to Pharmacy Electronically, [facility]/pharmacy #[id number], 155, cm, 03/18/20 16:03:00 [...] tablet, 0 Refills,Maintenance, 05/28/21 20:32:00 EST, Tablet, [facility]/pharmacy #[id number], Partial fill upon patient [...] Active Hepatitis C Confirmed Active 1now on [id number] methadone Social History Social History Type Response Tobacco Use: 4 or less cigarettes(le ss than 1/4 pack)/day in last 30 days. Sex Patient Care team information PersonnelName: Dirk GAYLE , Aj Hall Address: Address: [address] [place] [address]
--- OUTSIDE RECORDS SUMMARY | 2022-05-12 17:30 | XMS_ITS | Continuity of Care Document ---
:1990 Author Organization [facility] Address [address] [place] [id number]- Care Team Providers Name Role Phone Dirk GAYLE, Aj Hall Primary Care Physician Encounter [facility] Date(s): 11/18/20 - 12/18/20 [facility] [address] [place] [id number] Attending Physician: Viola Crabtree Admitting Physician: Viola Crabtree Referring Physician: AdmtrViola Allergies, Adverse Reactions, Alerts Substance Reaction Severity Status NKA Active Immunizations Given and Recorded Vaccine Date Status Refusal Reason pneumococcal 23-valent vaccine1 12/19/17 Given Not Given Vaccine Date Status Refusal Reason influenza virus vaccine, inactivated2 09/04/19 Not Given Patient Refuses 1Early/Late Reason: Med Not [id number] Comment: i was just sick, I dont want it Medications AirDuo RespiClick 232 mcg-14 mcg/inh inhalation powder 1, inhalation, Inhalation, 2 times a day, rinse mouth and throat after use, # 1 each, Refills 0, Tot. Refills 0, Maintenance, 03/18/20 17:23:00 EDT, Powder, Route to Pharmacy Electronically, [id number], [facility]/pharmacy #[id number], 15... Start Date: 03/18/20 Stop Date: 04/17/20 Status: Orderedalbuterol CFC free 90 mcg/inh inhalation aerosol 2, puffs, Inhalation, 4 times a day, PRN, # 25 Gm, Refills 0, Tot. Refills 0, Maintenance, 03/18/20 17:24:00 EDT, Aerosol, Route to Pharmacy Electronically, [id number], [facility]/pharmacy #[id number], 155, cm, 03/18/20 16:03:00 EDT, Heig... Start Date: 03/18/20 Status: OrderedbuPROPion 300 mg/24 hours (XL) oral tablet, extended release 1 tablet = 300 mg, By Mouth, Daily, # 30 tablet, 0 Refills, Maintenance, 03/18/20 17:24:00 EDT, XL Tablet, [facility]/pharmacy #[id number], 155, cm, 03/18/20 16:03:00 EDT, Height, 93.3, kg, 03/17/20 6:29:00 EDT, Dry Weight Start Date: 03/18/20 Stop Date: 04/17/20 Status: Orderedcetirizine 10 mg oral tablet 1 tablet = 10 mg, By Mouth, Daily, # 30 tablet, 0 Refills, Maintenance, 03/18/20 17:24:00 EDT, Tablet, [facility]/pharmacy #[id number], 155, cm, 03/18/20 16:03:00 EDT, Height, 93.3, kg, 03/17/20 6:29:00 EDT, Dry Weight Start Date: 03/18/20 Status: Orderedfolic acid 1 mg oral tablet 1 mg, 1, tablet, By Mouth, Daily, # 30 tablet, Refills 0, Tot. Refills 0, Maintenance, 03/18/20 17:21:00 EDT, Route to Pharmacy Electronically, [facility]/pharmacy #[id number], 155, cm, 03/18/20 16:03:00 EDT, Height, 93.3, kg, 03/17/20 6:29:00 EDT, Dry Weight Start Date: 03/18/20 Status: Orderedmultivitamin Multiple Vitamins oral tablet 1 tablet, By Mouth, Daily, # 30 tablet, 0 Refills, Maintenance, 03/18/20 17:20:00 EDT, Tablet, [facility]/pharmacy #[id number], 1 tablet By Mouth Daily,x30 days, 155, cm, 03/18/20 16:03:00 EDT, Height, 93.3, kg, 03/17/20 6:29:00 EDT, Dry Weight Start Date: 03/18/20 Stop Date: 04/17/20 Status: OrderedSingulair 10 mg oral tablet 10 mg, 1, tablet, By Mouth, Daily, # 30 tablet, Refills 0, Tot. Refills 0, Maintenance, 03/18/20 17:23:00 EDT, Route to Pharmacy Electronically, [facility]/pharmacy #[id number], 155, cm, 03/18/20 16:03:00 [...] disorder(Confirmed) Active Hepatitis C(Confirmed) Active 1now on [id number] methadone Social History Social History Type Response Smoking Status Former smoker, quit more bridgette n 30 days ago; Number of years: 0.7; Started at age: 29; Stopped at age: 30; entered on: 09/01/20 Sex
--- OUTSIDE RECORDS SUMMARY | 2022-05-12 17:30 | XMS_ITS | Continuity of Care Document ---
:1990 Author Organization [facility] Address [address] [place] [phone]- Care Team Providers Name Role Phone Dirk GAYLE, Aj Hall Primary Care Physician Encounter [facility] [place] Date(s): 01/21/21 - 02/20/21 [facility] [address] [place] [id number]- Attending Physician: Viola Crabtree Admitting Physician: AdmtrVoila Referring Physician: AdmtrViola Allergies, Adverse Reactions, Alerts Substance Reaction Severity Status NKA Active Immunizations Given and Recorded Vaccine Date Status Refusal Reason pneumococcal 23-valent vaccine1 12/19/17 Given Not Given Vaccine Date Status Refusal Reason influenza virus vaccine, inactivated2 09/04/19 Not Given Patient Refuses 1Early/Late Reason: Med Not [id number] Comment: i was just sick, I dont want it Medications AirDuo RespiClick 232 mcg-14 mcg/inh inhalation powder 1, inhalation, Inhalation, 2 times a day, rinse mouth and throat after use, # 1 each, Refills 0, Tot. Refills 0, Maintenance, 03/18/20 17:23:00 EDT, Powder, Route to Pharmacy Electronically, [id number], [facility]/pharmacy #[id number], 15... Start Date: 03/18/20 Stop Date: 04/17/20 Status: Orderedalbuterol CFC free 90 mcg/inh inhalation aerosol 2, puffs, Inhalation, 4 times a day, PRN, # 25 Gm, Refills 0, Tot. Refills 0, Maintenance, 03/18/20 17:24:00 EDT, Aerosol, Route to Pharmacy Electronically, [id number], [facility]/pharmacy #[id number], 155, cm, 03/18/20 16:03:00 EDT, Heig... Start Date: 03/18/20 Status: OrderedbuPROPion 300 mg/24 hours (XL) oral tablet, extended release 1 tablet = 300 mg, By Mouth, Daily, # 30 tablet, 0 Refills, Maintenance, 03/18/20 17:24:00 EDT, XL Tablet, [facility]/pharmacy #[id number], 155, cm, 03/18/20 16:03:00 EDT, Height, 93.3, kg, 03/17/20 6:29:00 EDT, Dry Weight Start Date: 03/18/20 Stop Date: 04/17/20 Status: Orderedcetirizine 10 mg oral tablet 1 tablet = 10 mg, By Mouth, Daily, # 30 tablet, 0 Refills, Maintenance, 03/18/20 17:24:00 EDT, Tablet, [facility]/pharmacy #[id number], 155, cm, 03/18/20 16:03:00 EDT, Height, 93.3, kg, 03/17/20 6:29:00 EDT, Dry Weight Start Date: 03/18/20 Status: OrderedColace sodium 100 mg oral capsule 100 mg, 1, capsule, By Mouth, 2 times a day, PRN, # 60 capsule, Refills 0, Tot. Refills 0, Maintenance, for constipation, 01/11/21 8:47:00 EDT, Route to Pharmacy Electronically, [facility]/pharmacy #[id number], Partial fill upon patient request if the prescription... Start Date: 01/11/21 Stop Date: 02/12/21 Status: Orderedfolic acid 1 mg oral tablet 1 mg, 1, tablet, By Mouth, Daily, # 30 tablet, Refills 0, Tot. Refills 0, Maintenance, 03/18/20 17:21:00 EDT, Route to Pharmacy Electronically, [facility]/pharmacy #[id number], 155, cm, 03/18/20 16:03:00 EDT, Height, 93.3, kg, 03/17/20 6:29:00 EDT, Dry Weight Start Date: 03/18/20 Status: Orderedmultivitamin Multiple Vitamins oral tablet 1 tablet, By Mouth, Daily, # 30 tablet, 0 Refills, Maintenance, 03/18/20 17:20:00 EDT, Tablet, [facility]/pharmacy #[id number], 1 tablet By Mouth Daily,x30 days, 155, cm, 03/18/20 16:03:00 EDT, Height, 93.3, kg, 03/17/20 6:29:00 EDT, Dry Weight Start Date: 03/18/20 Stop Date: 04/17/20 Status: OrderedSingulair 10 mg oral tablet 10 mg, 1, tablet, By Mouth, Daily, # 30 tablet, Refills 0, Tot. Refills 0, Maintenance, 03/18/20 17:23:00 EDT, Route to Pharmacy Electronically, [facility]/pharmacy #[id number], 155, cm, 03/18/20 16:03:00 [...] disorder(Confirmed) Active Hepatitis C(Confirmed) Active 1now on [id number] methadone Social History Social History Type Response Smoking Status Former smoker, quit more bridgette n 30 days ago; Number of years: 0.7; Started at age: 29; Stopped at age: 30; entered on: 09/01/20 Sex
--- OUTSIDE RECORDS SUMMARY | 2022-05-12 17:30 | XMS_ITS | Continuity of Care Document ---
:1990 Author Organization [facility] Address [address] [place] [address]- Care Team Providers Name Role Phone Dirk GAYLE, Aj Hall Primary Care Physician [place] [facility] [place](s): 06/24/20 - 07/24/20 [facility] [address] [place], [place] [address] Allergies, Adverse Reactions, Alerts Substance Reaction Severity Status NKA Active Immunizations Given and Recorded Vaccine Date Status Refusal Reason pneumococcal 23-valent vaccine1 12/19/17 Given Not Given Vaccine Date Status Refusal Reason influenza virus vaccine, inactivated2 09/04/19 Not Given Patient Refuses 1Early/Late Reason: Med Not [id number] Comment: i was just sick, I dont want it Medications AirDuo RespiClick 232 mcg-14 mcg/inh inhalation powder 1, inhalation, Inhalation, 2 times a day, rinse mouth and throat after use, # 1 each, Refills 0, Tot. Refills 0, Maintenance, 03/18/20 17:23:00 EDT, Powder, Route to Pharmacy Electronically, [id number], [facility]/pharmacy #[id number], 15... Start Date: 03/18/20 Stop Date: 04/17/20 Status: Orderedalbuterol CFC free 90 mcg/inh inhalation aerosol 2, puffs, Inhalation, 4 times a day, PRN, # 25 Gm, Refills 0, Tot. Refills 0, Maintenance, 03/18/20 17:24:00 EDT, Aerosol, Route to Pharmacy Electronically, [id number], [facility]/pharmacy #[id number], 155, cm, 03/18/20 16:03:00 EDT, Heig... [...] Refills, Maintenance, 03/18/20 17:24:00 EDT, XL Tablet, [facility]/pharmacy #[id number], 155, cm, 03/18/20 16:03:00 EDT, Height, 93.3, kg, 03/17/20 6:29:00 EDT, Dry Weight Start Date: 03/18/20 Stop Date: 04/17/20 Status: OrderedbusPIRone 10 mg oral tablet 10 mg, 1, tablet, By Mouth, 2 times a day, # 60 tablet, Refills 0, Tot. Refills 0, Maintenance, 03/18/20 17:24:00 EDT, Route to Pharmacy Electronically, [facility]/pharmacy #[id number], 155, cm, 03/18/20 16:03:00 EDT, Height, 93.3, kg, 03/17/20 6:29:00 EDT, Dry We... Start Date: 03/18/20 Status: Orderedcetirizine 10 mg oral tablet 1 tablet = 10 mg, By Mouth, Daily, # 30 tablet, 0 Refills, Maintenance, 03/18/20 17:24:00 EDT, Tablet, [facility]/pharmacy #[id number], 155, cm, 03/18/20 16:03:00 EDT, Height, 93.3, kg, 03/17/20 6:29:00 EDT, Dry Weight Start Date: 03/18/20 Status: OrderedcloNIDine 0.1 mg oral tablet 0.1 mg, By Mouth, 3 times a day, PRN, # 30 tablet, Refills 0, Tot. Refills 0, Maintenance, Anxiety, 03/18/20 17:21:00 EDT, Route to Pharmacy Electronically, [facility]/pharmacy #[id number], 155, cm, 03/18/20 16:03:00 EDT, Height, 93.3, kg, 03/17/20 6:29:00 EDT, . Start Date: 03/18/20 Stop Date: 04/17/20 Status: Orderedfolic acid 1 mg oral tablet 1 mg, 1, tablet, By Mouth, Daily, # 30 tablet, Refills 0, Tot. Refills 0, Maintenance, 03/18/20 17:21:00 EDT, Route to Pharmacy Electronically, [facility]/pharmacy #[id number], 155, cm, 03/18/20 16:03:00 EDT, Height, 93.3, kg, 03/17/20 6:29:00 EDT, Dry Weight Start Date: 03/18/20 Status: Orderedmultivitamin Multiple Vitamins oral tablet 1 tablet, By Mouth, Daily, # 30 tablet, 0 Refills, Maintenance, 03/18/20 17:20:00 EDT, Tablet, [facility]/pharmacy #[id number], 1 tablet By Mouth Daily,x30 days, 155, cm, 03/18/20 16:03:00 EDT, Height, 93.3, kg, 03/17/20 6:29:00 EDT, Dry Weight Start Date: 03/18/20 Stop Date: 04/17/20 Status: OrderedrOPINIRole 1 mg oral tablet = 1 mg, By Mouth, 2 times a day, # 60 tablet, 0 Refills, Maintenance, 03/18/20 17:22:00 EDT, Tablet,[facility]/pharmacy #[id number], 155, cm, 03/18/20 16:03:00 EDT, Height, 93.3, kg, 03/17/20 6:29:00 EDT, Dry Weight Start Date: 03/18/20 Stop Date: 04/17/20 Status: OrderedSingulair 10 mg oral tablet 10 mg, 1, tablet, By Mouth, Daily, # 30 tablet, Refills 0, Tot. Refills 0, Maintenance, 03/18/20 17:23:00 EDT, [id number], cm, 03/18/20 16:03:00 EDT, Height, 93.3, kg, 03/17/20 6:29:00 EDT, Dry Weight Start Date: 03/18/20 Status: OrderedtraZODone 50 mg oral tablet 50 mg, 1, tablet, By Mouth, Daily at bedtime, PRN, # 30 tablet, Refills 0, Tot. Refills 0, Maintenance, Sleep, 03/18/20 17:22:00 EDT, Route to Pharmacy Electronically, [facility]/pharmacy #[id number], 155, cm, 03/18/20 16:03:00 EDT, Height, 93.3, kg, 03/17/20 6:29... Start Date: 03/18/20 Stop Date: 04/17/20 Status: Ordered Problem List Condition Effective Dates Status Health Status Informant Asthma(Confirmed) Active Social History Social History Type Response Smoking Status Never (less than 100 in life time) entered on: 02/27/20 Sex
--- OUTSIDE RECORDS SUMMARY | 2022-05-12 17:30 | XMS_ITS | Continuity of Care Document ---
:1990 Author Organization [facility] Address [address] [place] [id number]- Care Team Providers Name Role Phone Dirk GAYLE, Aj Hall Primary Care Physician [facility]counter [facility] Date(s): 02/10/22 - 03/12/[facility] [address] [place] [id number] Allergies, Adverse Reactions, Alerts No Known Allergies Immunizations Given and Recorded Vaccine Date Status Refusal Reason pneumococcal 23-valent vaccine1 12/19/17 Given Not Given Vaccine Date Status Refusal Reason influenza virus vaccine, inactivated2 09/04/19 Not Given Patient Refuses 1Early/Late Reason: Med Not [id number] Comment: i was just sick, I dont want it Medications AirDuo RespiClick 232 mcg-14 mcg/inh inhalation powder 1, inhalation, Inhalation, 2 times a day, rinse mouth and throat after use, # 1 each, Refills 0, Tot. Refills 0, Maintenance, 03/18/20 17:23:00 EDT, Powder, Route to Pharmacy Electronically, [id number], [facility]/pharmacy #[id number], 15... Start Date: 03/18/20 Stop Date: 04/17/20 Status: Orderedalbuterol CFC free 90 mcg/inh inhalation aerosol 2, puffs, Inhalation, 4 times a day, PRN, # 25 Gm, Refills 0, Tot. Refills 0, Maintenance, 03/18/20 17:24:00 EDT, Aerosol, Route to Pharmacy Electronically, [id number], [facility]/pharmacy #[id number], 155, cm, 03/18/20 16:03:00 EDT, Heig... Start Date: 03/18/20 Status: OrderedbuPROPion 300 mg/24 hours (XL) oral tablet, extended release 1 tablet = 300 mg, By Mouth, Daily, # 30 tablet, 0 Refills, Maintenance, 03/18/20 17:24:00 EDT, XL Tablet, [facility]/pharmacy #[id number], 155, cm, 03/18/20 16:03:00 EDT, Height, 93.3, kg, 03/17/20 6:29:00 EDT, Dry Weight Start Date: 03/18/20 Stop Date: 04/17/20 Status: Orderedcetirizine 10 mg oral tablet 1 tablet = 10 mg, By Mouth, Daily, # 30 tablet, 0 Refills, Maintenance, 03/18/20 17:24:00 EDT, Tablet, [facility]/pharmacy #[id number], 155, cm, 03/18/20 16:03:00 EDT, Height, 93.3, kg, 03/17/20 6:29:00 EDT, Dry Weight Start Date: 03/18/20 Status: OrderedColace sodium 100 mg oral capsule 100 mg, 1, capsule, By Mouth, 2 times a day, PRN, # 60 capsule, Refills 0, Tot. Refills 0, Maintenance, for constipation, 01/11/21 8:47:00 EDT, Route to Pharmacy Electronically, [facility]/pharmacy #[id number], Partial fill upon patient request if the prescription... Start Date: 01/11/21 Stop Date: 02/12/21 Status: Orderedfolic acid 1 mg oral tablet 1 mg, 1, tablet, By Mouth, Daily, # 30 tablet, Refills 0, Tot. Refills 0, Maintenance, 03/18/20 17:21:00 EDT, Route to Pharmacy Electronically, [facility]/pharmacy #[id number], 155, cm, 03/18/20 16:03:00 EDT, Height, 93.3, kg, 03/17/20 6:29:00 EDT, Dry Weight Start Date: 03/18/20 Status: Orderedmultivitamin Multiple Vitamins oral tablet 1 tablet, By Mouth, Daily, # 30 tablet, 0 Refills, Maintenance, 03/18/20 17:20:00 EDT, Tablet, [facility]/pharmacy #[id number], 1 tablet By Mouth Daily,x30 days, 155, cm, 03/18/20 16:03:00 EDT, Height, 93.3, kg, 03/17/20 6:29:00 EDT, Dry Weight Start Date: 03/18/20 Stop Date: 04/17/20 Status: OrderedSingulair 10 mg oral tablet 10 mg, 1, tablet, By Mouth, Daily, # 30 tablet, Refills 0, Tot. Refills 0, Maintenance, 03/18/20 17:23:00 EDT, Route to Pharmacy Electronically, [facility]/pharmacy #[id number], 155, cm, 03/18/20 16:03:00 [...] tablet, 0 Refills,Maintenance, 05/28/21 20:32:00 EST, Tablet, [facility]/pharmacy #[id number], Partial fill upon patient request ifthe prescription is for a schedule II opioid drug... Start Date: 05/28/21 Stop Date: 06/02/21 Status: Ordered Problem List Condition Effective Dates Status Health Status Informant Asthma(Confirmed) Active Anxiety and depression(Confirmed) Active Obese class II(Confirmed) Active Obesity during (Confirmed) Active Opioid use disorder(Confirmed)1, 2 Active Rh alloimmunization, maternal, Active antepartum (anti-c)(Confirmed) Seizure disorder(Confirmed) Active Hepatitis C(Confirmed) Active 1now on nufzhmws3ky methadone Social History Social History Type Response Tobacco Use: 4 or less cigarettes(le ss than 1/4 pack)/day in last 30 days. Sex Care Team PersonnelName: Dirk GAYLE , jA Hall Address: [address] [place] [address]
--- OUTSIDE RECORDS SUMMARY | 2022-05-12 17:30 | XMS_ITS | Continuity of Care Document ---
:1990 Author Organization [facility] Address [address] [place] [phone]- Care Team Providers Name Role Phone Dirk GAYLE, Aj Hall Primary Care Physician [facility]counter [facility] Date(s): 12/11/20 - 01/10/21 [facility] [address] [place] [id number] Allergies, Adverse Reactions, Alerts Substance Reaction Severity Status NKA Active Immunizations Given and Recorded Vaccine Date Status Refusal Reason pneumococcal 23-valent vaccine1 12/19/17 Given Not Given Vaccine Date Status Refusal Reason influenza virus vaccine, inactivated2 09/04/19 Not Given Patient Refuses 1Early/Late Reason: Med Not [id number] Comment: i was just sick, I dont want it Medications AirDuo RespiClick 232 mcg-14 mcg/inh inhalation powder 1, inhalation, Inhalation, 2 times a day, rinse mouth and throat after use, # 1 each, Refills 0, Tot. Refills 0, Maintenance, 03/18/20 17:23:00 EDT, Powder, Route to Pharmacy Electronically, [id number], [facility]/pharmacy #[id number], 15... Start Date: 03/18/20 Stop Date: 04/17/20 Status: Orderedalbuterol CFC free 90 mcg/inh inhalation aerosol 2, puffs, Inhalation, 4 times a day, PRN, # 25 Gm, Refills 0, Tot. Refills 0, Maintenance, 03/18/20 17:24:00 EDT, Aerosol, Route to Pharmacy Electronically, [id number], [facility]/pharmacy #[id number], 155, cm, 03/18/20 16:03:00 EDT, Heig... Start Date: 03/18/20 Status: OrderedbuPROPion 300 mg/24 hours (XL) oral tablet, extended release 1 tablet = 300 mg, By Mouth, Daily, # 30 tablet, 0 Refills, Maintenance, 03/18/20 17:24:00 EDT, XL Tablet, [facility]/pharmacy #[id number], 155, cm, 03/18/20 16:03:00 EDT, Height, 93.3, kg, 03/17/20 6:29:00 EDT, Dry Weight Start Date: 03/18/20 Stop Date: 04/17/20 Status: Orderedcetirizine 10 mg oral tablet 1 tablet = 10 mg, By Mouth, Daily, # 30 tablet, 0 Refills, Maintenance, 03/18/20 17:24:00 EDT, Tablet, [facility]/pharmacy #[id number], 155, cm, 03/18/20 16:03:00 EDT, Height, 93.3, kg, 03/17/20 6:29:00 EDT, Dry Weight Start Date: 03/18/20 Status: Orderedfolic acid 1 mg oral tablet 1 mg, 1, tablet, By Mouth, Daily, # 30 tablet, Refills 0, Tot. Refills 0, Maintenance, 03/18/20 17:21:00 EDT, Route to Pharmacy Electronically, [facility]/pharmacy #[id number], 155, cm, 03/18/20 16:03:00 EDT, Height, 93.3, kg, 03/17/20 6:29:00 EDT, Dry Weight Start Date: 03/18/20 Status: Orderedmultivitamin Multiple Vitamins oral tablet 1 tablet, By Mouth, Daily, # 30 tablet, 0 Refills, Maintenance, 03/18/20 17:20:00 EDT, Tablet, [facility]/pharmacy #[id number], 1 tablet By Mouth Daily,x30 days, 155, cm, 03/18/20 16:03:00 EDT, Height, 93.3, kg, 03/17/20 6:29:00 EDT, Dry Weight Start Date: 03/18/20 Stop Date: 04/17/20 Status: OrderedSingulair 10 mg oral tablet 10 mg, 1, tablet, By Mouth, Daily, # 30 tablet, Refills 0, Tot. Refills 0, Maintenance, 03/18/20 17:23:00 EDT, Route to Pharmacy Electronically, [facility]/pharmacy #[id number], 155, cm, 03/18/20 16:03:00 EDT, Height, [...] disorder(Confirmed) Active Hepatitis C(Confirmed) Active 1now on adctabjn6yf methadone Social History Social History Type Response Smoking Status Former smoker, quit more bridgette n 30 days ago; Number of years: 0.7; Started at age: 29; Stopped at age: 30; entered on: 09/01/20 Sex
--- OUTSIDE RECORDS SUMMARY | 2022-05-12 17:30 | XMS_ITS | Continuity of Care Document ---
:1990 Author Organization [facility] Address [address] [place] [id number]- Care Team Providers Name Role Phone Dirk GAYLE, Aj Hall Primary Care Physician [facility] Date(s): 12/11/20 - 01/10/21 [facility] [address] [place] [id number] Allergies, Adverse Reactions, Alerts Substance Reaction Severity Status NKA Active Immunizations Given and Recorded Vaccine Date Status Refusal Reason pneumococcal 23-valent vaccine1 12/19/17 Given Not Given Vaccine Date Status Refusal Reason influenza virus vaccine, inactivated2 09/04/19 Not Given Patient Refuses 1Early/Late Reason: Med Not [id number] Comment: i was just sick, I dont want it Medications AirDuo RespiClick 232 mcg-14 mcg/inh inhalation powder 1, inhalation, Inhalation, 2 times a day, rinse mouth and throat after use, # 1 each, Refills 0, Tot. Refills 0, Maintenance, 03/18/20 17:23:00 EDT, Powder, Route to Pharmacy Electronically, [id number], [facility]/pharmacy #[id number], 15... Start Date: 03/18/20 Stop Date: 04/17/20 Status: Orderedalbuterol CFC free 90 mcg/inh inhalation aerosol 2, puffs, Inhalation, 4 times a day, PRN, # 25 Gm, Refills 0, Tot. Refills 0, Maintenance, 03/18/20 17:24:00 EDT, Aerosol, Route to Pharmacy Electronically, [id number], [facility]/pharmacy #[id number], 155, cm, 03/18/20 16:03:00 EDT, Heig... Start Date: 03/18/20 Status: OrderedbuPROPion 300 mg/24 hours (XL) oral tablet, extended release 1 tablet = 300 mg, By Mouth, Daily, # 30 tablet, 0 Refills, Maintenance, 03/18/20 17:24:00 EDT, XL Tablet, [facility]/pharmacy #[id number], 155, cm, 03/18/20 16:03:00 EDT, Height, 93.3, kg, 03/17/20 6:29:00 EDT, Dry Weight Start Date: 03/18/20 Stop Date: 04/17/20 Status: Orderedcetirizine 10 mg oral tablet 1 tablet = 10 mg, By Mouth, Daily, # 30 tablet, 0 Refills, Maintenance, 03/18/20 17:24:00 EDT, Tablet, [facility]/pharmacy #[id number], 155, cm, 03/18/20 16:03:00 EDT, Height, 93.3, kg, 03/17/20 6:29:00 EDT, Dry Weight Start Date: 03/18/20 Status: Orderedfolic acid 1 mg oral tablet 1 mg, 1, tablet, By Mouth, Daily, # 30 tablet, Refills 0, Tot. Refills 0, Maintenance, 03/18/20 17:21:00 EDT, Route to Pharmacy Electronically, [facility]/pharmacy #[id number], 155, cm, 03/18/20 16:03:00 EDT, Height, 93.3, kg, 03/17/20 6:29:00 EDT, Dry Weight Start Date: 03/18/20 Status: Orderedmultivitamin Multiple Vitamins oral tablet 1 tablet, By Mouth, Daily, # 30 tablet, 0 Refills, Maintenance, 03/18/20 17:20:00 EDT, Tablet, [facility]/pharmacy #[id number], 1 tablet By Mouth Daily,x30 days, 155, cm, 03/18/20 16:03:00 EDT, Height, 93.3, kg, 03/17/20 6:29:00 EDT, Dry Weight Start Date: 03/18/20 Stop Date: 04/17/20 Status: OrderedSingulair 10 mg oral tablet 10 mg, 1, tablet, By Mouth, Daily, # 30 tablet, Refills 0, Tot. Refills 0, Maintenance, 03/18/20 17:23:00 EDT, Route to Pharmacy Electronically, [facility]/pharmacy #[id number], 155, cm, 03/18/20 16:03:00 [...] disorder(Confirmed) Active Hepatitis C(Confirmed) Active 1now on hmsdorfz6mo methadone Social History Social History Type Response Smoking Status Former smoker, quit more bridgette n 30 days ago; Number of years: 0.7; Started at age: 29; Stopped at age: 30; entered on: 09/01/20 Sex
--- OUTSIDE RECORDS SUMMARY | 2022-05-12 17:30 | XMS_ITS | Continuity of Care Document ---
:1990 Author Organization [facility] Address [address] [place] [id number]- Care Team Providers Name Role Phone Aj Cavazos MD Primary Care Physician Encounter [facility] Date(s): 01/07/21 - 01/11/[address] [address] Discharge Disposition: A-D/C Home Attending Physician: Fiorella Henderson DO Admitting Physician: Fiorella Henderson DO Referring Physician: Fiorella Henderson DO Allergies, Adverse Reactions, Alerts Substance Reaction Severity Status NKA Active Immunizations Given and Recorded Vaccine Date Status Refusal Reason pneumococcal 23-valent vaccine1 12/19/17 Given Not Given Vaccine Date Status Refusal Reason influenza virus vaccine, inactivated2 09/04/19 Not Given Patient Refuses 1Early/Late Reason: Med Not [id number] Comment: i was just sick, I dont want it Medications Acetaminophen Tablet 650 mg, Tablet, By Mouth, (1-3), may give 325mg per patient preference and re- dose with 325mg within4 hours if needed. Patient should only receive a total of 650mg of Acetaminophen every 4 hours., 01/11/21 14:00:00 EDT Start Date: 01/11/21 Stop Date: 01/11/21 Status: CompletedAirDuo RespiClick 232 mcg-14 mcg/inh inhalation powder 1, inhalation, Inhalation, 2 times a day, rinse mouth and throat after use, # 1 each, Refills 0, Tot. Refills 0, Maintenance, 03/18/20 17:23:00 EDT, Powder, Route to Pharmacy Electronically, [id number], [facility]/pharmacy #[id number], 15... Start Date: 03/18/20 Stop Date: 04/17/20 Status: Orderedalbuterol CFC free 90 mcg/inh inhalation aerosol 2, puffs, Inhalation, 4 times a day, PRN, # 25 Gm, Refills 0, Tot. Refills 0, Maintenance, 03/18/20 17:24:00 EDT, Aerosol, Route to Pharmacy Electronically, [id number], [id number], cm, 03/18/20 16:03:00 EDT, Heig... Start Date: 03/18/20 Status: OrderedbuPROPion 300 mg/24 hours (XL) oral tablet, extended release 1 tablet = 300 mg, By Mouth, Daily, # 30 tablet, 0 Refills, Maintenance, 03/18/20 17:24:00 EDT, XL Tablet, [id number], [facility], cm, 03/18/20 16:03:00 EDT, Height, 93.3, kg, 03/17/20 6:29:00 EDT, Dry Weight Start Date: 03/18/20 Stop Date: 04/17/20 Status: Orderedcetirizine 10 mg oral tablet 1 tablet = 10 mg, By Mouth, Daily, # 30 tablet, 0 Refills, Maintenance, 03/18/20 17:24:00 EDT, Tablet, [facility]/pharmacy #[id number], 155, cm, 03/18/20 16:03:00 EDT, Height, 93.3, kg, 03/17/20 6:29:00 EDT, Dry Weight Start Date: 03/18/20 Status: OrderedColace sodium 100 mg oral capsule 100 mg, 1, capsule, By Mouth, 2 times a day, PRN, # 60 capsule, Refills 0, Tot. Refills 0, Maintenance, for constipation, 01/11/21 8:47:00 EDT, [facility]ically, [id number] Partial fill upon patient request if the prescription... Start Date: 01/11/21 Stop Date: 02/12/21 Status: OrderedDilaudid 2 mg oral tablet 1 tablet = 2 mg, By Mouth, Every 4 hours, PRN as needed for pain, # 18 tablet, 0 Refills, Acute 02/12/21 8:49:00 EDT, 01/11/21 8:48:00 EDT, Tablet, [facility]/pharmacy #[id number], Partial fill upon patient requestif the prescription is for a schedule II opioid d... Start Date: 01/11/21 Stop Date: 02/12/21 Status: Orderedfolic acid 1 mg oral tablet 1 mg, 1, tablet, By Mouth, Daily, # 30 tablet, Refills 0, Tot. Refills 0, Maintenance, 03/18/20 17:21:00 EDT, Route to Pharmacy Electronically, [facility]/pharmacy #[id number], 155, cm, 03/18/20 16:03:00 EDT, Height, 93.3, kg, 03/17/20 6:29:00 EDT, Dry Weight Start Date: 03/18/20 Status: Orderedibuprofen 600 mg oral tablet 600 mg, 1, tablet, By Mouth, 4 times a day, PRN, # 40 tablet, Refills 0, Tot. Refills 0, Acute 02/12/21 8:48:00 EDT, for pain, 01/11/21 8:47:00 EDT, Route to Pharmacy Electronically, [facility]/pharmacy #[id number], Partial fill upon patient request if the prescri... Start Date: 01/11/21 Stop Date: 02/12/21 Status: OrderedIbuprofen Tablet 800 mg, Tablet, By Mouth, (4-6), may give 400mg per patient preference and re- dose with 400mg within8 hours if needed. Patient should only receive a total of 800mg of Ibuprofen every 8 hours., 01/11/21 10:00:00 EDT Start Date: 01/11/21 Stop Date: 01/11/21 Status: Completedmultivitamin Multiple Vitamins oral tablet 1 tablet, By Mouth, Daily, # 30 tablet, 0 Refills, Maintenance, 03/18/20 17:20:00 EDT, Tablet, [facility]/pharmacy #[id number], 1 tablet By Mouth Daily,x30 days, 155, cm, 03/18/20 16:03:00 EDT, Height, 93.3, kg, 03/17/20 6:29:00 EDT, Dry Weight Start Date: 03/18/20 Stop Date: 04/17/20 Status: Orderedsimethicone 80 mg oral tablet 1 tablet = 80 mg, Chew, 3 times a day after meals and bedtime, PRN for gas, # 60 tablet, 0 Refills, Acute 02/12/21 8:49:00 EDT, 01/11/21 8:47:00 EDT, Tablet, [facility]/pharmacy #[id number], Partial fill upon patient request if the prescription is for a schedule I... Start Date: 01/11/21 Stop Date: 02/12/21 Status: OrderedSingulair 10 mg oral tablet 10 mg, 1, tablet, By Mouth, Daily, # 30 tablet, Refills 0, Tot. Refills 0, Maintenance, 03/18/20 17:23:00 EDT, Route to Pharmacy Electronically, [facility]/pharmacy #[id number], 155, cm, 03/18/20 16:03:00 EDT, [...] 02/12/21 8:49:00 EDT, 01/11/21 8:47:00 EDT, Capsule, [facility]/pharmacy #[id number], Partial fill upon patient request if the prescripti... Start Date: 01/11/21 Stop Date: 02/12/21 Status: Ordered Problem List Condition Effective Dates Status Health Status Informant Asthma(Confirmed) Active Anxiety and depression(Confirmed) Active Obesity during (Confirmed) Active Opioid use disorder(Confirmed)1, 2 Active Rh alloimmunization, maternal, Active antepartum (anti-c)(Confirmed) Seizure disorder(Confirmed) Active Hepatitis C(Confirmed) Active 1now on lgvubocx0ii methadone Procedures Procedure Date Related Diagnosis Body Site Status delivery only; 01/07/21 Comp leted Vital Signs Most recent to oldest 1 2 3 [Reference Range]: Height 154 cm 154 cm 154 cm (01/11/21 4:00 PM) (01/11/21 8:00 AM) (01/11/21 12: 11 AM) Weight 96 kg (01/07/21 12:38 PM) Oxygen Saturation [94-100 %] 100 % 100 % 95 % (01/11/21 4:00 PM) (01/11/21 8:00 AM) (01/11/21 12: 11 AM) Pulse Rate [55-90 bpm] 68 bpm 64 bpm 66 bpm (01/11/21 4:00 PM) (01/11/21 8:00 AM) (01/11/21 12: 11 AM) Body Mass Index [18.5-24.99] 40.48 *>HHI* (01/07/21 12:38 PM) Blood Pressure [90-138/55-84 143/73 mm Hg 120/84 mm Hg 133 /73 mm Hg mm Hg] *H* (01/11/21 8:00 AM) (01/11/21 12:11 AM) (01/11/21 4:00 PM) Respiratory Rate [16-30 20 br/min 20 br/min 18 br/mi n br/min] (01/11/21 4:08 PM) (01/11/21 4:07 PM) (01/11/21 4:0 0 PM) Temperature [96.8-100.4 DegF] 98.2 DegF 97.8 DegF 98 .2 DegF (01/11/21 4:00 PM) (01/11/21 8:00 AM) (01/11/21 12: 11 AM) Mode of Delivery (Oxygen) Room air Room air Room a ir (01/11/21 4:00 PM) (01/11/21 8:00 AM) (01/11/21 12: 11 AM) Blood pressure sites Arm, right Arm, left Arm, right (01/11/21 4:00 PM) (01/11/21 8:00 AM) (01/11/21 12: 11 AM) Temperature Route Oral Oral Oral (01/11/21 4:00 PM) (01/11/21 8:00 AM) (01/11/21 12: 11 AM) Dry Weight 96 kg (01/07/21 12:38 PM) Social History Social History Type Response Smoking Status Former smoker, quit more bridgette n 30 days ago; Number of years: 0.7; Started at age: 29; Stopped at age: 30; entered on: 09/01/20 Sex
--- OUTSIDE RECORDS SUMMARY | 2022-05-12 17:30 | XMS_ITS | Continuity of Care Document ---
:1990 Author Organization [facility] Address [address] [place] [id number]- Care Team Providers Name Role Phone Dirk GAYLE, Aj Hall Primary Care Physician [facility]counter [facility] Date(s): 04/01/20 - 05/01/[address] [address]- Attending Physician: Viola Crabtree Admitting Physician: Viola Crabtree Referring Physician: AdmtrViola Allergies, Adverse Reactions, Alerts Substance Reaction Severity Status NKA Active Immunizations Given and Recorded Vaccine Date Status Refusal Reason pneumococcal 23-valent vaccine1 12/19/17 Given Not Given Vaccine Date Status Refusal Reason influenza virus vaccine, inactivated2 09/04/19 Not Given Patient Refuses 1Early/Late Reason: Med Not [id number] Comment: i was just sick, I dont want it Medications AirDuo RespiClick 232 mcg-14 mcg/inh inhalation powder 1, inhalation, Inhalation, 2 times a day, rinse mouth and throat after use, # 1 each, Refills 0, Tot. Refills 0, Maintenance, 03/18/20 17:23:00 EDT, Powder, Route to Pharmacy Electronically, [id number], [facility]/pharmacy #[id number], 15... Start Date: 03/18/20 Stop Date: 04/17/20 Status: Orderedalbuterol CFC free 90 mcg/inh inhalation aerosol 2, puffs, Inhalation, 4 times a day, PRN, # 25 Gm, Refills 0, Tot. Refills 0, Maintenance, 03/18/20 17:24:00 EDT, Aerosol, Route to Pharmacy Electronically, [id number], [facility]/pharmacy #[id number], 155, [...] 03/18/20 17:24:00 EDT, [facility] Electronically, [facility] [...] Refills, Maintenance, 03/18/20 17:20:00 EDT, [id number] 1 tablet By Mouth Daily,x30 days, 155, cm, 03/18/20 16:03:00 EDT, Height, 93.3, kg, 03/17/20 6:29:00 EDT, Dry Weight Start Date: 03/18/20 Stop Date: 04/17/20 Status: OrderedrOPINIRole 1 mg oral tablet = 1 mg, By Mouth, 2 times a day, # 60 tablet, 0 Refills, Maintenance, 03/18/20 17:22:00 EDT, Tablet,[facility]/pharm[facility] #[id number], 155, cm, [...] 03/18/20 17:22:00 EDT, [facility] to Pharmacy Electronically, [facility] [...]
--- OUTSIDE RECORDS SUMMARY | 2022-05-12 17:30 | XMS_ITS | Continuity of Care Document ---
:1990 Author Organization [facility] Address [address] [place] [id number]- Care Team Providers Name Role Phone Aj Cavazos MD Primary Care Physician Encounter [facility] Date(s): 08/17/20 - 11/20/20 [facility] [address] [place] [id number] Attending Physician: Yariel Mccabe MD Admitting Physician: Yariel Mccabe MD Referring Physician: Aj Cavazos MD Allergies, Adverse Reactions, Alerts Substance Reaction Severity Status NKA Active Immunizations Given and Recorded Vaccine Date Status Refusal Reason pneumococcal 23-valent vaccine1 12/19/17 Given Not Given Vaccine Date Status Refusal Reason influenza virus vaccine, inactivated2 09/04/19 Not Given Patient Refuses 1Early/Late Reason: Med Not [id number] Comment: i was just sick, I dont want it Medications AirDuo RespiClick 232 mcg-14 mcg/inh inhalation powder 1, inhalation, Inhalation, 2 times a day, rinse mouth and throat after use, # 1 each, Refills 0, Tot. Refills 0, Maintenance, 03/18/20 17:23:00 EDT, Powder, Route to Pharmacy Electronically, [id number], [facility]/pharmacy #1094, 15... Start Date: 03/18/20 Stop Date: 04/17/20 Status: Orderedalbuterol CFC free 90 mcg/inh inhalation aerosol 2, puffs, Inhalation, 4 times a day, PRN, # 25 Gm, Refills 0, Tot. Refills 0, Maintenance, 03/18/20 17:24:00 EDT, Aerosol, Route to Pharmacy Electronically, [id number], [facility]/pharmacy #1094, 155, cm, [...] disorder(Confirmed) Active Hepatitis C(Confirmed) Active 1now on hetgzkjo4td methadone Social History Social History Type Response Smoking Status Former smoker, quit more bridgette n 30 days ago; Number of years: 0.7; Started at age: 29; Stopped at age: 30; entered on: 09/01/20 Sex
--- NOTE | 2022-05-12 17:37 | PC.RT ---
RT to ER for svn ordered at 1658, pt not in room x 45 min, rn aware.
[2022-05-12 17:48] LABS: MANUAL DIFF FLAG NO
--- NOTE | 2022-05-12 17:54 | PM.OBCN ---
OB Consult Note - [facility] Data Service Date: 05/12/22 Primary Care Provider: Unknown Physician Narrative I was consulted at 5:46 pm on Meme Holloway who is a 32 year old female at 25 weeks of gestation at presented emergency room with bilateral LE swelling, pain, and SOB worsening over the past week.? No crampy abdominal pain , no vaginal bleeding or leakage of fluid. Good movement. Initial blood pressure was 150/78 and heart rate 119 repeat blood pressure came down to 114/53 Workup done emergency room included chest x-ray results still pending and lower extremity duplex scan which was negative for DVT. Patient is albuterol treatment on arrival H&H 10.5/30.8, platelets 149 K, AST/ALT 100/43 OB PMFSH Past Medical History Medical History Active asthma Bipolar disorder Hepatitis C Social History Social History Alcohol intake: never Patient Tobacco Use Status: Tobacco use Unknown Smoked in Last 30 Days: Yes Use of substances other than those prescribed or required for medical reasons: No Advance Directives: No Advance Directives Information Provided: Yes Meds Allergies Allergy/AdvReac Type Severity Reaction Status Date / Time No Known Allergies Allergy Verified 03/03/22 01:19 Home Medications Medication Instructions Recorded Confirmed Last Taken Type buprenorphine 8 mg-naloxone 2 mg 2 film buccal DAILY 05/04/20 Unknown History sublingual film (Suboxone) buprenorphine HCl 8 mg sublingual 16 mg sublingual DAILY 01/05/21 Unknown History tablet OB Physical Exam Physical Exam Additional Comments: Physical exam reported by Dr. Vazquez as the following: Abdomen: Soft, no epigastric , no right upper quadrant tenderness Lower bilateral extremities: +2 pitting edema Evaluation Gestational Age: FHR 130 bpm Baseline FHR:: 130 OB Consult Results Labs CBC & Chem 7: 05/12/22 17:43 05/12/22 17:43 OB - CN: A/P Assessment and Plan (1) : Status: Acute Plan Discussed the case with Dr. Vazquez and recommended the followin-shortness of breath with tachycardia-differential diagnosis includes exacerbation of asthma, PE, peripartum cardiomyopathy. Needs treatment for exacerbation of asthma and rule out PE and cardiomyopathy. 2-Initial hypertension with elevated liver function tests and platelets trending lower, with lower extremity edema-rule out HELLP syndrome/ gestation hypertension/preeclampsia. 3- Transfer to [facility] since there is no maternity at [facility] for toco and heart rate monitoring, the patient needs to be on continuous heart rate/toco monitor while the workup/treatment is being done. I spent a total of 20 minutes reviewing the chart, communicating to emergency room provider and documenting in the medical record
[2022-05-12 17:55] LABS: Basophils Absolute Auto 0.1 X10*3/uL (0.0-0.2); Basophils Percent Auto 0.5 % (0-2); Eosinophils Absolute Auto 0.4 X10*3/uL (0.0-0.4); Eosinophils Percent Auto 4.7 % (0-4); Hematocrit 30.8 % (37.0-47.0); Hemoglobin 10.5 g/dl (12.0-16.0); Imm Gran Abs Auto 0.05 X10*3/uL (0.00-0.03); Imm Gran Pct Auto 0.5 % (0.0-0.4); Lymphocytes Absolute Auto 1.7 X10*3/uL (1.2-4.9); Lymphocytes Percent Auto 18.2 % (20-40); Mean Corpuscular HGB Conc 34.1 g/dl (31.0-35.0); Mean Corpuscular Hemoglobin 31.2 pg (27.0-33.0); Mean Corpuscular Volume 91.4 fL (80.0-98.0); Mean Platelet Volume 10.3 fL (9.4-12.3); Monocytes Absolute Auto 0.5 X10*3/uL (0.1-1.2); Monocytes Percent Auto 5.7 % (2-11); Neutrophils Absolute Auto 6.6 x10*3/uL (2.0-8.3); Neutrophils Percent Auto 70.4 % (45-73); Platelet Count 149 X10*3/uL (160-400); Red Blood Count 3.37 X10*6/uL (4.20-5.50); Red Cell Distribution Width 12.9 % (11.0-16.0); White Blood Count 9.3 X10*3/uL (4.8-10.8)
[2022-05-12 18:02] LABS: INTERNATIONAL NORM RATIO 1.1 (0.9-1.1); Prothrombin Time 13.1 SEC (10.0-13.1)
[2022-05-12 18:14] LABS: B Type Natriuretic Peptide 22 pg/mL (<100); Troponin-I High Sensitivity < 3.5 ng/L (<3.5-17.0)
[2022-05-12 18:15] LABS: COVID-19 Test Negative (Negative); IDNOW Serial# 16C4AD1C
[2022-05-12 18:16] VITALS: PULSE 92; RESP 18; O2SAT 96
[2022-05-12 18:16] LABS: Alanine Aminotransferase 43 U/L (0-31); Albumin Level 3.1 g/dL (3.5-5.0); Alkaline Phosphatase 106 U/L (39-117); Anion Gap 13 (12-20); Aspartate Amino Transferase 100 U/L (5-31); Bilirubin Direct 0.5 mg/dL (0.0-0.5); Bilirubin Total 0.8 mg/dL (0.0-1.0); Blood Urea Nitrogen 4 mg/dL (9-16); Calcium 8.2 mg/dL (8.4-10.2); Carbon Dioxide 23 mmol/L (22-29); Chloride 106 mmol/L (96-108); Creatinine Clr Calc Pharmacy 147.1; Estimated Glomerular Filt Rate > 60; Glucose Random 142 mg/dL (60-115); HCG Quantitative 8262 mIU/mL; Magnesium 1.6 mg/dL (1.6-2.6); Potassium 3.4 mmol/L (3.3-5.1); Sodium 139 mmol/L (135-145); Total Protein 6.6 g/dL (6.5-8.0)
[2022-05-12] MEDS: Albuterol/Iprat 2.5/0.5MG 3 ML AMPUL.NEB INHALE (18:16)
[2022-05-12] MEDS: methylPREDNISolone Sod Succ 125 MG/2 ML VIAL IVPUSH (18:32)
--- NOTE | 2022-05-12 18:45 | PC.NURSE ---
[facility] Transfer Line called at [phone] per .Gave patient demographics awaiting a call back at this time. Md theodore
--- NOTE | 2022-05-12 19:40 | PC.NURSE ---
[facility] called at 1907 spoke with .Accepted patient to W2 accepting .Salena called at 1922 for a bls transfer to [facility]. Nurse to Nurse report Rn aware
[2022-05-12 20:08] VITALS: BP 109/53; PULSE 87; RESP 18; TEMP 36.8; O2SAT 98
[2022-05-12 20:19] LABS: Appearance Urine Clear; Color Urine Yellow; Glucose Urine UA Negative (Negative); Leukocyte Esterase Urine Negative (Negative); Nitrite Urine Negative (Negative); PH 6.5 (5.0-9.0); Specific Gravity - Urine 1.015 (1.005-1.025); Urine Blood Negative (Negative); Urine Ketones 15 mg/dL (Negative); Urine Protein Negative (Neg-Trace)
--- NOTE | 2022-05-12 20:20 | PC.NURSE ---
Patient alert and oriented x 3. ambulates independently. Patient denies any pain, sob, and dizziness. Patient getting transferred to [facility] for ? HELLP or Pre eclampsia. Report called [facility] [id number].
== END 2022-05-12 20:23 | disposition short-term general hospital (02) ==
PROVIDERS: Physician Assistant; Emergency Provider Emergency Medicine
DX: J45.901 Unspecified asthma with (acute) exacerbation (principal); R60.0 Localized edema; R06.02 Shortness of breath; Z20.822 Contact with and (suspected) exposure to COVID-19; Z79.899 Other long term (current) drug therapy
CPT/HCPCS: 36415; 71045; 80048; 80076; 81003; 83735; 83880; 84484; 84702; 85025; 85610; 87635; 93005; 93970; 94640; 96374; 99284; 99285; J2930

== ENCOUNTER 2023-06-11 18:31 | Emergency (ER) | payer OTHER, SELFPAY ==
--- NOTE | ~2023-06-11 | XR_ITS ---
EXAMINATION: XR CHEST CLINICAL INFORMATION: Shortness of breath COMPARISON: 05/12/2022 TECHNIQUE: 2 views of the chest were obtained. FINDINGS: No significant abnormality is noted involving the heart, lungs, mediastinum, bony thorax or soft tissues. XR/XR chest 2V IMPRESSION: Unremarkable examination.
[2023-06-11 18:57] VITALS: BP 106/50; PULSE 105; RESP 18; TEMP 36.8; O2SAT 95; BMI 47.2
[2023-06-11 19:25] LABS: Baso%MD 0.8 %; Eos%MD 3.3 %; Hematocrit 35.2 % (37.0-47.0); Hemoglobin 11.5 g/dl (12.0-16.0); IG%MD 0.1 %; Lymph%MD 41.4 %; Mean Corpuscular HGB Conc 32.7 g/dl (31.0-35.0); Mean Corpuscular Hemoglobin 27.8 pg (27.0-33.0); Mean Corpuscular Volume 85.2 fL (80.0-98.0); Mean Platelet Volume 9.2 fL (9.4-12.3); Mono%MD 6.1 %; Neut%MD 48.3 %; Platelet Count 126 X10*3/uL (160-400); Red Blood Count 4.13 X10*6/uL (4.20-5.50); Red Cell Distribution Width 16.6 % (11.0-16.0); White Blood Count 7.2 X10*3/uL (4.8-10.8)
[2023-06-11 19:40] LABS: Lipase 25 U/L (8-78)
[2023-06-11 19:49] LABS: B Type Natriuretic Peptide 10 pg/mL (<100)
[2023-06-11 20:11] LABS: Influenza A PCR NEGATIVE (Negative); Influenza B PCR NEGATIVE (Negative); Resp Syncy Virus RNA Qual PCR NEGATIVE (Negative); SARS COV2 PCR INHOUSE NEGATIVE (Negative)
[2023-06-11 20:33] LABS: Band Neutrophils Percent 2 % (3-5); Basophils Abs Manual 0.1 X10*3/uL (0.0-0.2); Basophils Percent Manual 2 % (0-2); Eosinophils Absolute Manual 0.1 X10*3/uL (0.0-0.4); Eosinophils Percent Manual 1 % (0-4); Lymphocytes Absolute Manual 3.2 X10*3/uL (1.2-4.9); Lymphocytes Percent Manual 44 % (20-40); Monocytes Absolute Manual 0.1 X10*3/uL (0.1-1.2); Monocytes Percent Manual 1 % (2-11); Neutrophils Absolute Manual 3.7 X10*3/uL (2.0-8.3); Neutrophils Percent Manual 50 % (45-73); Platelet Estimate SLIGHTLY DECREASED (NORMAL); Platelet Morphology Comment NORMAL; RBC Morphology NORMAL
[2023-06-11 21:54] VITALS: BP 130/64; PULSE 108; RESP 20; TEMP 36.3; O2SAT 98
[2023-06-12 00:20] LABS: Anion Gap 17 (12-20)
[2023-06-12 00:23] LABS: Blood Urea Nitrogen 6 mg/dL (9-16); Calcium 8.8 mg/dL (8.4-10.2); Carbon Dioxide 25 mmol/L (22-29); Chloride 102 mmol/L (96-108); Creatinine Clr Calc Pharmacy 117.6; Estimated Glomerular Filt Rate > 60; Glucose Random 224 mg/dL (60-115); Potassium 3.2 mmol/L (3.3-5.1); Sodium 141 mmol/L (135-145)
--- NOTE | 2023-06-12 00:32 | ED.SOB ---
HPI - SOB/Dyspnea General Chief Complaint: Dyspnea Stated Complaint: SOB/ Water Retention Time Seen by Provider: 06/12/23 00:12 Source: patient, RN notes reviewed and old records reviewed Mode of arrival: ambulatory History of Present Illness HPI Narrative: 33-year-old female with a past medical history of bipolar, hepatitis-C, asthma, presenting to the ED complaining of worsening asthma exacerbation/SOB and productive cough x 1 week worsening over the past few days. Also reports bilateral LE pitting edema which is acute on chronic. Admits in the past has been on diuretics however not for many years. Reports edema fluctuates intermittently. Has been using treatments at home without relief. Denies fever, chest pain, recent travel, sick contacts, abdominal pain, nausea/vomiting MD elicited complaint: shortness of breath and cough Related Data Home Medications Medication Instructions Recorded Confirmed buprenorphine 8 mg-naloxone 2 mg 2 film buccal DAILY 05/04/20 sublingual film (Suboxone) buprenorphine HCl 8 mg sublingual 16 mg sublingual DAILY 01/05/21 tablet Previous Rx's Medication Instructions Recorded furosemide 20 mg tablet 10 mg (1/2 x 20 mg) PO QAM #30 tabs 05/01/20 albuterol sulfate 90 mcg/actuation 2 puff inhalation QID shortness of 07/27/20 aerosol inhaler breath or wheezing #8.5 grams furosemide 20 mg tablet 20 mg PO QAM PRN for swelling #30 11/01/20 tabs montelukast 10 mg tablet 10 mg PO DAILY #30 tabs 05/05/21 bupropion HCl 200 mg tablet,12 hr 200 mg PO BID #180 caps 06/11/21 sustained-release aripiprazole 2 mg tablet 2 mg PO DAILY #30 tabs 10/01/21 amoxicillin 875 mg-potassium 1 tab PO BID #14 tabs 12/18/21 clavulanate 125 mg tablet prednisone 20 mg tablet 40 mg (2 x 20 mg) PO DAILY 4 days 12/18/21 #8 tabs cefuroxime axetil 500 mg tablet 500 mg PO BID #20 tabs 03/03/22 prednisone 20 mg tablet 40 mg (2 x 20 mg) PO DAILY #10 tabs 03/03/22 furosemide 40 mg tablet (Lasix) 40 mg PO DAILY 7 days #7 tabs 06/12/23 prednisone 20 mg tablet 40 mg (2 x 20 mg) PO DAILY 4 days 06/12/23 #8 tabs Allergies Allergy/AdvReac Type Severity Reaction Status Date / Time No Known Allergies Allergy Verified 06/11/23 18:57 Review of Systems Review of Systems: Constitutional: No Fever, No Chills ENT/Mouth: No Ear Pain, No Nasal Congestion, No sore throat, No Rhinorrhea, No Swallowing Difficulty Cardiovascular: No Chest Pain, +SOB, +Edema Respiratory: +Cough, +Sputum, No Wheezing Gastrointestinal: No Nausea, No Vomiting, No Diarrhea, No Constipation, No Abdominal pain Musculoskeletal: No joint pain, No Myalgias, No Joint Swelling Skin: No Skin Lesions, No rash Neuro: No Weakness, No Numbness Yes all other systems are reviewed and are negative Constitutional: Constitutional: Reports as per [facility] Past Medical History Attestation statement: The following information was validated with the patient. Source: old records reviewed Medical History Hepatitis C Active asthma Bipolar disorder Social History Social History Alcohol intake: never Patient Tobacco Use Status: Tobacco use Unknown Advance Directives: No Advance Directives Information Provided: No Physical Exam Vital Signs: Vital Signs: Last Vital Signs Temp 97.4 F 06/11/23 21:54 Pulse 96 06/12/23 01:19 Resp 23 H 06/12/23 00:41 BP 158/69 H 06/12/23 00:54 Pulse Ox 96 06/12/23 00:41 O2 Del Method Room Air 06/12/23 00:41 BMI result Body Mass Index 47.2 Const: General: cooperative, healthy appearing and no acute distress Orientation/consciousness: patient oriented x3 Limitations: no limitations HEENT: Head: Yes normal to inspection and Yes atraumatic Ears: hearing grossly normal bilaterally General nose exam: Normal external nose present Face and sinus: Yes normal facial exam Eyes: General: appearance normal, both eyes and all related structures EOM: EOMs intact bilaterally Neck: Neck: Yes normal visual inspection and Yes no meningeal signs Resp: Effort & Inspection: normal respiratory effort and no respiratory distress Auscultation: wheezes (faint ) expiratory wheezes and lower bilaterally and diminished lung sounds bilateral in the lower lung gar Cardio: Rate: regular rate Heart sounds: S1 normal heart sound present and S2 normal heart sound present GI: Inspection: Yes normal to inspection Palpation (GI): Soft to palpation Skin: Rashes: no rashes Wounds: no wounds Neuro: General: patient oriented x3, tone normal and no meningeal signs Cranial nerves: Yes CN's II-XII intact bilaterally Gait exam (Neuro): Normal gait present Extrem: General: Yes edema (2+ bilateral LE pitting edema. No calf tenderness) Course Course Course Narrative: -003--no leukocytosis. H&H stable. Potassium mildly low 3.2 > PO repletion ordered -COVID/flu/RSV negative 136--XR chest 2V IMPRESSION: Unremarkable examination. >144--on re-evaluation results discussed, no respiratory distress. Respiratory never saw patient/completed bronchodilator protocol & she did not receive breathing treatment. At this time patient would like to be discharged without breathing treatments/waiting any longer > is agreeable to wait for albuterol inhaler, will administer 8 puffs prior to discharge. Patient has nebulizer at home, discussed importance of diligent/compliance with nebulizer, and will be discharged with inhaler. >> Results discussed with patient including worrisome signs and symptoms and strict return precautions, and when to return to the emergency department. They verbalized understanding and feel safe for discharge at this time. Medications Administered Discontinued Medications Generic Name Dose Route Start Last Admin Trade Name Asimq PRN Reason Stop Dose Admin Furosemide 40 mg 06/12/23 00:19 06/12/23 00:49 Furosemide 40 Mg Tablet PO 06/12/23 00:20 40 mg ONCE ONE Administration Protocol Potassium Chloride 60 meq 06/12/23 00:38 06/12/23 00:49 Potassium Chloride Packet 20 Meq Packet PO 06/12/23 00:39 60 meq ONCE ONE Administration Prednisone 40 mg 06/12/23 00:35 06/12/23 00:49 Prednisone 20 Mg Tablet PO 06/12/23 00:36 40 mg ONCE ONE Administration Medical Decision Making Medical Decision Making MDM Narrative: 33-year-old female with a past medical history of bipolar, hepatitis-C, asthma, presenting to the ED complaining of worsening asthma exacerbation/SOB and productive cough x 1 week worsening over the past few days. Also reports bilateral LE pitting edema which is acute on chronic. 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 2+ bilateral LE pitting edema. Concern for viral illness vs asthma exacerbation vs CHF/fluid overload vs pneumonia/bronchitis. Lower suspicion for PE/ACS or DVT Plan: EKG, labs, viral testing, CXR, PO Lasix, ED bronch protocol, p.o. prednisone Please refer to course for remaining clinical decision making, interpretation of labs/imaging results, and discussions with consultants and/or family members. Differential Diagnosis Differential Diagnoses: The differential diagnosis associated with the presentation includes As above Admission/Observation Consideration of admission/observation: Escalation of care including admission/observation considered Lab Data MDM Lab Attestation statement: I reviewed the patient's lab results. 06/11/23 19:17 06/11/23 19:17 Labs: Lab Results 06/11/23 Range/Units 19:17 WBC 7.2 (4.8-10.8) X10*3/uL RBC 4.13 L D (4.20-5.50) X10*6/uL Hgb 11.5 L (12.0-16.0) g/dl Hct 35.2 L (37.0-47.0) % MCV 85.2 (80.0-98.0) fL MCH 27.8 (27.0-33.0) pg MCHC 32.7 (31.0-35.0) g/dl RDW 16.6 H (11.0-16.0) % Plt Count 126 L (160-400) X10*3/uL MPV 9.2 L (9.4-12.3) fL Absolute Nucleated RBC 0.000 (0.0-0.012) X10*3/uL Nucleated RBC % (auto) 0.0 (0.0-0.2) /100WBC Neutrophils % (Manual) 50 (45-73) % Band Neutrophils % 2 L (3-5) % Lymphocytes % (Manual) 44 H (20-40) % Monocytes % (Manual) 1 L (2-11) % Eosinophils % (Manual) 1 (0-4) % Basophils % (Manual) 2 (0-2) % Abs Neuts (Manual) 3.7 (2.0-8.3) X10*3/uL Lymphocytes # (Manual) 3.2 (1.2-4.9) X10*3/uL Monocytes # (Manual) 0.1 (0.1-1.2) X10*3/uL Eosinophils # (Manual) 0.1 (0.0-0.4) X10*3/uL Basophils # (Manual) 0.1 (0.0-0.2) X10*3/uL Platelet Estimate SLIGHTLY DECREASED (NORMAL) Plt Morphology Comment NORMAL RBC Morphology NORMAL Sodium 141 (135-145) mmol/L Potassium 3.2 L (3.3-5.1) mmol/L Chloride 102 (96-108) mmol/L Carbon Dioxide 25 (22-29) mmol/L Anion Gap 17 (12-20) BUN 6 L (9-16) mg/dL Creatinine 0.78 (0.5-1.4) mg/dL Estim Creat Clear Calc 117.6 Estimated GFR > 60 Random Glucose 224 H (60-115) mg/dL Calcium 8.8 D (8.4-10.2) mg/dL Troponin I High Sens 3.3 (<3.5-17.0) ng/L B-Natriuretic Peptide 10 (<100) pg/mL Lipase 25 (8-78) U/L Influenza Type A (PCR) NEGATIVE (Negative) Influenza Type B (PCR) NEGATIVE (Negative) RSV RNA Qual (PCR) NEGATIVE (Negative) SARS-CoV-2 RNA (RT-PCR) NEGATIVE (Negative) Independent Interpretation I performed an independent interpretation of an: EKG and Plain X-Ray Radiology Impression Discussion of test interpretation with radiology: I have reviewed the radiologist's reading. External Record Review External record reviewed: Inpatient record, Office record, Outpatient record, Prior outpatient labs, Prior outpatient radiology, Primary care record and Outside ED record Tests considered The following testing was considered but not selected: As above Prescription Management I considered prescription management with: Antibiotic Chronic Conditions Patient?s care impacted by: Other (asthma) Discharge Plan Discharge Clinical Impression: Asthma exacerbation, Leg edema Patient Disposition: Home, Self-Care Instructions: Asthma (DC), Leg Edema (ED) Additional Instructions: Your potassium was mildly low. Consider taking outpatient potassium supplements Your blood work was reassuring. She tested negative for COVID, flu, RSV Your x-rays unremarkable Continue to use your neb machine and inhalers at home In addition take prednisone and Lasix is a diarrhetic which will help with your swelling Please follow-up with her doctor within 1 week for re-evaluation and repeat blood work outpatient Prescriptions: New furosemide [Lasix] 40 mg tablet 40 mg PO DAILY 7 Days Qty: 7 0RF prednisone 20 mg tablet 40 mg PO DAILY 4 Days Qty: 8 0RF No Action furosemide 20 mg tablet 10 mg PO QAM Qty: 30 0RF Hold Instructions: Dose Change Rx Instructions: 1 tablet every a/m PRN for swelling buprenorphine-naloxone [Suboxone] 8-2 mg film 2 film buccal DAILY Rx Instructions: place 1 film on inside of (each) cheek albuterol sulfate 90 mcg/actuation HFA aerosol inhaler 2 puff inhalation QID Qty: 8.5 2RF furosemide 20 mg tablet 20 mg PO QAM PRN (Reason: for swelling) Qty: 30 4RF montelukast 10 mg tablet 10 mg PO DAILY Qty: 30 0RF bupropion HCl 200 mg tablet sustained-release 12 hr 200 mg PO BID Qty: 180 1RF aripiprazole 2 mg tablet 2 mg PO DAILY Qty: 30 1RF prednisone 20 mg tablet 40 mg PO DAILY 4 Days Qty: 8 0RF amoxicillin-pot clavulanate 875-125 mg tablet 1 tab PO BID Qty: 14 0RF prednisone 20 mg tablet 40 mg PO DAILY Qty: 10 0RF cefuroxime axetil 500 mg tablet 500 mg PO BID Qty: 20 0RF buprenorphine HCl 8 mg tablet, sublingual 16 mg sublingual DAILY Referrals: Physician,Unknown J [Primary Care Provider] - 1 week
--- NOTE | 2023-06-12 00:35 | ECG_ITS ---
Test Reason : sob Blood Pressure : / mmHG Vent. Rate : 094 BPM Atrial Rate : 094 BPM P-R Int : 136 ms QRS Dur : 086 ms QT Int : 370 ms P-R-T Axes : 061 020 023 degrees QTc Int : 462 ms Normal sinus rhythm Minimal voltage criteria for LVH, may be normal variant ( R in aVL ) Borderline ECG When compared with ECG of 12-MAY-2022 16:58, Nonspecific T wave abnormality now evident in Inferior leads Referred By: Edith Cotton Electronically Signed By:ABRIL KEITH MD
[2023-06-12 00:41] VITALS: PULSE 104; RESP 23; O2SAT 96
[2023-06-12] MEDS: Furosemide 40 MG TABLET PO (00:49)
[2023-06-12] MEDS: predniSONE 20 MG TABLET 40 MG PO (00:49)
[2023-06-12] MEDS: Potassium Chloride Packet 20 MEQ PACKET 60 MEQ PO (00:49)
[2023-06-12 00:54] VITALS: BP 158/69
[2023-06-12 00:58] LABS: Troponin-I High Sensitivity 3.3 ng/L (<3.5-17.0)
--- NOTE | 2023-06-12 01:17 | PC.NURSE ---
pt changed into gown put on heart monitor. ekg obtained. pt medicated per aug. pt reports cp has resolved im just making my anxiety worse by working myself up d/t being here. pt educated on plan of care and appears to be more comfortable. awaiting further orders at this time. nsr on monitor sats 97% on RA. lung sounds slightly diminished, inspiratory wheezing noted bilat upper lobes. call martinez within reach.
[2023-06-12 01:19] VITALS: PULSE 96
[2023-06-12] MEDS: Albuterol Sulfate 90 MCG 8 GM INHALER 8 PUFF INHALE (01:56)
[2023-06-12 03:03] VITALS: PULSE 95; RESP 20; O2SAT 97
== END 2023-06-12 02:00 | disposition home or self-care (01) ==
PROVIDERS: Physician Assistant; Emergency Provider Emergency Medicine Emergency Medical Services
DX: J45.901 Unspecified asthma with (acute) exacerbation (principal); R60.0 Localized edema; R05.9 Cough, unspecified; B19.20 Unspecified viral hepatitis C without hepatic coma; R06.02 Shortness of breath; Z20.822 Contact with and (suspected) exposure to COVID-19; Z20.828 Contact with and (suspected) exposure to other viral communicable diseases
CPT/HCPCS: 0241U; 36415; 71046; 80048; 83690; 83880; 84484; 85007; 85027; 93005; 99285

== ENCOUNTER → 2023-06-12 00:35 | Outpatient (BNV) | payer OTHER, SELFPAY | PROVIDERS: Emergency Provider Emergency Medicine Emergency Medical Services; Visit Provider Internal Medicine Cardiovascular Disease | DX: R06.02 Shortness of breath (principal); R94.31 Abnormal electrocardiogram [ECG] [EKG] | CPT/HCPCS: 93010 ==

== ENCOUNTER 2023-06-26 18:33 | Emergency (ER) | payer OTHER, SELFPAY ==
--- NOTE | ~2023-06-26 | XR_ITS ---
EXAMINATION: XR CHEST CLINICAL INFORMATION: Shortness of breath. COMPARISON: Chest radiograph 06/12/2023. TECHNIQUE: 2 views of the chest were obtained. FINDINGS: Unchanged cardiomediastinal silhouette. No focal airspace opacities, pleural effusion or pneumothorax. No acute osseous findings. Visualized upper abdomen is within normal limits. XR/XR chest 2V IMPRESSION: No acute cardiopulmonary findings.
[2023-06-26 19:21] VITALS: BP 148/85; PULSE 98; RESP 20; TEMP 36.8; O2SAT 97; BMI 47.9
--- NOTE | 2023-06-26 19:22 | ED.GENADULT ---
HPI - General Adult General Chief complaint: General Medical Stated complaint: swelling in body - was seen here 2wks ago Time Seen by Provider: 06/26/23 21:28 Source: patient Mode of arrival: ambulatory Limitations: no limitations History of Present Illness HPI narrative: Patient is a 33 year old assigned female at with a history of asthma and edema presenting to the emergency department today with intermittent chest pain and concern she is swelling in her upper extremities. Patient states that she has been on a water pill for her lower leg edema but now feels like she is having upper body edema with intermittent chest pain. Patient denies any dizziness, lightheadedness, abdominal pain, nausea, vomiting, fever, chills, blurry vision, double vision, loss of vision, back pain, night sweats, pain with urination, increased urinary frequency, increased urinary urgency, blood in her urine or stool, syncope or a near syncopal episode, recent trauma or falls, bowel incontinence, bladder incontinence, bowel retention, bladder retention, or any other complaints at this time. Onset (ago): day(s) Severity: mild Relieving factors: none Exacerbating factors: none Associated symptoms: chest pain Treatments prior to arrival: none Related Data Home Medications Medication Instructions Recorded Confirmed buprenorphine 8 mg-naloxone 2 mg 2 film buccal DAILY 05/04/20 sublingual film (Suboxone) buprenorphine HCl 8 mg sublingual 16 mg sublingual DAILY 01/05/21 tablet Previous Rx's Medication Instructions Recorded furosemide 20 mg tablet 10 mg (1/2 x 20 mg) PO QAM #30 tabs 05/01/20 albuterol sulfate 90 mcg/actuation 2 puff inhalation QID shortness of 07/27/20 aerosol inhaler breath or wheezing #8.5 grams furosemide 20 mg tablet 20 mg PO QAM PRN for swelling #30 11/01/20 tabs montelukast 10 mg tablet 10 mg PO DAILY #30 tabs 05/05/21 bupropion HCl 200 mg tablet,12 hr 200 mg PO BID #180 caps 06/11/21 sustained-release aripiprazole 2 mg tablet 2 mg PO DAILY #30 tabs 10/01/21 amoxicillin 875 mg-potassium 1 tab PO BID #14 tabs 12/18/21 clavulanate 125 mg tablet prednisone 20 mg tablet 40 mg (2 x 20 mg) PO DAILY 4 days 06/25/22 #8 tabs cefuroxime axetil 500 mg tablet 500 mg PO BID #20 tabs 03/03/22 prednisone 20 mg tablet 40 mg (2 x 20 mg) PO DAILY #10 tabs 03/03/22 furosemide 40 mg tablet (Lasix) 40 mg PO DAILY 7 days #7 tabs 06/12/23 prednisone 20 mg tablet 40 mg (2 x 20 mg) PO DAILY 4 days 06/12/23 #8 tabs Allergies Allergy/AdvReac Type Severity Reaction Status Date / Time No Known Allergies Allergy Verified 06/11/23 18:57 Review of Systems Constitutional: Constitutional: Reports no additional constitutional complaints, Denies chills, Denies fever(s) and Denies night sweats Eyes: Eyes: Reports no additional eye complaints, Denies blurry vision, Denies change in vision, Denies diplopia, Denies eye discharge, Denies loss of vision and Denies eye pain ENT: Denies dizziness Cardiovascular: Cardiovascular: Reports no additional cardiovascular complaints, Reports chest pain, Denies lightheadedness and Denies Loss of Consciousness Respiratory: Respiratory: Reports no additional respiratory complaints Gastrointestinal: Gastrointestinal: Reports no additional gastrointestinal complaints, Denies abdominal pain, Denies melena, Denies hematochezia, Denies change in bowel habits and Denies change in stool character Genitourinary: Genitourinary: Denies hematuria, Denies urinary frequency, Denies dysuria, Denies urinary incontinence, Denies urinary hesitancy and Denies urinary urgency Musculoskeletal: Musculoskeletal: Reports no additional musculoskeletal complaints, Denies numbness and Denies tingling Neurologic: Denies dizziness, Denies loss of vision, Denies numbness and Denies tingling Psychiatric: Psychiatric: Reports no additional psychiatric complaints Endocrine: Endocrine: Reports no additional endocrine complaints Hematologic/Lymphatic: Hematologic/Lymphatic: Reports no additional hematologic/lymphatic complaints Allergic/Immunologic: Allergic/Immunologic: Reports no additional allergic/immunologic complaints PMFSH Past Medical History Attestation statement: The following information was validated with the patient. Source: old records reviewed and nursing notes reviewed Onset Date is defined in the Problem List Problems that require an onset date and time if occurred within 24 hrs of arrival to the ED Aortic Dissection and Rupture; Neurologic impairment; Cardiopulmonary Arrest; Endotracheal Intubation; Insertion or Replacement of Mechanical Circulatory Assist Device Medical History Hepatitis C Active asthma Bipolar disorder Social History Social History Alcohol intake: never Patient Tobacco Use Status: Tobacco use Unknown Advance Directives: No Advance Directives Information Provided: No Physical Exam ED Vital Signs: Vital Signs - 24 hr 06/26/23 19:21 06/26/23 21:29 Temperature 98.3 F 97.6 F Pulse Rate 98 102 H Respiratory Rate 20 20 Blood Pressure 148/85 H 152/96 H Pulse Oximetry 97 97 Oxygen Delivery Method Room Air Room Air BMI result Body Mass Index 47.9 Const General: cooperative, no acute distress, alert and awake Nutritional Appearance: well nourished Orientation/consciousness: patient oriented x3 Limitations: no limitations HENMT Head: Yes normal to inspection and Yes atraumatic Ears: hearing grossly normal bilaterally and external ears normal General nose exam: Normal external nose present, no nasal discharge noted and no epistaxis Face and sinus: Yes normal facial exam, No abrasion and No laceration Mouth: Normal oral and palatal mucosa present, no drooling and no muffled voice Eyes General: appearance normal, both eyes and all related structures Periorbital: periorbital findings normal Eyelids: Yes eyelids normal Conjunctivae: conjunctivae normal Pupils: Equal, round and reactive pupils present EOM: EOMs intact bilaterally Neck Neck: Yes normal visual inspection, Yes full ROM and Yes no lymphadenopathy Chest Chest palpation & inspection: normal inspection of the chest Resp Effort & Inspection: normal respiratory effort and able to speak in complete sentences GI Inspection: Yes normal to inspection Neuro General: patient oriented x3 and moves all extremities Cranial nerves: Yes Equal, round and reactive pupils present Cognition (Neuro): normal cognition Motor exam (neuro): 5/5 motor strength present throughout Sensory Exam: Normal double simultaneous stimulation for sensation Coordination: [id number] test normal Extrem General: Yes normal to inspection, Yes full ROM and Yes capillary refill normal Psych Appearance: grossly normal Mental Status: mental status grossly normal Affect: normal affect Attitude: cooperative Thought process: Normal thought process present Thought content: Normal thought content present Insight: Good insight present (Psych) Course Course Course Narrative: This is a rapid medical exam. Deferred additional HPI, ROS, PE to primary provider. 33-year-old female with a past medical history of bipolar, hepatitis-C, asthma here with complaints of increasing leg edema which she feels is extending to her arms with numbness. Was here 06/12 and given 7 days of lasix which helped. Patient does not have PCP so unable to follow-up with anyone. +SOB, cough, wheezing Will obtain labs, EKG, CXR VSS Medical Decision Making Medical Decision Making [facility] Narrative: Patient is a 33 year old assigned female at with a history of asthma and edema presenting to the emergency department today with intermittent chest pain and possible swelling. Patient's physical exam was unremarkable. Patient's blood work was unremarkable. Patient's EKG was unremarkable. Patient's chest x-ray showed no acute process. I explained my physical exam findings as well as all test results to the patient. I answered all questions asked by the patient. I stressed the importance of the patient taking her medication as prescribed. I stressed the importance of the patient following up with her primary care provider. I stressed the importance of the patient returning to the emergency department immediately if her symptoms were to worsen or if she were to develop any dizziness, shortness of breath, difficulty breathing, chest pain, blurry vision, loss of vision, nausea, vomiting, abdominal pain, fever, chills, back pain, or any other complaints. Patient verbalized agreement and understanding with this treatment plan and discharge. Differential Diagnosis Differential Diagnoses: The differential diagnosis associated with the presentation includes Chest pain STEMI NSTEMI Anxiety Asthma exacerbation Edema Admission/Observation Consideration of admission/observation: Escalation of care including admission/observation considered Patient would have been admitted to the hospital had her work up had any findings where hospital admission was appropriate and her clinical presentation warranted hospital admission. Lab Data [facility] Lab Attestation statement: I reviewed the patient's lab results. My interpretation of these results are in the [facility] Rationale portion of this note. 06/26/23 19:56 06/26/23 19:56 Labs: Lab Results 06/26/23 Range/Units 19:56 WBC 7.2 (4.8-10.8) X10*3/uL RBC 4.37 (4.20-5.50) X10*6/uL Hgb 12.2 (12.0-16.0) g/dl Hct 37.5 (37.0-47.0) % MCV 85.8 (80.0-98.0) fL MCH 27.9 (27.0-33.0) pg MCHC 32.5 (31.0-35.0) g/dl RDW 15.8 (11.0-16.0) % Plt Count 127 L (160-400) X10*3/uL MPV 9.5 (9.4-12.3) fL Immature Gran % (Auto) 0.4 (0.0-0.4) % Neut % (Auto) 65.7 (45-73) % Lymph % (Auto) 25.9 (20-40) % [place] % (Auto) 4.3 (2-11) % Eos % (Auto) 3.1 (0-4) % Baso % (Auto) 0.6 (0-2) % Lymph # (Auto) 1.9 (1.2-4.9) X10*3/uL [place] # (Auto) 0.3 (0.1-1.2) X10*3/uL Eos # (Auto) 0.2 (0.0-0.4) X10*3/uL Baso # (Auto) 0.0 (0.0-0.2) X10*3/uL Abs Immat Gran (auto) 0.03 (0.00-0.03) X10*3/uL Absolute Neuts (auto) 4.7 (2.0-8.3) x10*3/uL Absolute Nucleated RBC 0.000 (0.0-0.012) X10*3/uL Nucleated RBC % (auto) 0.0 (0.0-0.2) /100WBC Sodium 138 (135-145) mmol/L Potassium 3.5 (3.3-5.1) mmol/L Chloride 105 (96-108) mmol/L Carbon Dioxide 21 L (22-29) mmol/L Anion Gap 16 (12-20) BUN 6 L (9-16) mg/dL Creatinine 0.64 (0.5-1.4) mg/dL Estim Creat Clear Calc 144.7 Estimated GFR > 60 Random Glucose 201 H (60-115) mg/dL Calcium 8.7 (8.4-10.2) mg/dL Magnesium 1.9 (1.6-2.6) mg/dL Total Bilirubin 0.3 (0.0-1.0) mg/dL Direct Bilirubin 0.2 (0.0-0.5) mg/dL AST 59 H (5-31) U/L ALT 46 H (0-31) U/L Alkaline Phosphatase 107 (39-117) U/L Troponin I High Sens < 2.7 (<3.5-17.0) ng/L B-Natriuretic Peptide 15 (<100) pg/mL Total Protein 7.9 (6.5-8.0) g/dL Albumin 3.8 (3.5-5.0) g/dL Independent Interpretation I performed an independent interpretation of an: EKG and Plain X-Ray Interpretation: My interpretation is in agreement with the radiologist's impression of this imaging study. EXAMINATION: XR CHEST CLINICAL INFORMATION: Shortness of breath. COMPARISON: Chest radiograph 06/12/2023. TECHNIQUE: 2 views of the chest were obtained. FINDINGS: Unchanged cardiomediastinal silhouette. No focal airspace opacities, pleural effusion or pneumothorax. No acute osseous findings. Visualized upper abdomen is within normal limits. XR/XR chest 2V IMPRESSION: No acute cardiopulmonary findings. Dictated By: Kalyani Carreon Signed By: Electronically signed by Kalyani Carreon 06/26/232014 Vent. Rate: 093 BPM Atrial Rate: 093 BPM P-R Int: 148 ms QRS Dur: 092 ms QT Int: 374 ms P-R-T Axes: 045 018 066 degrees QTc Int: 465 ms Normal sinus rhythm Minimal voltage criteria for LVH, may be normal variant ( R in aVL ) Nonspecific ST and T wave abnormality Prolonged QT Abnormal ECG When compared with ECG of 12-JUN-2023 01:11, Nonspecific T wave abnormality no longer evident in Inferior leads DD/ 47 Radiology Impression Discussion of test interpretation with radiology: I have reviewed the radiologist's reading. Discharge Plan Discharge Clinical Impression: Asthma Patient Disposition: Home, Self-Care Instructions: Asthma (DC) Additional Instructions: Follow up with your primary care provider. Return to the emergency department immediately if your symptoms worsen or if you develop any dizziness, shortness of breath, difficulty breathing, chest pain, blurry vision, loss of vision, nausea, vomiting, abdominal pain, fever, chills, back pain, or any other complaints. Prescriptions: No Action furosemide 20 mg tablet 10 mg PO QAM Qty: 30 0RF Hold Instructions: Dose Change Rx Instructions: 1 tablet every a/m PRN for swelling buprenorphine-naloxone [Suboxone] 8-2 mg film 2 film buccal DAILY Rx Instructions: place 1 film on inside of (each) cheek albuterol sulfate 90 mcg/actuation HFA aerosol inhaler 2 puff inhalation QID Qty: 8.5 2RF furosemide 20 mg tablet 20 mg PO QAM PRN (Reason: for swelling) Qty: 30 4RF montelukast 10 mg tablet 10 mg PO DAILY Qty: 30 0RF bupropion HCl 200 mg tablet sustained-release 12 hr 200 mg PO BID Qty: 180 1RF aripiprazole 2 mg tablet 2 mg PO DAILY Qty: 30 1RF prednisone 20 mg tablet 40 mg PO DAILY 4 Days Qty: 8 0RF amoxicillin-pot clavulanate 875-125 mg tablet 1 tab PO BID Qty: 14 0RF prednisone 20 mg tablet 40 mg PO DAILY Qty: 10 0RF cefuroxime axetil 500 mg tablet 500 mg PO BID Qty: 20 0RF furosemide [Lasix] 40 mg tablet 40 mg PO DAILY 7 Days Qty: 7 0RF prednisone 20 mg tablet 40 mg PO DAILY 4 Days Qty: 8 0RF buprenorphine HCl 8 mg tablet, sublingual 16 mg sublingual DAILY Ref[place]: [facility] [place] [facility] [place] (Call to establish and follow up with a primary care provider. If you already have a primary care provider, please follow up with them.) [facility] [place] [facility]Provider Group] (Call to establish and follow up with a primary care provider. If you already have a primary care provider, please follow up with them.) [facility] [place] [facility] [place] Group] (Call to establish and follow up with a primary care provider. If you already have a primary care provider, please follow up with them.) Stand Alone Forms: Work/School Release Interventions: ED Discharge Assessment Last Done: 06/26/23 21:32 Discharge Date/Time: 06/26/23 21:35 Print Language: Telugu
--- NOTE | 2023-06-26 19:25 | ECG_ITS ---
Test Reason : body swollen Blood Pressure : / mmHG Vent. Rate : 093 BPM Atrial Rate : 093 BPM P-R Int : 148 ms QRS Dur : 092 ms QT Int : 374 ms P-R-T Axes : 045 018 066 degrees QTc Int : 465 ms Normal sinus rhythm Minimal voltage criteria for LVH, may be normal variant ( R in aVL ) Nonspecific ST and T wave abnormality Prolonged QT Abnormal ECG When compared with ECG of 12-JUN-2023 01:11, Nonspecific T wave abnormality no longer evident in Inferior leads Referred By: Nevaeh Fisher Electronically Signed By:Epifanio Liu
--- NOTE | 2023-06-26 19:59 | MHC.EDTECH ---
Patient ekg taken and was read by Provider ,blood drawn and sent to lab .
[2023-06-26 20:01] LABS: MANUAL DIFF FLAG NO
[2023-06-26 20:03] LABS: Basophils Percent Auto 0.6 % (0-2); Eosinophils Absolute Auto 0.2 X10*3/uL (0.0-0.4); Eosinophils Percent Auto 3.1 % (0-4); Hematocrit 37.5 % (37.0-47.0); Hemoglobin 12.2 g/dl (12.0-16.0); Imm Gran Abs Auto 0.03 X10*3/uL (0.00-0.03); Imm Gran Pct Auto 0.4 % (0.0-0.4); Lymphocytes Absolute Auto 1.9 X10*3/uL (1.2-4.9); Lymphocytes Percent Auto 25.9 % (20-40); Mean Corpuscular HGB Conc 32.5 g/dl (31.0-35.0); Mean Corpuscular Hemoglobin 27.9 pg (27.0-33.0); Mean Corpuscular Volume 85.8 fL (80.0-98.0); Mean Platelet Volume 9.5 fL (9.4-12.3); Monocytes Absolute Auto 0.3 X10*3/uL (0.1-1.2); Monocytes Percent Auto 4.3 % (2-11); Neutrophils Absolute Auto 4.7 x10*3/uL (2.0-8.3); Neutrophils Percent Auto 65.7 % (45-73); Platelet Count 127 X10*3/uL (160-400); Red Blood Count 4.37 X10*6/uL (4.20-5.50); Red Cell Distribution Width 15.8 % (11.0-16.0); White Blood Count 7.2 X10*3/uL (4.8-10.8)
[2023-06-26 20:16] LABS: Alanine Aminotransferase 46 U/L (0-31); Albumin Level 3.8 g/dL (3.5-5.0); Alkaline Phosphatase 107 U/L (39-117); Anion Gap 16 (12-20); Aspartate Amino Transferase 59 U/L (5-31); Bilirubin Direct 0.2 mg/dL (0.0-0.5); Bilirubin Total 0.3 mg/dL (0.0-1.0); Blood Urea Nitrogen 6 mg/dL (9-16); Calcium 8.7 mg/dL (8.4-10.2); Carbon Dioxide 21 mmol/L (22-29); Chloride 105 mmol/L (96-108); Creatinine Clr Calc Pharmacy 144.7; Estimated Glomerular Filt Rate > 60; Glucose Random 201 mg/dL (60-115); Magnesium 1.9 mg/dL (1.6-2.6); Potassium 3.5 mmol/L (3.3-5.1); Sodium 138 mmol/L (135-145); Total Protein 7.9 g/dL (6.5-8.0)
[2023-06-26 20:22] LABS: B Type Natriuretic Peptide 15 pg/mL (<100)
[2023-06-26 20:23] LABS: Troponin-I High Sensitivity < 2.7 ng/L (<3.5-17.0)
[2023-06-26 21:29] VITALS: BP 152/96; PULSE 102; RESP 20; TEMP 36.4; O2SAT 97
== END 2023-06-26 21:35 | disposition home or self-care (01) ==
PROVIDERS: Nurse Practitioner Family; Emergency Provider Internal Medicine
DX: J45.909 Unspecified asthma, uncomplicated (principal); R06.02 Shortness of breath; R60.0 Localized edema; F11.20 Opioid dependence, uncomplicated; Z79.899 Other long term (current) drug therapy
CPT/HCPCS: 36415; 71046; 80048; 80076; 83735; 83880; 84484; 85025; 93005; 99283; 99284

== ENCOUNTER → 2023-06-26 19:25 | Outpatient (BNV) | payer OTHER, SELFPAY | PROVIDERS: Emergency Provider Internal Medicine; Visit Provider Internal Medicine Cardiovascular Disease | DX: I45.81 Long QT syndrome (principal) | CPT/HCPCS: 93010 ==